=== PATIENT | male | born 1975 | race Two or more races ===

== ENCOUNTER 2016-10-08 10:22 | Emergency (ER) | payer OTHER ==
[2016-10-08 10:26] VITALS: BP 142/96; PULSE 108; TEMP 98.5; BMI 27.4
[2016-10-08] MEDS ORDERED: IBUPROFEN 600 MG TABLET (FP) PO ONE ×2 (10:39→10:40)
--- NOTE | 2016-10-08 11:07 | PDOC ---
History of Present Illness - General Chief Complaint: Pain, Acute Stated Complaint: LT KNEE PAIN Time Seen by Provider: 10/08/16 10:34 History Source: Patient Exam Limitations: No Limitations - History of Present Illness Initial Comments: 10/08/16 10:57 41 yr male with left knee injury yesterday playing baseball was running and twisted the knee on uneven grass surface. Pt did not fall on the knee. Occurred: reports: yesterday Severity: Yes: moderate Lower Extremity Pain Location: left: knee Method of Injury: Yes: twisted Lower Ext. Injury Location - Specific Injury Location Knees: left pain Past History - Past Medical History Allergies/Adverse Reactions: Allergies Allergy/AdvReac Type Severity Reaction Status Date / Time No Known Allergies Allergy Verified 10/08/16 10:25 Home Medications: Ambulatory Orders NK [No Known Home Medication] 10/08/16 HTN: Yes Hypercholesterolemia: Yes - Immunization History Immunization Up to Date: Yes - Psycho/Social/Smoking Cessation Hx Anxiety: No Suicidal Ideation: No Smoking History: Never smoked Have you smoked in the past 12 months: Yes Number of Cigarettes Smoked Daily: 2 'Breaking Loose' booklet given: 10/26/15 Hx Alcohol Use: Yes (SOCIAL) Drug/Substance Use Hx: No Substance Use Type: None Review of Systems - Review of Systems Able to Perform ROS?: Yes Is the patient limited Yoruba proficient: No Musculoskeletal: Yes: Symptoms Reported *Physical Exam - Vital Signs Last Vital Signs Temp Pulse Resp BP Pulse Ox 98.5 F 108 H 18 142/96 97 10/08/16 10:22 10/08/16 10:22 10/08/16 10:22 10/08/16 10:22 10/08/16 10:22 - Physical Exam General Appearance: Yes: Nourished, Appropriately Dressed HEENT: positive: EOMI, SHERIE Musculoskeletal: positive: Normal Inspection Extremity: positive: Normal Capillary Refill, Normal Inspection, Tender ( lateral knee, no bony tenderness FROM no swelling ). negative: Swelling, Erythema, Inflammation Integumentary: positive: Normal Color, Dry, Warm Neurologic: positive: Fully Oriented, Alert, Normal Mood/Affect, Normal Response , Motor Strength 5/5 Procedures - Splinting Pre-Made Type: knee immobilizer ED Treatment Course - RADIOLOGY Radiology Studies Ordered: Category Date Time Status KNEE 3 POS-LEFT [RAD] Stat Radiology 10/08/16 10:39 Taken - Medications Given in the ED: ED Medications Discontinued Medications Generic Name Dose Route Start Last Admin Trade Name Bianca PRN Reason Stop Dose Admin Ibuprofen 600 mg 10/08/16 10:39 10/08/16 10:47 Motrin - PO 10/08/16 10:40 600 mg ONCE ONE Administration Medical Decision Making - Medical Decision Making 10/08/16 11:09 cc: left knee twisted playing baseball yesterday will xray to r/o fracture, dislocation or effusion motrin for pain knee immobilizer *DC/Admit/Observation/Transfer Diagnosis at time of Disposition: Left knee sprain Qualifiers: Encounter type: initial encounter Involved ligament of knee: unspecified ligament Qualified Code(s): S83.92XA - Sprain of unspecified site of left knee, initial encounter - Discharge Dispostion Disposition: HOME Condition at time of disposition: Good - Referrals Referrals: Nick Little MD [Staff Physician] - - Patient Instructions Additional Instructions: elevate and apply ice every 2hrs for 20 minutes take motrin for pain as needed use the immobilizer while awake remove to sleep and bathe follow with the orthopedist this week
== END 2016-10-08 11:26 | disposition home or self-care (01) ==
LOC: JERFT 10:22
PROC: 2W3RXYZ Immobilization of Left Lower Leg using Other Device (ICD-10-PCS; principal; 2016-10-08)
DX: S83.8X2A Sprain of other specified parts of left knee, initial encounter (principal); X50.1XXA Overexertion from prolonged static or awkward postures, initial encounter; Y93.64 Activity, baseball; Y92.320 Baseball field as the place of occurrence of the external cause; Y99.8 Other external cause status
CPT/HCPCS: 73562-TC-LT; 99281-25

== ENCOUNTER 2016-12-27 14:19 | Inpatient (IN) | payer OTHER ==
[~2016-12-27 14:19] MED LIST: NITROGLYCERIN 0.4 MG/HOUR TD PATCH TD ONE
--- NOTE | 2016-12-27 14:27 | PDOC ---
Rapid Medical Evaluation Chief Complaint: Chest Pain Time Seen by Provider: 12/27/16 14:22 Medical Evaluation: Allergies Allergy/AdvReac Type Severity Reaction Status Date / Time No Known Allergies Allergy Verified 10/08/16 10:25 12/27/16 14:24 I have performed a brief in-person evaluation of this patient. The patient presents with a chief complaint of: Chest tightness w/ ?sob x several days. H/o HTN, not currently on meds. Last travel to [facility] >1 month ago Pertinent physical exam findings:BP 151/107, chest/lungs clear I have ordered the following:ekg/labs/cxr The patient will proceed to the ED for further evaluation.
--- NOTE | 2016-12-27 15:08 | PDOC ---
Attending Attestation - HPI HPI: 12/27/16 15:13 Pt is a 41 yo M with a PMHx of HTN, HLD who presents to the ED with substernal chest pain, radiating to the lower back with associated SOB for the past several days. Patient's last travel was one month ago to [facility]. - Medical Decision Making 12/27/16 15:13 Documentation prepared by Jackie Moreno, acting as associate medical director for Wellington Serra MD <Jackie Moreno - Last Filed: 12/27/16 15:25> - Resident Resident Name: Raul Sanchez - ED Attending Attestation I have performed the following: I have examined & evaluated the patient, The case was reviewed & discussed with the resident, I agree w/resident's findings & plan, Exceptions are as noted - Physicial Exam PE: 12/27/16 16:04 Patient is awake and alert, anxious appearing, in no distress; nc, atr perrla, eomi cta rrr sft, nt, nd no edema - Medical Decision Making 12/27/16 16:04 Patient is a 41-year-old male with history of alcohol abuse who presents to the ER with substernal chest discomfort, shortness of breath, dizziness and lightheadedness. In the ER, patient is afebrile, anxious appearing. EKG shows Q waves in 3 and aVF, as well as poor R wave progression in the precordial leads. I suspect ACS. Patient's CBC is concerning for elevated hemoglobin and hematocrit consistent with polycythemia (unlikely hemoconcentration). We'll administer aspirin, Pepcid, thiamine, we'll obtain chest x-ray to rule out cardiomegaly. Will hydrate. Likely admission. <Wellington Serra - Last Filed: 12/27/16 16:05>
[2016-12-27 15:17] LABS: EOSINOPHIL 0.8 % (0-4.5); MCH 34.4 pg (25.7-33.7); MCHC 33.9 g/dl (32.0-35.9); MEAN CELL VOLUME 101.5 fl (80-96); MEAN PLT VOLUME 8.8 fl (7.5-11.1); NEUTROPHILS 49.2 % (42.8-82.8); PLATELET COUNT 236 K/MM3 (134-434); RDW 14.5 % (11.9-15.9); WHITE BLOOD COUNT 5.8 K/mm3 (4.0-10.0)
[2016-12-27] MEDS ORDERED: ASPIRIN 81 MG CHEWABLE TABLETS PO ONE (15:17)
[2016-12-27] MEDS ORDERED: FAMOTIDINE 20 MG/50 ML IVPB 20 MG/50 ML MG IVPB ONE ×2 (15:17→15:27)
[2016-12-27] MEDS ORDERED: THIAMINE HCL 200 MG/2 ML VIAL IVPB ONE (15:18)
[2016-12-27] MEDS ORDERED: THIAMINE HCL 200 MG/2 ML VIAL ONE (15:27)
[2016-12-27] MEDS ORDERED: ASPIRIN 81 MG CHEWABLE TABLETS ONE (15:27)
[2016-12-27] MEDS ORDERED: NITROGLYCERIN SUBLINGUAL 1/150 0.4 MG TAB ONE (15:30)
[2016-12-27 15:31] LABS: ALBUMIN 3.4 g/dl (3.4-5.0); ANION GAP 7 (8-16); BILIRUBIN,TOTAL 1.6 mg/dL (0.2-1.0); CALCIUM 8.7 mg/dL (8.5-10.1); CO2 29 mmol/L (21-32); CPK 57 IU/L (39-308); CREATININE 1.2 mg/dL (0.7-1.3); GLUCOSE,RANDOM 117 mg/dL (74-106); SGOT/AST 94 U/L (15-37); SGPT/ALT 58 U/L (12-78); TOT PROT 7.6 g/dl (6.4-8.2)
[2016-12-27] MEDS ORDERED: NITROGLYCERIN 2% OINTMENT - 1GM PACKET TD ONE (15:31)
[2016-12-27 15:33] LABS: ALK PHOS 113 U/L (45-117); TROPONIN I < 0.02 ng/ml (0.00-0.05)
[2016-12-27] MEDS ORDERED: SODIUM CHLORIDE 1,000 ML IV STA ×2 (15:45→18:31)
--- NOTE | 2016-12-27 15:45 | PDOC ---
History of Present Illness <Wellington Serra - Last Filed: 12/27/16 17:50> - General History Source: Patient - History of Present Illness Presenting Symptoms: Dizziness, Short of Breath Timing/Duration: reports: intermittent Severity/Quality: reports: pressure Location: reports: substernal Chest Pain Radiation: reports: no radiation Nitro Today/Relief: Yes: 0.4 mg x 1, provided by ED Aspirin Received prior to arrival (Core Measure): Yes: 81 mg x 2, provided by ED Associated Symptoms: Yes: Dizziness, Palpitations, Shortness of Breath <Raul Sanchez - Last Filed: 12/27/16 18:48> - General Chief Complaint: Chest Pain Stated Complaint: CHEST PAIN Time Seen by Provider: 12/27/16 14:22 - History of Present Illness Initial Comments: 12/27/16 15:38 Patient is a 41 yo M with PMHx of HTN and HLD (not on any meds), presented today because of intermittent substernal chest pressure x 3-4 days that lasts about 30-45 minutes. He also says he has associated shortness of breath and dizziness when he gets the chest pressure. He feels as if he does not get enough air when he takes a deep breath. He has been drinking 40 ounces of beer every day for the last few months because of stress. He says drinking exacerbates his symptoms even though he drinks to try to alleviate his symptoms. He mentions he gets anxiety and panic attacks at times. He denies LOC , vertigo, headaches, itching, cough, fevers. abdominal pain, headaches, and weakness. (Raul Sanchez) Past History <Wellington Serra - Last Filed: 12/27/16 17:50> - Travel Traveled outside of the country in the last 30 days: No If so, where?: Traveled a month and a half ago to [facility] - Past Medical History COPD: No HTN: Yes (OFF MEDS) Hypercholesterolemia: Yes (OFF MEDS) - Family Disease History Family Disease History: Diabetes: Father, Heart Disease: Father - Immunization History Immunization Up to Date: Yes - Suicide/Smoking/Psychosocial Hx Smoking History: Never smoked Have you smoked in the past 12 months: Yes Number of Cigarettes Smoked Daily: 1 (1 ciggarrete a week) 'Breaking Loose' booklet given: 10/26/15 Hx Alcohol Use: Yes (40 ounces a day) Drug/Substance Use Hx: No Substance Use Type: Alcohol Hx Substance Use Treatment: No Lives with/in: spouse/SO <Raul Sanchez - Last Filed: 12/27/16 18:48> - Past Medical History Allergies/Adverse Reactions: Allergies Allergy/AdvReac Type Severity Reaction Status Date / Time No Known Allergies Allergy Verified 12/27/16 14:27 Home Medications: Ambulatory Orders NK [No Known Home Medication] 10/08/16 Review of Systems - Review of Systems Able to Perform ROS?: Yes Constitutional: Yes: Diaphoresis (when he drinks). No: Fever, Night Sweats, Weakness Respiratory: Yes: Shortness of Breath. No: Cough, Wheezing Cardiac (ROS): Yes: Palpitations, Chest Tightness. No: Syncope ABD/GI: No: Diarrhea, Nausea Neurological: Yes: Numbness (right hong numbness) Psychiatric: Yes: Anxiety <Raul Sanchez - Last Filed: 12/27/16 18:48> *Physical Exam <Wellington Serra - Last Filed: 12/27/16 17:50> <Raul Sanchez - Last Filed: 12/27/16 18:48> - Vital Signs Last Vital Signs Temp Pulse Resp BP Pulse Ox 97.7 F 68 16 135/94 99 12/27/16 14:24 12/27/16 17:52 12/27/16 17:52 12/27/16 18:36 12/27/16 14:24 - Physical Exam Comments: 12/27/16 16:17 General: Patient in no acute distress, anxious appearing HEENT: anicteric, oropharyanx clear without exudates CV:Regular rate, rhythm, no murmurs appreciated, pulses 1+ radial, No JVD Lung: CTA b/l, no rales, rhonchi or wheezing Abd: normoactive bowel sounds, nontender, non-distended, no hepatomegaly Ext: hand tremors, no bruising, cyanosis, edema, rashes (Raul Sanchez) ED Treatment Course - LABORATORY CBC & Chemistry Diagram: 12/27/16 14:55 12/27/16 14:55 <Wellington Serra - Last Filed: 12/27/16 17:50> - LABORATORY CBC & Chemistry Diagram: 12/27/16 14:55 12/27/16 14:55 <Raul Sanchez - Last Filed: 12/27/16 18:48> - ADDITIONAL ORDERS Additional order review: Laboratory Results 12/27/16 12/27/16 12/27/16 16:29 16:28 16:28 PT with INR 11.90 H INR 1.05 D-Dimer Sodium Potassium Chloride Carbon Dioxide Anion Gap BUN Creatinine Creat Clearance w eGFR Random Glucose Calcium Magnesium 1.9 Total Bilirubin AST ALT Alkaline Phosphatase Creatine Kinase 46 Troponin I < 0.02 Total Protein Albumin 12/27/16 12/27/16 16:06 14:55 PT with INR INR D-Dimer < 200 Sodium 136 Potassium 3.8 Chloride 100 Carbon Dioxide 29 Anion Gap 7 L BUN 2 L* D Creatinine 1.2 Creat Clearance w eGFR > 60 Random Glucose 117 H Calcium 8.7 Magnesium Total Bilirubin 1.6 H D AST 94 H D ALT 58 D Alkaline Phosphatase 113 D Creatine Kinase 57 Troponin I < 0.02 Total Protein 7.6 Albumin 3.4 12/27/16 14:55 RBC 5.80 H MCV 101.5 H MCHC 33.9 RDW 14.5 MPV 8.8 Neutrophils % 49.2 D Lymphocytes % 39.5 D Monocytes % 9.5 D Eosinophils % 0.8 Basophils % 1.0 - Medications Given in the ED: ED Medications Discontinued Medications Generic Name Dose Route Start Last Admin Trade Name Titoq PRN Reason Stop Dose Admin Aspirin 162 mg 12/27/16 15:17 12/27/16 15:32 Asa - PO 12/27/16 15:18 162 mg ONCE ONE Administration Famotidine/Sodium Chloride 20 mg in 50 mls @ 100 mls/hr 12/27/16 15:17 15:43 Pepcid 20 Mg Premixed Ivpb - IVPB 12/27/16 15:46 100 mls/hr ONCE ONE Administration Sodium Chloride 1,000 mls @ 1,000 mls/hr 12/27/16 15:45 12/27/16 16:10 Normal Saline - IV 12/27/16 16:44 1,000 mls/hr ASDIR STA Administration Nitroglycerin 0.4 mg 12/27/16 10:00 12/27/16 17:46 Nitro-Dur Patch - TD 12/27/16 10:01 0.4 mg ONCE ONE Administration Thiamine HCl 200 mg 12/27/16 15:18 12/27/16 15:51 Vitamin B1 Injection - IVPB 12/27/16 15:19 200 mg ONCE ONE Administration Medical Decision Making <Wellington Serra - Last Filed: 12/27/16 17:50> <Raul Sanchez - Last Filed: 12/27/16 18:48> - Medical Decision Making 12/27/16 16:21 Patient is a 41-year-old male with PMHx of HTN, HLD (not on any meds)presents to the ER with substernal chest discomfort, shortness of breath, dizziness and lightheadedness. EKG: Q waves in 3 and aVF, as well as poor R wave progression in the precordial leads. CBC: Hemoglobin 20, Crit 58.8 (likely polycythemia vera) Pending CXR IV fluids Aspirin 162 Nitroglycerin Thiamine 200 IV (recent drinking the last few months) Pt/INR Trops Pepcid Will admit patient for possible ACS, polycythemia 12/27/16 16:53 FU D-Dimer Trops negative CXR unremarkable Will contact hospitalist for admission inpatient-tele 12/27/16 16:55 Discussed case with hospitalized and agreed to admit. (Raul Sanchez) *DC/Admit/Observation/Transfer - Discharge Dispostion Admit: Yes <Wellington Serra - Last Filed: 12/27/16 17:50> - Discharge Dispostion Admit: Yes <Rual Sanchez - Last Filed: 12/27/16 18:48> Diagnosis at time of Disposition: Acute coronary syndrome, Polycythemia, Alcohol abuse - Discharge Dispostion Condition at time of disposition: Fair Decision to Admit order Date/Time: Decision to Admit Order Category Date Time Status Decision to Admit to Hospital Routine Admission 12/27/16 17:43 Active
[2016-12-27 16:51] LABS: INR 1.05 (0.82-1.09); PROTHROMBIN TIME (PATIENT) 11.9 SEC (9.98-11.88)
[2016-12-27 17:21] LABS: CPK 46 IU/L (39-308); TROPONIN I < 0.02 ng/ml (0.00-0.05)
--- NOTE | 2016-12-27 18:26 | PN ---
Teaching Attending Note Name of Resident: Georgina Sanchez ATTENDING PHYSICIAN STATEMENT I saw and evaluated the patient. I reviewed the resident's note and discussed the case with the resident. I agree with the resident's findings and plan as documented. SUBJECTIVE:41yo M with PMH HTN, dyslipidemia, HTN and anxiety with likley PTSD presenting to the ER with intermittent CP x3 days. assoc with SOB and dizzyness. states its more of a chest pressure non radiating not related to activity or rest that would self resolved in several minutes. states he has suffered from anixety and intermittent CP for years since 10/23 and had normal echo last month and normal treadmill stress test about 10 years ago. states he had lab work done about month ago and as per pt everything was fine. also admits to heavy drinking 40oz beer daily, poor oral intake with 15lb weight loss over the past few months. states he has food sticking sensation and has limited himself to only liquids and soft foods. denies fever, chills, N/V/C/D, pruritis after shower, hand swelling or erythema, recent travel to locations of high altitude, blood doping, Family hx only significant for congenital aortic valve disorder, no cardiac disease, no sudden deaths unexplained. no blood disorders OBJECTIVE: Last Vital Signs Temp Pulse Resp BP Pulse Ox 97.7 F 68 16 142/100 99 12/27/16 14:24 12/27/16 17:52 12/27/16 17:52 12/27/16 17:52 12/27/16 14:24 General mildly anxious HEENT face is not swollen or erythematous CV S1 S2 tachycardic no chest wall tenderness Lungs CTA B/L no wheezing/rales/rhonchi Abdomen soft NT/ND extremities no edema. no hand erythema or swelling ASSESSMENT AND PLAN: 41yo M with PMH HTN, dyslipidemia, anxiety with underlying PTSD and ETOH dependence presnted to the ER with chest pressure and found to have plycythema 1. Polycythemia- tele admission. concern that might be having hyperviscosity leading to chest pain, however this may be dehydration related. CXR clear. SpO2 99% on RA. no signs of hypoxia. labs from 2016 appear WNL. spoke with hematology who agrees with repeating labs and monitoring for improvement. if no improvement will need to consider phlebotomy. EPO pending. will need workup for causes of polycythemia 2. CP- possible due polycythemia vs stress induced. CEE 2. received full dose ASA and NTG patch in the ER. cardiac enzymes neg x2. will monitor on cardiac monitoring. call PMD for recent lab work, echo and EKG to compare. 3. Macrocytosis- likely due to ETOH. check vitamin B12 and folate 4. HTN- elevated diastolic HTN. will give lisinopril 5mg and monitor for response. 5. ETOH dependence- CIWA 2 (due to anxiety). no signs of withdrawal. admits to having drinking problem and interested in inpatient program. will consult detox specialist. has not completed inpatient rehab in the past. counseled on risks of drinking and increased mortality 6. Odynophagia- Gi workup as outpatient. 7. Anxiety and underlying PTSD- was seeing psychiatrist in the past which he stopped. encouraged to follow up on discharge. no homocidal/suicidal idealations 8. Dyslipidemia- check lipid profile. 9. DVT ppx- lovenox
[2016-12-27] MEDS ORDERED: LISINOPRIL 5 MG TABLET (FP) PO ONE (18:39)
[2016-12-27] MEDS ORDERED: SODIUM CHLORIDE 1,000 ML IV SCH (18:45)
[2016-12-27] MEDS ORDERED: FOLIC ACID INJECTION - 1 MG, THIAMINE HCL 100 MG, MULTIVIT INJECTION ADULT 10 ML in SOD... IVPB ONE (18:47)
[2016-12-27 18:50] LABS: MCHC 34.4 g/dl (32.0-35.9); MEAN CELL VOLUME 101.6 fl (80-96); MEAN PLT VOLUME 8.7 fl (7.5-11.1); PLATELET COUNT 268 K/MM3 (134-434); RDW 14.5 % (11.9-15.9); WHITE BLOOD COUNT 9.4 K/mm3 (4.0-10.0)
--- NOTE | 2016-12-27 18:55 | HP ---
CHIEF COMPLAINT: Chest Pressure, anxiety PCP: Dr. Cochran (in the [place]) HISTORY OF PRESENT ILLNESS: Patient is a 41 year old male with a PMHx of HTN and HLD (on no medications), anxiety who presented today complaining of intermittent chest pressure for the last three days associated with shortness of breath and dizziness. Patient reports the chest pressure occurs throughout the day and lasts around 35-40 minutes, nonradiating with no alleviating or exacerbating factors. Patient reports a history of anxiety associated with chest pressure shortness of breath for several years for which he went to his PCP for and had an echo done last month. Patient also admits to heavy daily alcohol use of 40 ounces of beer daily with poor oral intake and a 15 pound weight loss. Patient however denies any nausea, vomiting, abdominal pain, diarrhea, constipation, pruritis after showering, hand swelling or erythem, blood disorder, or diagnosed cardiac disease. ER course was notable for: (1) IV fluids (2) EKG which revealed Q waves in 3 and aVF, as well as poor R wave progression in the precordial lead (3) Nitroglycerin Recent Travel: Traveled a month and a half ago to [facility] PAST MEDICAL HISTORY: HTN and HLD but his PCP stopped his medications last month PAST SURGICAL HISTORY: Denies Social History: Smoking:Denies Alcohol: 40 ounces of beer a day for the last several months. Drugs: Denies Family History: Sister- Congenital aortic valve disorder Allergies: No Known Allergies Allergy (Verified 12/27/16 14:27) HOME MEDICATIONS: Home Medications Medication Instructions Recorded NK [No Known Home Medication] 10/08/16 REVIEW OF SYSTEMS CONSTITUTIONAL: diaphoresis Absent: fever, chills, generalized weakness, malaise, loss of appetite, weight change HEENT: Absent: rhinorrhea, nasal congestion, throat pain, throat swelling, difficulty swallowing, mouth swelling, ear pain, eye pain, visual changes CARDIOVASCULAR: Chest pressure Absent: chest pain, syncope, palpitations, irregular heart rate, lightheadedness , peripheral edema RESPIRATORY: shortness of breath Absent: cough, dyspnea with exertion, orthopnea, wheezing, stridor, hemoptysis GASTROINTESTINAL: Absent: abdominal pain, abdominal distension, nausea, vomiting, diarrhea, constipation, melena, hematochezia GENITOURINARY: Absent: dysuria, frequency, urgency, hesitancy, hematuria, flank pain, genital pain MUSCULOSKELETAL: Absent: myalgia, arthralgia, joint swelling, back pain, neck pain SKIN: Absent: rash, itching, pallor HEMATOLOGIC/IMMUNOLOGIC: Absent: easy bleeding, easy bruising, lymphadenopathy, frequent infections ENDOCRINE: Weight loss Absent: unexplained weight gain, heat intolerance, cold intolerance NEUROLOGIC: Absent: headache, focal weakness or paresthesias, dizziness, unsteady gait, seizure, mental status changes, bladder or bowel incontinence PSYCHIATRIC: Anxiety Absent: depression, suicidal or homicidal ideation, hallucinations. PHYSICAL EXAMINATION Vital Signs - 24 hr 12/27/16 12/27/16 12/27/16 14:24 17:52 18:36 Temperature 97.7 F Pulse Rate 95 H Pulse Rate [ 68 Apical] Respiratory 20 16 Rate Blood Pressure 151/107 Blood Pressure 142/100 135/94 [Right Arm] O2 Sat by Pulse 99 Oximetry (%) GENERAL: Anxious, Awake, alert, and fully oriented, in no acute distress. HEAD: Normal with no signs of trauma. EYES: Pupils equal, round and reactive to light, extraocular movements intact, sclera anicteric, conjunctiva clear. EARS, NOSE, THROAT: Oropharynx clear without exudates. Moist mucous membranes. NECK: Normal range of motion, supple without lymphadenopathy, JVD, or masses. LUNGS: Breath sounds equal, clear to auscultation bilaterally. No wheezes, and no crackles. No accessory muscle use. HEART: Tachycardic with regular rhythm, normal S1 and S2 without murmur, rub or gallop. ABDOMEN: Soft, nontender, not distended, normoactive bowel sounds, no guarding, no rebound, no masses. MUSCULOSKELETAL: No CVA tenderness. UPPER EXTREMITIES: No peripheral edema. LOWER EXTREMITIES: No peripheral edema. NEUROLOGICAL: Cranial nerves II-XII intact. Normal speech. Normal gait. PSYCHIATRIC: Cooperative. Good eye contact. Anxious SKIN: Warm, dry, normal turgor, no rashes or lesions noted, normal capillary refill. Laboratory Results - last 24 hr 12/27/16 12/27/16 12/27/16 14:55 14:55 16:06 WBC 5.8 RBC 5.80 H Hgb 20.0 H D Hct 58.8 H D MCV 101.5 H MCH 34.4 H D MCHC 33.9 RDW 14.5 Plt Count 236 MPV 8.8 Neutrophils % 49.2 D Lymphocytes % 39.5 D Monocytes % 9.5 D Eosinophils % 0.8 Basophils % 1.0 PT with INR INR D-Dimer < 200 Sodium 136 Potassium 3.8 Chloride 100 Carbon Dioxide 29 Anion Gap 7 L BUN 2 L* D Creatinine 1.2 Creat Clearance w eGFR > 60 Random Glucose 117 H Calcium 8.7 Magnesium Total Bilirubin 1.6 H D AST 94 H D ALT 58 D Alkaline Phosphatase 113 D Creatine Kinase 57 Troponin I < 0.02 Total Protein 7.6 Albumin 3.4 12/27/16 12/27/16 12/27/16 16:28 16:28 16:29 WBC RBC Hgb Hct MCV MCH MCHC RDW Plt Count MPV Neutrophils % Lymphocytes % Monocytes % Eosinophils % Basophils % PT with INR 11.90 H INR 1.05 D-Dimer Sodium Potassium Chloride Carbon Dioxide Anion Gap BUN Creatinine Creat Clearance w eGFR Random Glucose Calcium Magnesium 1.9 Total Bilirubin AST ALT Alkaline Phosphatase Creatine Kinase 46 Troponin I < 0.02 Total Protein Albumin IMAGES Chest X-ray (12/27/16): No acute pathology ASSESSMENT/PLAN: Patient is a 41 year old male who presented for chest pressure and was found to have abnormal EKG and possible polycythemia. Patient admitted for further monitoring and management. Polycythemia -Elevated Hgb and HCT. Patient complaining of shortness of breath and chest pressure. Concerning for possible hyperviscosity/hypercoaguable causing the cp and sob. -Will rule out hemoconcentration due to dehydration and lack of oral intake with increasing alcohol intake -Repeat CBC ordered after IV fluids -Hematology consult placed and recommends repeating labs and if no improvement will begin phlebotomy -EPO levels pending -Will need polycythemia work up -Continue to trend CBC Chest Pressure -Possible secondary to Polycythemia vs. anxiety and stressed induced -CEE socre : 2 -ASA loading dose given in ED. Will continue Aspirin 81mg daily -Troponins negative x2. Repeat third at 22:00 -ECHO done one month ago. Will need to contact PCP in the morning for results -TSH ordered Macrocytosis -MCV >100 -Likly secondary to alcohol abuse -Will continue to repeat CBC -Vitamin B12 and Folate pending -Hematology on board Alcohol Dependence -CIWA score of 2 -No signs of withdrawal symptoms -Interested in inpatient rehab -Detox consult placed -Will likely require Librium protocol HTN -No longer on medications as of last month from PCP -Currently Elevated and one dose of Lisinopril. Likely secondary to anxiety. Will wait for response. If continues to have elevated BP will consider adding. HLD -No longer on medications as of last month from PCP -Lipid Panel ordered Anxiety with underlying PTSD -Reports he was seeing a psychiatrist but stopped. Spoke to him about the benefits of seeing one as outpatient. Patient denies any suicidal or homocidal ideations. -Would consider possible medication F/E/N -IV NS @150 mls/hr -Electrolytes wnl -Regular diet Prophylaxis -High risk. Lovenox 40mg SQ daily for DVT. EAM -No GI required Disposition -Full code -ACS workup and Polycythemia workup. Will need inpatient Visit type - Emergency Visit Emergency Visit: Yes ED Registration Date: 12/27/16 Care time: The patient presented to the Emergency Department on the above date and was hospitalized for further evaluation of their emergent condition. - New Patient This patient is new to me today: Yes Date on this admission: 12/27/16 - Critical Care Critical Care patient: No
[2016-12-27] MEDS ORDERED: LISINOPRIL 5 MG TABLET (FP) ONE (19:00)
[2016-12-27] MEDS ORDERED: chlordiazePOXIDE HCL 25 MG CAPSULE PO ONE (19:04)
[2016-12-27] MEDS ORDERED: chlordiazePOXIDE HCL 25 MG CAPSULE PO PRN (19:06)
[2016-12-27] MEDS ORDERED: chlordiazePOXIDE HCL 25 MG CAPSULE ONE (19:51)
[2016-12-27 21:26] VITALS: BMI 26.4
[2016-12-27] MEDS ORDERED: chlordiazePOXIDE HCL 25 MG CAPSULE PO SCH (22:00)
--- NOTE | 2016-12-27 23:04 | CONSULT ---
Consult Consult Specialty:: Hematology - History Source History Provided By: Patient, Family Member Limitations to Obtaining History: No Limitations - Alcohol/Substance Use Hx Alcohol Use: Yes (40 ounces a day) - Smoking History Smoking history: Never smoked Have you smoked in the past 12 months: No Aproximately how many cigarettes per day: 1 (1 ciggarrete a week) Home Medications - Allergies Allergies/Adverse Reactions: Allergies Allergy/AdvReac Type Severity Reaction Status Date / Time No Known Allergies Allergy Verified 12/27/16 14:27 - Home Medications Home Medications: Ambulatory Orders NK [No Known Home Medication] 10/08/16 Physical Exam Vital Signs: Vital Signs Temperature 98.4 F 12/27/16 21:02 Pulse Rate 95 H 12/27/16 21:02 Respiratory Rate 20 12/27/16 21:02 Blood Pressure 131/92 12/27/16 21:02 O2 Sat by Pulse Oximetry (%) 98 12/27/16 21:02 Labs: CBC, BMP 12/27/16 18:36 12/27/16 14:55 Assessment/Plan Etiology at this time is unknown for his polycythemia. While work-up is warranted to rule out a primary myelo-proliferative disorder , eg P Vera, owing to his Hct in 2014 and 2015, I do think there is a component of hemoconcentration due to his chronic alcohol intake. He remains symptom free at this time , BP controlled . Had a long discussion with pt.opted to continue fluids and follow Hct and will perform therapeutic phlebotomy when needed To begin with , EPO level ordered. rest of the w/u to be sent slightly elevated LFTs noted , likely from alcohol, r.o Hep panel US abdomen to r/o [facility] Pt on ASA. c/w IVF. Our office info given for follow-up post dc dvt ppx. will follow closely. d/w night hospitalist, Resident
[2016-12-28 07:04] LABS: MCH 34.7 pg (25.7-33.7); MCHC 33.8 g/dl (32.0-35.9); MEAN CELL VOLUME 102.6 fl (80-96); MEAN PLT VOLUME 8.7 fl (7.5-11.1); PLATELET COUNT 169 K/MM3 (134-434); RDW 14.3 % (11.9-15.9); WHITE BLOOD COUNT 4.7 K/mm3 (4.0-10.0)
[2016-12-28 07:22] LABS: ANION GAP 10 (8-16); CALCIUM 7.7 mg/dL (8.5-10.1); CHOLESTEROL 63 mg/dL (50-200); CO2 23 mmol/L (21-32); GLUCOSE,RANDOM 83 mg/dL (74-106); LDH 139 U/L (87-241); MAGNESIUM 1.7 mg/dL (1.8-2.4); PHOSPHOROUS 3.3 mg/dL (2.5-4.9)
[2016-12-28] MEDS ORDERED: LISINOPRIL 5 MG TABLET (FP) PO SCH (08:00)
--- NOTE | 2016-12-28 08:35 | CONSULT ---
Consult Detox [facility] Reason for Current Admission/Consult: evaluation of alcohol use for possible detox Referred by:: Gavi Brown - History History of Present Illness: 41 yo m admitted from ED with chest pressure, SOB and dizziness PMHx of HTN and HLD (on no medications), anxiety. Reports heavy daily alcohol use of 40 ounces of malt beer daily with poor oral intake and a 15 pound weight loss. first drink when he gets up, if he does not drink has anxiety, sweats and tremulousness, no h/o seizures or DTS. was given libirum overnight but still symptomatic. librium detox ordered. Vital Signs - 8 hr 12/28/16 12/28/16 07:00 08:10 Temperature 97.4 F L 98.2 F Pulse Rate 58 L 54 L Respiratory 20 14 Rate Blood Pressure 114/60 114/84 Vital Signs - 24 hr 12/27/16 12/27/16 12/27/16 14:24 17:52 18:36 Temperature 97.7 F Pulse Rate 95 H Pulse Rate [ 68 Apical] Respiratory 20 16 Rate Blood Pressure 151/107 Blood Pressure 142/100 135/94 [Right Arm] O2 Sat by Pulse 99 Oximetry (%) 12/27/16 12/27/16 12/27/16 20:11 21:00 21:02 Temperature 98.4 F Pulse Rate 95 H Pulse Rate [ 68 Apical] Respiratory 18 20 20 Rate Blood Pressure 131/92 Blood Pressure 139/94 [Right Arm] O2 Sat by Pulse 98 98 98 Oximetry (%) 12/28/16 12/28/16 12/28/16 02:00 07:00 08:10 Temperature 97.6 F 97.4 F L 98.2 F Pulse Rate 71 58 L 54 L Pulse Rate [ Apical] Respiratory 20 20 14 Rate Blood Pressure 104/49 114/60 114/84 Blood Pressure [Right Arm] O2 Sat by Pulse Oximetry (%) Laboratory Tests 12/27/16 12/27/16 12/27/16 14:55 14:55 16:06 WBC 5.8 RBC 5.80 H Hgb 20.0 H D Hct 58.8 H D MCV 101.5 H MCH 34.4 H D MCHC 33.9 RDW 14.5 Plt Count 236 MPV 8.8 Neutrophils % 49.2 D Lymphocytes % 39.5 D Monocytes % 9.5 D Eosinophils % 0.8 Basophils % 1.0 PT with INR INR D-Dimer < 200 Sodium 136 Potassium 3.8 Chloride 100 Carbon Dioxide 29 Anion Gap 7 L BUN 2 L* D Creatinine 1.2 Creat Clearance w eGFR > 60 Random Glucose 117 H Calcium 8.7 Phosphorus Magnesium Erythropoietin Total Bilirubin 1.6 H D AST 94 H D ALT 58 D Alkaline Phosphatase 113 D LD Total Creatine Kinase 57 Troponin I < 0.02 Total Protein 7.6 Albumin 3.4 Triglycerides Cholesterol Total LDL Cholesterol HDL Cholesterol Vitamin B12 Serum Folate TSH Opiates Screen Methadone Screen Barbiturate Screen Phencyclidine Screen Ur Amphetamines Screen MDMA (Ecstasy) Screen Benzodiazepines Screen Cocaine Screen U Marijuana (THC) Screen 12/27/16 12/27/16 12/27/16 16:28 16:28 16:29 WBC RBC Hgb Hct MCV MCH MCHC RDW Plt Count MPV Neutrophils % Lymphocytes % Monocytes % Eosinophils % Basophils % PT with INR 11.90 H INR 1.05 D-Dimer Sodium Potassium Chloride Carbon Dioxide Anion Gap BUN Creatinine Creat Clearance w eGFR Random Glucose Calcium Phosphorus Magnesium 1.9 Erythropoietin Total Bilirubin AST ALT Alkaline Phosphatase LD Total Creatine Kinase 46 Troponin I < 0.02 Total Protein Albumin Triglycerides Cholesterol Total LDL Cholesterol HDL Cholesterol Vitamin B12 Serum Folate TSH Opiates Screen Methadone Screen Barbiturate Screen Phencyclidine Screen Ur Amphetamines Screen MDMA (Ecstasy) Screen Benzodiazepines Screen Cocaine Screen U Marijuana (THC) Screen 12/27/16 12/27/16 12/27/16 18:36 18:36 21:40 WBC 9.4 D RBC 5.59 Hgb 19.5 H Hct 56.8 H MCV 101.6 H MCH 35.0 H MCHC 34.4 RDW 14.5 Plt Count 268 MPV 8.7 Neutrophils % Lymphocytes % Monocytes % Eosinophils % Basophils % PT with INR INR D-Dimer Sodium Potassium Chloride Carbon Dioxide Anion Gap BUN Creatinine Creat Clearance w eGFR Random Glucose Calcium Phosphorus Magnesium Erythropoietin Cancelled Total Bilirubin AST ALT Alkaline Phosphatase LD Total Creatine Kinase Troponin I < 0.02 Total Protein Albumin Triglycerides Cholesterol Total LDL Cholesterol HDL Cholesterol Vitamin B12 Serum Folate TSH Opiates Screen Methadone Screen Barbiturate Screen Phencyclidine Screen Ur Amphetamines Screen MDMA (Ecstasy) Screen Benzodiazepines Screen Cocaine Screen U Marijuana (THC) Screen 12/28/16 12/28/16 12/28/16 05:10 05:10 05:10 WBC 4.7 D RBC 4.60 Hgb 16.0 D Hct 47.2 D MCV 102.6 H MCH 34.7 H MCHC 33.8 RDW 14.3 Plt Count 169 D MPV 8.7 Neutrophils % Lymphocytes % Monocytes % Eosinophils % Basophils % PT with INR INR D-Dimer Sodium 142 Potassium 4.1 Chloride 109 H Carbon Dioxide 23 D Anion Gap 10 BUN 3 L D Creatinine 1.0 Creat Clearance w eGFR Random Glucose 83 D Calcium 7.7 L Phosphorus 3.3 Magnesium 1.7 L Erythropoietin Total Bilirubin AST ALT Alkaline Phosphatase LD Total 139 Creatine Kinase Troponin I Total Protein Albumin Triglycerides 61 Cholesterol 63 Total LDL Cholesterol 39 HDL Cholesterol 26 L Vitamin B12 Cancelled 224 Serum Folate Cancelled 40 H TSH Cancelled 1.67 D Opiates Screen Methadone Screen Barbiturate Screen Phencyclidine Screen Ur Amphetamines Screen MDMA (Ecstasy) Screen Benzodiazepines Screen Cocaine Screen U Marijuana (THC) Screen 12/28/16 06:20 WBC RBC Hgb Hct MCV MCH MCHC RDW Plt Count MPV Neutrophils % Lymphocytes % Monocytes % Eosinophils % Basophils % PT with INR INR D-Dimer Sodium Potassium Chloride Carbon Dioxide Anion Gap BUN Creatinine Creat Clearance w eGFR Random Glucose Calcium Phosphorus Magnesium Erythropoietin Total Bilirubin AST ALT Alkaline Phosphatase LD Total Creatine Kinase Troponin I Total Protein Albumin Triglycerides Cholesterol Total LDL Cholesterol HDL Cholesterol Vitamin B12 Serum Folate TSH Opiates Screen Negative Methadone Screen Negative Barbiturate Screen Negative Phencyclidine Screen Negative Ur Amphetamines Screen Negative MDMA (Ecstasy) Screen Negative Benzodiazepines Screen Positive Cocaine Screen Negative U Marijuana (THC) Screen Negative macrocytosis noted Home Medication List Medication Instructions Recorded Confirmed Type NK [No Known Home Medication] 10/08/16 12/27/16 History Active Medications Generic Name Dose Route Start Last Admin Trade Name Titoq PRN Reason Stop Dose Admin Aspirin 81 mg 12/28/16 10:00 12/28/16 10:20 Asa - PO 81 mg DAILY VICKY Administration Chlordiazepoxide HCl 25 mg 12/27/16 19:06 Librium - PO Q4H PRN WITHDRAWAL(CONT SUBST) Chlordiazepoxide HCl 25 mg 12/27/16 22:00 12/27/16 22:44 Librium - PO 25 mg HS VICKY Administration Chlordiazepoxide HCl 25 mg 12/28/16 08:48 12/28/16 10:20 Librium - PO 12/28/16 17:01 25 mg [id number] VICKY Administration Chlordiazepoxide HCl 15 mg 12/29/16 05:00 Librium - PO 12/29/16 23:01 [id number] VICKY Enoxaparin Sodium 40 mg 12/28/16 10:00 12/28/16 10:19 Lovenox - SQ 40 mg DAILY VICKY Administration Sodium Chloride 1,000 mls @ 150 mls/hr 12/27/16 18:45 12/27/16 20:30 Normal Saline - IV 150 mls/hr ASDIR VICKY Administration Lisinopril 5 mg 12/28/16 08:00 12/28/16 10:20 Prinivil PO 5 mg DAILY VICKY Administration Thiamine HCl 100 mg 12/28/16 09:00 12/28/16 10:19 Vitamin B1 - PO 100 mg HS VICKY Administration - History Source History Provided By: Patient, Medical Record Limitations to Obtaining History: No Limitations - Alcohol/Substance Use Hx Alcohol Use: Yes (40 ounces a day) - Current Drug/Alcohol Use Alcohol Route: Oral Frequency: Daily Amount used: 40 ox malt beer Age of first use: 20 Date of Last Use: 12/27/16 - Significant Medical Findings: alcohol withdrawawl sx noted, at bedside, anxious CIWA Score - CIWA Score Nausea/Vomitin-Mild Nausea/No Vomiting Muscle Tremors: 2 Anxiety: 2 Agitation: 2 Paroxysmal Sweats: 1-Minimal Palms Moist Orientation: 0-Oriented Tacttile Disturbances: 0-None Auditory Disturbances: 0-None Visual Disturbances: 0-None Headache: 0-None Present CIWA-Ar Total Score: 8 Assessment Plan - Diagnosis (1) Alcohol dependence with uncomplicated withdrawal Status: Acute (2) Macrocytosis Status: Acute (3) Alcoholic hepatitis Status: Acute - Plan Plan: chart reviewed, labs reviewed, imaging reviewed, and patient counseled. 41 yo male with severe alcohol use disorder and alcohol withdrawal syndrome as evidenced by symptoms, macrocytosis, elevated liver enzymes/hepatitis , dehydration and medical comorbidities. If patient has been medically cleared can complete detox at home with librium 25mg q6h x 24 hours, 25mg q8 h x24 hours , 25mg xq12 x24 hours and 25mg qHS x1 day as discusssed with Medical Staff Services Manager. Tomás has strong family support and should be advised to hold if sedated and no driving. follow up appointment should be scheduled for intensive outpatient care at [facility]. Nadir Sullivan MD [phone] - Medication Detox Regimen/Protocol: Librium
[2016-12-28] MEDS ORDERED: MAGNESIUM OXIDE 400 MG TABLET (FP) PO ONE (08:45)
[2016-12-28] MEDS ORDERED: PRENATAL VITAMINS W/ FOLIC ACID TABLET (FP) PO SCH (09:00)
[2016-12-28] MEDS ORDERED: THIAMINE HCL 100 MG TABLET (FP) PO SCH (09:00)
[2016-12-28 09:12] LABS: THYROID STIMULATING HORMONE 1.67 uIU/ml (0.358-3.74)
[2016-12-28] MEDS ORDERED: THIAMINE HCL 200 MG/2 ML VIAL IVPB SCH (10:00)
[2016-12-28] MEDS ORDERED: ENOXAPARIN NA (PORCINE) 40 MG/0.4 ML DISP.SYRIN SQ SCH (10:00)
[2016-12-28] MEDS ORDERED: ASPIRIN 81 MG CHEWABLE TABLETS PO SCH (10:00)
[2016-12-28] MEDS ORDERED: NITROGLYCERIN 0.4 MG/HOUR TD PATCH TD ONE (10:00)
[2016-12-28] MEDS: chlordiazePOXIDE HCL 25 MG CAPSULE PO SCH ×3 (10:20→17:23)
[2016-12-28 10:36] LABS: URINE MARIJUANA THC NEGATIVE ng/ml (CUTOFF=50)
--- NOTE | 2016-12-28 12:24 | EKG ---
Test Reason : Blood Pressure : / mmHG Vent. Rate : 073 BPM Atrial Rate : 073 BPM P-R Int : 154 ms QRS Dur : 080 ms QT Int : 404 ms P-R-T Axes : 033 -07 -10 degrees QTc Int : 445 ms NORMAL SINUS RHYTHM INFERIOR INFARCT , AGE UNDETERMINED POSSIBLE ANTERIOR INFARCT (CITED ON OR BEFORE 27-DEC-2016) ABNORMAL ECG WHEN COMPARED WITH ECG OF 07-DEC-2015 09:26, INFERIOR INFARCT IS NOW PRESENT Confirmed by ANGEL MORALES MD ([id number]) on 12/28/2016 12:24:31 PM Referred By: Confirmed By:ANGEL MORALES MD
--- NOTE | 2016-12-28 12:26 | PN ---
Teaching Attending Note Name of Resident: Matti Fitzpatrick ATTENDING PHYSICIAN STATEMENT I saw and evaluated the patient. I reviewed the resident's note and discussed the case with the resident. I agree with the resident's findings and plan as documented. SUBJECTIVE:currently asymptomatic. states he has not had any other episodes of CP while hes been here. states he was able to eat all his breakfast without difficulty. no food sticking sensation while eating breakfast (both solids and liquids). no episodes of anxiety or agitation. denies CP, SOB, fever, chills, N/ V/C/D, OBJECTIVE: Last Vital Signs Temp Pulse Resp BP Pulse Ox 98.2 F 54 L 14 114/84 98 12/28/16 08:10 12/28/16 08:10 12/28/16 08:10 12/28/16 08:10 12/27/16 21:02 General NAD CV S1 s2 RRR no murmur/rub/gallop no chest wall tenderness Lungs CTA B/L no wheezing/rales/rhonchi ASSESSMENT AND PLAN: 41yo M with PMH HTN, dyslipidemia, anxiety with underlying PTSD and ETOH dependence presnted to the ER with chest pressure and found to have plycythema 1. Polycythemia-likely dehydration as now corrected after aggressive IVF hydration, however it has been on upper limit of normal in the past. would agree with outpatient workup for myleoproliferative disorder. EPO pending. awaiting to get recent labs from PMD 2. CP- possible due polycythemia vs stress induced. CEE 2. no events on monitor. troponins neg x3. Will d/w PMD about recent EKG and echo done last month. can follow up with PMD for possible full cardiac eval as outpatient. 3. Macrocytosis- likely due to ETOH. vitamin B12 and folate pending 4. HTN- elevated diastolic HTN. now resolved. cont lisinopril. 5. ETOH dependence- CIWA 2 (due to anxiety). no signs of withdrawal. received librium x2 doses yesterday. was started on librium protocol this AM. interested in inpatient rehab. d/w detox specialist. 6. Odynophagia- no issues eating this AM. likely intermittent related to stress. Gi workup as outpatient. 7. Anxiety and underlying PTSD- was seeing psychiatrist in the past which he stopped. encouraged to follow up on discharge. no homocidal/suicidal idealations 8. Dyslipidemia-has hx. currently LDL and cholesterol WNL 9. Hypomagnesemia- mg 800mg 10. DVT ppx- lovenox 11. after discussion with PMD can be d/c from medical perspective. can be transferred to [facility] for detox.
--- NOTE | 2016-12-28 14:35 | PN ---
Physical Exam: SUBJECTIVE: Patient seen and examined at bedside. Patient states that he no longer has chest tightness. Denies any other complaints. OBJECTIVE: Vital Signs Period Temp Pulse Resp BP Sys/Chapman Pulse Ox Last 24 Hr 97.4 F-98.4 F 54-95 14-20 104-142/49-100 98-98 GENERAL: The patient is awake, alert, and fully oriented, in no acute distress. NECK: Trachea midline, full range of motion, supple. LUNGS: Breath sounds equal, clear to auscultation bilaterally, no wheezes, no crackles, no accessory muscle use. HEART: Regular rate and rhythm, S1, S2 without murmur, rub or gallop. ABDOMEN: Soft, nontender, nondistended, normoactive bowel sounds, no guarding, no rebound, no hepatosplenomegaly, no masses. EXTREMITIES: 2+ pulses, warm, well-perfused, no edema. NEUROLOGICAL: Cranial nerves II through XII grossly intact. Normal speech, gait not observed. PSYCH: Normal mood, normal affect. SKIN: Warm, dry, normal turgor, no rashes or lesions noted Laboratory Results - last 24 hr 12/27/16 12/27/16 12/27/16 14:55 14:55 16:06 WBC 5.8 RBC 5.80 H Hgb 20.0 H D Hct 58.8 H D MCV 101.5 H MCH 34.4 H D MCHC 33.9 RDW 14.5 Plt Count 236 MPV 8.8 Neutrophils % 49.2 D Lymphocytes % 39.5 D Monocytes % 9.5 D Eosinophils % 0.8 Basophils % 1.0 PT with INR INR D-Dimer < 200 Sodium 136 Potassium 3.8 Chloride 100 Carbon Dioxide 29 Anion Gap 7 L BUN 2 L* D Creatinine 1.2 Creat Clearance w eGFR > 60 Random Glucose 117 H Calcium 8.7 Phosphorus Magnesium Erythropoietin Total Bilirubin 1.6 H D AST 94 H D ALT 58 D Alkaline Phosphatase 113 D LD Total Creatine Kinase 57 Troponin I < 0.02 Total Protein 7.6 Albumin 3.4 Triglycerides Cholesterol Total LDL Cholesterol HDL Cholesterol Vitamin B12 Serum Folate TSH Opiates Screen Methadone Screen Barbiturate Screen Phencyclidine Screen Ur Amphetamines Screen MDMA (Ecstasy) Screen Benzodiazepines Screen Cocaine Screen U Marijuana (THC) Screen 12/27/16 12/27/16 12/27/16 16:28 16:28 16:29 WBC RBC Hgb Hct MCV MCH MCHC RDW Plt Count MPV Neutrophils % Lymphocytes % Monocytes % Eosinophils % Basophils % PT with INR 11.90 H INR 1.05 D-Dimer Sodium Potassium Chloride Carbon Dioxide Anion Gap BUN Creatinine Creat Clearance w eGFR Random Glucose Calcium Phosphorus Magnesium 1.9 Erythropoietin Total Bilirubin AST ALT Alkaline Phosphatase LD Total Creatine Kinase 46 Troponin I < 0.02 Total Protein Albumin Triglycerides Cholesterol Total LDL Cholesterol HDL Cholesterol Vitamin B12 Serum Folate TSH Opiates Screen Methadone Screen Barbiturate Screen Phencyclidine Screen Ur Amphetamines Screen MDMA (Ecstasy) Screen Benzodiazepines Screen Cocaine Screen U Marijuana (THC) Screen 12/27/16 12/27/16 12/27/16 18:36 18:36 21:40 WBC 9.4 D RBC 5.59 Hgb 19.5 H Hct 56.8 H MCV 101.6 H MCH 35.0 H MCHC 34.4 RDW 14.5 Plt Count 268 MPV 8.7 Neutrophils % Lymphocytes % Monocytes % Eosinophils % Basophils % PT with INR INR D-Dimer Sodium Potassium Chloride Carbon Dioxide Anion Gap BUN Creatinine Creat Clearance w eGFR Random Glucose Calcium Phosphorus Magnesium Erythropoietin Cancelled Total Bilirubin AST ALT Alkaline Phosphatase LD Total Creatine Kinase Troponin I < 0.02 Total Protein Albumin Triglycerides Cholesterol Total LDL Cholesterol HDL Cholesterol Vitamin B12 Serum Folate TSH Opiates Screen Methadone Screen Barbiturate Screen Phencyclidine Screen Ur Amphetamines Screen MDMA (Ecstasy) Screen Benzodiazepines Screen Cocaine Screen U Marijuana (THC) Screen 12/28/16 12/28/16 12/28/16 05:10 05:10 05:10 WBC 4.7 D RBC 4.60 Hgb 16.0 D Hct 47.2 D MCV 102.6 H MCH 34.7 H MCHC 33.8 RDW 14.3 Plt Count 169 D MPV 8.7 Neutrophils % Lymphocytes % Monocytes % Eosinophils % Basophils % PT with INR INR D-Dimer Sodium 142 Potassium 4.1 Chloride 109 H Carbon Dioxide 23 D Anion Gap 10 BUN 3 L D Creatinine 1.0 Creat Clearance w eGFR Random Glucose 83 D Calcium 7.7 L Phosphorus 3.3 Magnesium 1.7 L Erythropoietin Total Bilirubin AST ALT Alkaline Phosphatase LD Total 139 Creatine Kinase Troponin I Total Protein Albumin Triglycerides 61 Cholesterol 63 Total LDL Cholesterol 39 HDL Cholesterol 26 L Vitamin B12 Cancelled 224 Serum Folate Cancelled 40 H TSH Cancelled 1.67 D Opiates Screen Methadone Screen Barbiturate Screen Phencyclidine Screen Ur Amphetamines Screen MDMA (Ecstasy) Screen Benzodiazepines Screen Cocaine Screen U Marijuana (THC) Screen 12/28/16 06:20 WBC RBC Hgb Hct MCV MCH MCHC RDW Plt Count MPV Neutrophils % Lymphocytes % Monocytes % Eosinophils % Basophils % PT with INR INR D-Dimer Sodium Potassium Chloride Carbon Dioxide Anion Gap BUN Creatinine Creat Clearance w eGFR Random Glucose Calcium Phosphorus Magnesium Erythropoietin Total Bilirubin AST ALT Alkaline Phosphatase LD Total Creatine Kinase Troponin I Total Protein Albumin Triglycerides Cholesterol Total LDL Cholesterol HDL Cholesterol Vitamin B12 Serum Folate TSH Opiates Screen Negative Methadone Screen Negative Barbiturate Screen Negative Phencyclidine Screen Negative Ur Amphetamines Screen Negative MDMA (Ecstasy) Screen Negative Benzodiazepines Screen Positive Cocaine Screen Negative U Marijuana (THC) Screen Negative Active Medications Generic Name Dose Route Start Last Admin Trade Name Freq PRN Reason Stop Dose Admin Aspirin 81 mg 12/28/16 10:00 12/28/16 10:20 Asa - PO 81 mg DAILY VICKY Administration Chlordiazepoxide HCl 25 mg 12/27/16 19:06 Librium - PO Q4H PRN WITHDRAWAL(CONT SUBST) Chlordiazepoxide HCl 25 mg 12/27/16 22:00 12/27/16 22:44 Librium - PO 25 mg HS VICKY Administration Chlordiazepoxide HCl 25 mg 12/28/16 08:48 12/28/16 12:48 Librium - PO 12/28/16 17:01 25 mg [id number] VICKY Administration Chlordiazepoxide HCl 15 mg 12/29/16 05:00 Librium - PO 12/29/16 23:01 [id number] VICKY Enoxaparin Sodium 40 mg 12/28/16 10:00 12/28/16 10:19 Lovenox - SQ 40 mg DAILY VICKY Administration Sodium Chloride 1,000 mls @ 150 mls/hr 12/27/16 18:45 12/27/16 20:30 Normal Saline - IV 150 mls/hr ASDIR VICKY Administration Lisinopril 5 mg 12/28/16 08:00 12/28/16 10:20 Prinivil PO 5 mg DAILY VICKY Administration Thiamine HCl 100 mg 12/28/16 09:00 12/28/16 10:19 Vitamin B1 - PO 100 mg HS VICKY Administration ASSESSMENT/PLAN: Patient is a 41 year old male with a past medical history of alcohol abuse, hypertension and anxiety is admitted to the hospital for chest pain and polycythemia. #Polycythemia: unknown if a myeloproliferative disorder vs dehydration status -Hgb was initially 20, decreased to 16 with fluid resuscitation -vitamin B12/folate sent -Heme consult appreciated; likely will necessitate outpatient workup -EPO levels pending -CBC in AM Chest Pressure: Possible secondary to Polycythemia vs. anxiety -continue ASA 81mg daily -Troponins negative x3 -ECHO at PCP done one month ago was within normal limits, ECG performed 1 month ago showed mild L axis deviation and poor R wave progression and likely Q waves in III and AVF, similar to what we found on our ECG here Macrocytosis: likely 2/2 alcohol abuse -MCV increased to 102.6 -folate elevated at 40? May want to repeat -Likely secondary to alcohol abuse -Hematology on board -TSH normal Alcohol Dependence: -CIWA score of 2 -very mild tremulousness -Interested in inpatient rehab after discharge -Dr. Sullivan consult: can DC home if medically stable on librium taper detox: 25mg Q6 day 1, 25mg Q8 day 2, 25 mg Q12 day 3, 25mg once day 4, then stop. Patient has strong family support and is advised not to drive if sedated. Followup should be scheduled for intense outpatient care at [facility]. -Current Librium protocol: 25mg PO Q6h currently. HTN -Continue lisinopril 5mg PO QD HLD -No longer on medications as of last month from PCP Anxiety with underlying PTSD -Recommend patient see outpatient psychiatrist. F/E/N -No standing fluids -Electrolytes wnl -Regular diet Prophylaxis -High risk. Lovenox 40mg SQ daily for DVT. EAM -No GI required Disposition -Full code -Possible discharge today Visit type - Emergency Visit Emergency Visit: No - New Patient This patient is new to me today: Yes Date on this admission: 12/28/16 - Critical Care Critical Care patient: No
--- NOTE | 2016-12-28 16:19 | EKG ---
Test Reason : Blood Pressure : / mmHG Vent. Rate : 064 BPM Atrial Rate : 064 BPM P-R Int : 160 ms QRS Dur : 072 ms QT Int : 436 ms P-R-T Axes : 027 001 -04 degrees QTc Int : 449 ms NORMAL SINUS RHYTHM CANNOT RULE OUT INFERIOR INFARCT (CITED ON OR BEFORE 27-DEC-2016) ABNORMAL ECG WHEN COMPARED WITH ECG OF 27-DEC-2016 15:28, BORDERLINE CRITERIA FOR ANTERIOR INFARCT ARE NO LONGER PRESENT Confirmed by ANGEL MORALES MD ([id number]) on 12/28/2016 4:18:48 PM Referred By: Confirmed By:ANGEL MORALES MD
--- NOTE | 2016-12-28 16:50 | DS ---
Physical Exam: SEE MOST RECENT PROGRESS NOTE on 12/28/[address] Fitzpatrick for this discharge summary's history and physical exam. HOSPITAL COURSE: Date of Admission:12/27/16 41 year old male with a past medical history of chronic alcohol abuse, hypertension, anxiety and PTSD presented to the hospital with intermittent chest pressure for the last three days associated with shortness of breath and dizziness. Patient was found to have an abnormal ECG with Q waves and poor R- wave progression and a possible polycythemia with elevated hemoglobin and hematocrit. Patient was admitted to telemetry for possible acute coronary syndrome secondary to polycythemia/hyperviscosity and hypercoagulable state. Patient was given aspirin on admission. Patient's troponins on admission were negative. Patient was placed on a librium protocol for alcohol detoxification while in the hospital. He was treated with intravenous fluids and a consultation was placed for hematology, who recommended outpatient workup for proliferative disorders once medically stable for discharge. Over the next day, patient's hemoglobin decreased to normal levels only on intravenous fluid therapy. His chest pressure and tightness had resolved. He was found to have a macrocytosis, likely secondary to chronic alcohol abuse, and B12 level was normal. Folate level was found to be elevated. Thyroid function was normal. Patient was deemed safe to return home with strong family support while patient undergoes a librium taper for alcohol withdrawal. Patient was encouraged and was agreeable to attend an intensive outpatient alcohol detox/rehab center at [facility]. Patient was cleared medically and discharged home on with clear instructions for how to initiate librium taper at home and was instructed to follow with his primary care physician and hematology as an outpatient. Date of Discharge: 12/28/16 Minutes to complete discharge: 30 Discharge Summary Reason For Visit: ACUTE CORONARY SYNDROME Current Active Problems Acute coronary syndrome (Acute) Alcohol abuse (Acute) Alcohol dependence with uncomplicated withdrawal (Acute) Alcoholic hepatitis (Acute) Macrocytosis (Acute) Polycythemia (Acute) Condition: Stable - Instructions Diet, Activity, Other Instructions: You were admitted in the hospital for the treatment of chest pain and polycythemia. Medical Recommendations: Please take the librium protocol as follows to safely detox at home: Day 1: 25mg every 6 hours Day 2: 25mg every 8 hours Day 3: 25mg every 12 hours or twice a day Day 4: 25mg once that day Day 5: No librium While taking this medication, do not drive a car or operate heavy machinery Please take lisinopril 5mg by mouth once daily for your high blood pressure. Please make an appointment at [facility] outpatient detox facility at: [address] [place] [address] Please make an appointment with your psychiatrist within 1 month of discharge. Please make an appointment with your primary care physician, Dr. Pratt within 1 week of discharge. If you experience further chest pain, shortness of breath, severe abdominal pain , please return to the emergency room immediately. Referrals: Ronda Simpson MD [Staff Physician] - Disposition: HOME - Home Medications Comprehensive Discharge Medication List: Ambulatory Orders Chlordiazepoxide [Librium -] 25 mg PO Q4H PRN #10 capsule MDD 6 12/28/16 Lisinopril 5 mg PO DAILY #14 tablet 12/28/16 This patient is new to me today: Yes Date on this admission: 12/28/16 Emergency Visit: No Critical Care patient: No - Discharge Referral Referred to [facility] No
--- NOTE | 2016-12-28 18:33 | PN ---
Progress Note (short form) - Note Progress Note: Last Vital Signs Temp Pulse Resp BP Pulse Ox 98.6 F 60 14 121/88 98 12/28/16 14:00 12/28/16 14:00 12/28/16 09:00 12/28/16 14:00 12/28/16 09:00 Patient seen and examined Labs reviewed He feels better No therapeutic phlebotomy needed Being discharged today advised him to f/u in the office on 01/11 1000am
[2016-12-28 19:23] VITALS: BP 127/93; PULSE 62; TEMP 98
[2016-12-29] MEDS ORDERED: chlordiazePOXIDE 5 MG CAPSULE PO SCH (05:00)
== END 2016-12-28 17:57 | disposition home or self-care (01) | DRG 815 ==
LOC: JER 14:19 → JERBED 17:51 → J4W 20:58
PROVIDERS: ADMIT Internal Medicine; ATTEND Internal Medicine
PROC: HZ31ZZZ Individual Counseling for Substance Abuse Treatment, Behavioral (ICD-10-PCS; principal; 2016-12-28)
DX: D75.1 Secondary polycythemia (principal); F10.230 Alcohol dependence with withdrawal, uncomplicated; R07.9 Chest pain, unspecified; I10 Essential (primary) hypertension; E78.5 Hyperlipidemia, unspecified; F17.210 Nicotine dependence, cigarettes, uncomplicated; F43.10 Post-traumatic stress disorder, unspecified; D75.89 Other specified diseases of blood and blood-forming organs; R13.10 Dysphagia, unspecified; F41.9 Anxiety disorder, unspecified; K70.10 Alcoholic hepatitis without ascites; E83.42 Hypomagnesemia
CPT/HCPCS: 36415; 71020-TC; 76700-TC; 80048; 80053; 80061; 80307; 82550; 82607; 82668; 82746; 83615; 83721; 83735; 84100; 84443; 84484; 85025; 85027; 85379; 85610; 86704; 86706; 86708; 86803; 87340; 93005; 93010; 99285-25

== ENCOUNTER 2017-07-02 09:43 | Inpatient (IN) | payer OTHER ==
[2017-07-02 10:08] VITALS: BMI 26.6
--- NOTE | 2017-07-02 14:36 | HP ---
CIWA Score - CIWA Score Nausea/Vomitin-No Nausea/No Vomiting Muscle Tremors: 2 Anxiety: 4-Mod. Anxious/Guarded Agitation: 1-Slight > Activity Paroxysmal Sweats: 2 Orientation: 1-Uncertain about Date Tacttile Disturbances: 0-None Auditory Disturbances: 0-None Visual Disturbances: 0-None Headache: 2-Mild CIWA-Ar Total Score: 12 Admission ROS BHS - HPI Chief Complaint: ETOH withdrawal symptoms. Allergies/Adverse Reactions: Allergies Allergy/AdvReac Type Severity Reaction Status Date / Time No Known Allergies Allergy Verified 07/02/17 11:26 History of Present Illness: Patient presents with ETOH withdrawal symptoms. Patient started drinking as teenager socially. Began drinking heavily in his 20s. Drinks up to 70 ounces of beer daily. Last drink was yesterday at 7pm. Denies having seizures from ETOH use/withdrawal symptoms. Has PMH HTN, depression and anxiety. Denies SI/HI and suicide attempts. Exam Limitations: No Limitations - Ebola screening Have you traveled outside of the country in the last 21 days: No Have you had contact with anyone from an Ebola affected area: No Have you been sick,other than usual withdrawal symptoms: No Do you have a fever: No - Review of Systems Constitutional: Night Sweats, Changes in sleep, Unexplained wgt Loss EENT: reports: Recent change in vision Respiratory: reports: Shortness of Breath Cardiac: reports: No Symptoms Reported GI: reports: Diarrhea, Poor Fluid Intake, Abdominal cramping : reports: No Symptoms Reported Musculoskeletal: reports: No Symptoms Reported Integumentary: reports: Flushing, Sweating Neuro: reports: Headache, Tremors Endocrine: reports: Unexplained Weight Loss Hematology: reports: No Symptoms Reported Psychiatric: reports: Anxious, Depressed Patient History - Patient Medical History Hx Anemia: No Hx Asthma: No Hx Chronic Obstructive Pulmonary Disease (COPD): No Hx Cancer: No Hx Cardiac Disorders: No Hx Congestive Heart Failure: No Hx Hypertension: Yes (Recently prescribed Lisinopril) Hx Hypercholesterolemia: Yes (OFF MEDS) Hx Pacemaker: No HX Cerebrovascular Accident: No Hx Seizures: No Hx Dementia: No Hx Diabetes: No Hx Gastrointestinal Disorders: No Hx Liver Disease: No Hx Genitourinary Disorders: No Hx Sexually Transmitted Disorders: No Hx Renal Disease (ESRD): No Hx Thyroid Disease: No Hx Human Immunodeficiency Virus (HIV): No (Last test reported negative. Pt refused test today) Hx Hepatitis C: No Hx Depression: Yes Hx Suicide Attempt: No Hx Bipolar Disorder: No Hx Schizophrenia: No - Patient Surgical History Past Surgical History: Yes Hx Neurologic Surgery: No Hx Cataract Extraction: No Hx Cardiac Surgery: No Hx Lung Surgery: No Hx Breast Surgery: No Hx Breast Biopsy: No Hx Abdominal Surgery: No Hx Appendectomy: No Hx Cholecystectomy: No Hx Genitourinary Surgery: No Hx Orthopedic Surgery: Yes (fx, right arm at age 8) Anesthesia Reaction: No - PPD History Previous Implant?: Yes Documented Results: Negative w/o proof Implanted On Prior [facility] Admission?: No PPD to be Administered?: Yes - Smoking Cessation Smoking history: Current some day smoker Have you smoked in the past 12 months: No Aproximately how many cigarettes per day: 1 Hx Chewing Tobacco Use: No Initiated information on smoking cessation: No - Substance & Tx. History Hx Alcohol Use: Yes Hx Substance Use: No Substance Use Type: Alcohol Hx Substance Use Treatment: No - Substances Abused Alcohol-beer Route: Oral Frequency: Daily Amount used: 1-6 pk. Age of first use: 16 Date of Last Use: 07/01/17 Family Disease History - Family Disease History Family Disease History: Diabetes: Grandparent, [place]: Father, Other: Mother ( , substance abuse) Admission Physical Exam BHS - Vital Signs Vital Signs: Vital Signs - 24 hr 07/02/17 10:07 Temperature 97.3 F L Pulse Rate 73 Respiratory 18 Rate Blood Pressure 149/107 - Physical General Appearance: Yes: Appropriately Dressed, Tremorous, Sweating, Anxious HEENTM: Yes: EOMI, Hearing grossly Normal, Normocephalic, Normal Voice, SHERIE, Pharynx Normal Respiratory: Yes: Chest Non-Tender, Lungs Clear, Normal Breath Sounds, No Respiratory Distress, No Accessory Muscle Use Neck: Yes: Within Normal Limits, No masses,lesions,Nodules, Supple, Trachea in good position Breast: Yes: Breast Exam Deferred Cardiology: Yes: Regular Rhythm, Regular Rate, S1, S2 Abdominal: Yes: Normal Bowel Sounds, Non Tender, Soft Genitourinary: Yes: Within Normal Limits Back: Yes: Normal Inspection Musculoskeletal: Yes: full range of Motion, Gait Steady Extremities: Yes: Normal Inspection, Normal Range of Motion, Non-Tender, Tremors Neurological: Yes: 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-XII NML intact, Fully Oriented, Alert, Motor Strength 5/5, Depressed Affect Integumentary: Yes: Warm, Moist Lymphatic: Yes: Within Normal Limits - Diagnostic (1) Anxiety Current Visit: Yes Status: Acute (2) Depressed affect Current Visit: Yes Status: Acute (3) HTN (hypertension) Current Visit: Yes Status: Acute Qualifiers: Hypertension type: essential hypertension Qualified Code(s): I10 - Essential (primary) hypertension (4) Alcohol dependence with uncomplicated withdrawal Current Visit: Yes Status: Acute Cleared for Admission [facility] - Detox or Rehab [facility] Level of Care: Medically Managed Detox Regimen/Protocol: Librium [facility] Breath Alcohol Content Breath Alcohol Content: 0 Urine Drug Screen - Results Drug Screen Negative: Yes
[2017-07-02] MEDS ORDERED: MENTHOL/PHENOL 1 EACH UD MM PRN (14:47)
[2017-07-02] MEDS ORDERED: MAGNESIUM CITRATE 300 ML BOTTLE PO PRN (14:47)
[2017-07-02] MEDS ORDERED: hydrOXYzine PAMOATE 50 MG CAPSULE (FP) PO PRN (14:47)
[2017-07-02] MEDS ORDERED: ACETAMINOPHEN 325 MG TABLET (FP) PO PRN (14:47)
[2017-07-02] MEDS ORDERED: guaiFENesin/D-METHORPHAN HB 10 ML UNIT-DOSE CUPS PO PRN (14:47)
[2017-07-02] MEDS ORDERED: LOPERAMIDE HCL 2 MG CAPSULE PO PRN (14:47)
[2017-07-02] MEDS ORDERED: MAG HYDROX/AL HYDROX/SIMETH 30 ML UNIT-DOSE CUP PO PRN (14:47)
[2017-07-02] MEDS ORDERED: IBUPROFEN 400 MG TABLET (FP) PO PRN (14:47)
[2017-07-02] MEDS ORDERED: MAGNESIUM HYDROX 2400MG/30ML ORAL SUSPENSION 30 ML CUP PO PRN (14:47)
[2017-07-02] MEDS ORDERED: P-EPHED 60MG/TRIPROLIDI 2.5MG TABLET PO PRN (14:47)
[2017-07-02] MEDS ORDERED: chlordiazePOXIDE HCL 25 MG CAPSULE PO PRN (14:49)
[2017-07-02] MEDS ORDERED: chlordiazePOXIDE HCL 25 MG CAPSULE PO ONE (15:45)
--- NOTE | 2017-07-02 17:37 | PN ---
BHS Progress Note Note: Patient with asymptomatic elevated BP. BP 154/106 P104. One time order clonidine 0.1 mg increase fluids continue to monitor
[2017-07-02] MEDS: chlordiazePOXIDE HCL 25 MG CAPSULE PO SCH ×2 (17:40→22:18)
--- NOTE | 2017-07-02 17:59 | EKG ---
Test Reason : Blood Pressure : / mmHG Vent. Rate : 078 BPM Atrial Rate : 078 BPM P-R Int : 158 ms QRS Dur : 084 ms QT Int : 384 ms P-R-T Axes : 046 011 -04 degrees QTc Int : 437 ms NORMAL SINUS RHYTHM WITH SINUS ARRHYTHMIA NORMAL ECG WHEN COMPARED WITH ECG OF 28-DEC-2016 12:46, T WAVE VARIATION Confirmed by KEITH CROSS MD ([id number]) on 07/02/2017 5:58:44 PM Referred By: Confirmed By:KEITH CROSS MD
[2017-07-02] MEDS ORDERED: cloNIDine HCL 0.1 MG TABLET PO ONE (18:00)
[2017-07-02 21:02] LABS: URINE APPEARANCE CLEAR; URINE BILIRUBIN NEGATIVE (<2.0 mg/dL); URINE COLOR AMBER; URINE GLUCOSE (UA) NEGATIVE (NEGATIVE); URINE KETONE NEGATIVE (NEGATIVE); URINE LEUK ESTERASE NEGATIVE (NEGATIVE); URINE NITRITE NEGATIVE (NEGATIVE); URINE PROTEIN NEGATIVE (NEGATIVE)
[2017-07-02] MEDS ORDERED: MELATONIN 5 MG TABLETS PO PRN (22:00)
[2017-07-02] MEDS: THIAMINE HCL 100 MG TABLET (FP) PO SCH (22:18)
[2017-07-03] MEDS: chlordiazePOXIDE HCL 25 MG CAPSULE PO SCH ×4 (05:59→22:33)
[2017-07-03 10:17] LABS: HEMATOCRIT 45.8 % (35.4-49); MCHC 34.9 g/dl (32.0-35.9); MEAN CELL VOLUME 97.5 fl (80-96); MEAN PLT VOLUME 9.3 fl (7.5-11.1); PLATELET COUNT 251 K/MM3 (134-434); RDW 14.4 % (11.9-15.9); WHITE BLOOD COUNT 6.5 K/mm3 (4.0-10.0)
[2017-07-03 10:19] LABS: CHLORIDE 102 mmol/L (98-107); SODIUM 139 mmol/L (136-145)
[2017-07-03] MEDS: PRENATAL VITAMINS W/ FOLIC ACID TABLET (FP) PO SCH ×2 (10:36→11:15)
[2017-07-03] MEDS: LISINOPRIL 5 MG TABLET (FP) PO SCH (10:36)
[2017-07-03 11:19] LABS: ALK PHOS 77 U/L (45-117); ANION GAP 9 (8-16); BLOOD UREA NITROGEN 4 mg/dL (7-18); CALCIUM 9.1 mg/dL (8.5-10.1); CO2 28 mmol/L (21-32); CREATININE 1.1 mg/dL (0.7-1.3); GLUCOSE,RANDOM 105 mg/dL (74-106); SGOT/AST 63 U/L (15-37); SGPT/ALT 35 U/L (12-78); TOT PROT 7.7 g/dl (6.4-8.2)
--- NOTE | 2017-07-03 11:59 | PN ---
S CIWA - CIWA Score Nausea/Vomitin-No Nausea/No Vomiting Muscle Tremors: 4-Moderate,w/Arms Extend Anxiety: 4-Mod. Anxious/Guarded Agitation: 4-Moderately Restless Paroxysmal Sweats: 1-Minimal Palms Moist Orientation: 0-Oriented Tacttile Disturbances: 3-Moderate Itch/Numb/Burn Auditory Disturbances: 0-None Visual Disturbances: 0-None Headache: 0-None Present CIWA-Ar Total Score: 16 BHS Progress Note (SOAP) Subjective: SLIGHT ANXIETY, REPORTS DETOX MEDS EFFECTIVE. Objective: 07/03/17 11:58 Vital Signs 07/03/17 07/03/17 06:21 09:28 Temperature 96.2 F L 97.5 F L Pulse Rate 63 68 Respiratory 18 18 Rate Blood Pressure 113/71 128/84 Laboratory Tests 07/02/17 07/03/17 07/03/17 20:00 06:00 06:00 WBC 6.5 D RBC 4.70 Hgb 16.0 Hct 45.8 MCV 97.5 H MCH 34.0 H MCHC 34.9 RDW 14.4 Plt Count 251 D MPV 9.3 Sodium 139 Potassium 4.0 Chloride 102 Carbon Dioxide 28 D Anion Gap 9 BUN 4 L D Creatinine 1.1 Creat Clearance w eGFR > 60 Random Glucose 105 D Calcium 9.1 Total Bilirubin 2.0 H D AST 63 H D ALT 35 D Alkaline Phosphatase 77 D Total Protein 7.7 Albumin 4.0 Urine Color Jyoti Urine Appearance Clear Urine pH 7.0 Ur Specific [place] 1.019 Urine Protein Negative Urine Glucose (UA) Negative Urine Ketones Negative Urine Blood Negative Urine Nitrite Negative Urine Bilirubin Negative Urine Urobilinogen 2.0 Ur Leukocyte Esterase Negative RPR Titer 07/03/17 06:00 WBC RBC Hgb Hct MCV MCH MCHC RDW Plt Count MPV Sodium Potassium Chloride Carbon Dioxide Anion Gap BUN Creatinine Creat Clearance w eGFR Random Glucose Calcium Total Bilirubin AST ALT Alkaline Phosphatase Total Protein Albumin Urine Color Urine Appearance Urine pH Ur Specific [place] Urine Protein Urine Glucose (UA) Urine Ketones Urine Blood Urine Nitrite Urine Bilirubin Urine Urobilinogen Ur Leukocyte Esterase RPR Titer Nonreactive Assessment: 07/03/17 11:58 WITHDRAWAL SX Plan: CONTINUE DETOX
--- NOTE | 2017-07-03 19:35 | CONSULT ---
[facility] Psychiatric Consult - Data Date of interview: 07/03/17 Admission source: [facility] Identifying data: First admission to [facility] for this 41 y/o male seeking detox treatment on for alcohol dependence.Patient is witout children,domiciled and currently employed. Substance Abuse History: Confirmed by patient in this session.Details in current [facility] report.Smoking history: Current some day smoker. Have you smoked in the past 12 months: No. Aproximately how many cigarettes per day: 1. Hx Chewing Tobacco Use: No. Initiated information on smoking cessation: No. - Substance & Tx. History. Hx Alcohol Use: Yes. Hx Substance Use: No. Substance Use Type: Alcohol. Hx Substance Use Treatment: No. - Substances Abused. Alcohol-beer. Route: Oral. Frequency: Daily. Amount used: 1-6 pk. Age of first use: 16. Date of Last Use: 07/01/17 Medical History: Hypertension,dyslipidemia,gout and a distant history of fracture of right arm (childhood). Psychiatric History: Patient denies history of psychiatric hospitalizations or suicide attempts.Mr Robledo is already known to the [facility].Formerly followed by Dr Rose.Used to be prescribed buspar but he never took the drug out of fear of adverse effects.No reported history of drugs use ( negative toxicology on admission). Physical/Sexual Abuse/Trauma History: Patient denies. Additional Comment: Drug Screen is negative. Mental Status Exam - Mental Status Exam Alert and Oriented to: Time, Place, Person Cognitive Function: Good Patient Appearance: Well Groomed (short stature,neatly attired) Mood: Anxious (mildly anxious) Affect: Appropriate, Normal Range Patient Behavior: Fatigued, Appropriate, Cooperative Speech Pattern: Clear, Appropriate (malay-speaking) Voice Loudness: Normal Thought Process: Intact, Goal Oriented Thought Disorder: Not Present Hallucinations: Denies Suicidal Ideation: Denies Homicidal Ideation: Denies Insight/Judgement: Fair Sleep: Well Appetite: Good Muscle strength/Tone: Normal Gait/Station: Normal Psychiatric Findings - Problem List ([place] 1, 2,3) (1) Alcohol dependence with uncomplicated withdrawal Current Visit: Yes Status: Acute (2) Alcohol-induced anxiety disorder Current Visit: Yes Status: Suspected - Initial Treatment Plan Initial Treatment Plan: Psychoeducation.Detoxification in progress.Observation.
[2017-07-03] MEDS: THIAMINE HCL 100 MG TABLET (FP) PO SCH (22:33)
[2017-07-04] MEDS: chlordiazePOXIDE HCL 25 MG CAPSULE PO SCH (05:58)
[2017-07-04] MEDS: LISINOPRIL 5 MG TABLET (FP) PO SCH (10:09)
[2017-07-04] MEDS: PRENATAL VITAMINS W/ FOLIC ACID TABLET (FP) PO SCH (10:09)
[2017-07-04] MEDS: chlordiazePOXIDE 5 MG CAPSULE PO SCH ×3 (10:09→22:18)
--- NOTE | 2017-07-04 12:19 | PN ---
[facility] CIWA - CIWA Score Nausea/Vomitin-No Nausea/No Vomiting Muscle Tremors: 3 Anxiety: 5 Agitation: 4-Moderately Restless Paroxysmal Sweats: 1-Minimal Palms Moist Orientation: 0-Oriented Tacttile Disturbances: 0-None Auditory Disturbances: 0-None Visual Disturbances: 0-None Headache: 0-None Present CIWA-Ar Total Score: 13 S Progress Note (SOAP) Subjective: ANXIETY,SWEATS,LOW EMOTION--"I MISS MY AND FAMILY BUT I'M GLAD I'M HERE TO GET MYSELF BETTER". ENCOURAGED PT TO CONTINUE TO FOCUS ON HIS TREATMENT. Objective: ALERT O X 3. 07/04/17 12:17 Vital Signs 07/04/17 07/04/17 07/04/17 06:47 09:19 09:20 Temperature 96.1 F L 97.4 F L 97.4 F L Pulse Rate 94 H 66 66 Respiratory 16 18 18 Rate Blood Pressure 104/69 130/86 130/86 Laboratory Tests 07/02/17 07/03/17 07/03/17 20:00 06:00 06:00 WBC 6.5 D RBC 4.70 Hgb 16.0 Hct 45.8 MCV 97.5 H MCH 34.0 H MCHC 34.9 RDW 14.4 Plt Count 251 D MPV 9.3 Sodium 139 Potassium 4.0 Chloride 102 Carbon Dioxide 28 D Anion Gap 9 BUN 4 L D Creatinine 1.1 Creat Clearance w eGFR > 60 Random Glucose 105 D Calcium 9.1 Total Bilirubin 2.0 H D AST 63 H D ALT 35 D Alkaline Phosphatase 77 D Total Protein 7.7 Albumin 4.0 Urine Color Jyoti Urine Appearance Clear Urine pH 7.0 Ur Specific [place] 1.019 Urine Protein Negative Urine Glucose (UA) Negative Urine Ketones Negative Urine Blood Negative Urine Nitrite Negative Urine Bilirubin Negative Urine Urobilinogen 2.0 Ur Leukocyte Esterase Negative RPR Titer 07/03/17 06:00 WBC RBC Hgb Hct MCV MCH MCHC RDW Plt Count MPV Sodium Potassium Chloride Carbon Dioxide Anion Gap BUN Creatinine Creat Clearance w eGFR Random Glucose Calcium Total Bilirubin AST ALT Alkaline Phosphatase Total Protein Albumin Urine Color Urine Appearance Urine pH Ur Specific [place] Urine Protein Urine Glucose (UA) Urine Ketones Urine Blood Urine Nitrite Urine Bilirubin Urine Urobilinogen Ur Leukocyte Esterase RPR Titer Nonreactive Assessment: 05/23/18 12:17 WITHDRAWAL SX Plan: CONTINUE DETOX PT WILL COMPLETE IN AM AND PLANS TO F/U WITH AFTERCARE IN [facility].
[2017-07-04] MEDS ORDERED: chlordiazePOXIDE 5 MG CAPSULE PO SCH (17:00)
[2017-07-04] MEDS: THIAMINE HCL 100 MG TABLET (FP) PO SCH (22:18)
[2017-07-05] MEDS ORDERED: chlordiazePOXIDE HCL 10 MG CAPSULE PO SCH ×2 (05:00→17:00)
[2017-07-05 06:27] VITALS: BP 106/63; PULSE 72; TEMP 96.4
--- NOTE | 2017-07-05 16:24 | PN ---
BHS Progress Note (SOAP) Subjective: Patient denies current Detox symptoms and reports that he feels well overall. Objective: PATIENT A & O X 3, OBSERVED AMBULATING ON UNIT. NO ACUTE DISTRESS. 07/05/17 16:23 Vital Signs Temperature 96.4 F L 07/05/17 06:26 Pulse Rate 72 07/05/17 06:26 Respiratory Rate 18 07/05/17 06:26 Blood Pressure 106/63 07/05/17 06:26 O2 Sat by Pulse Oximetry (%) Laboratory Tests 07/02/17 07/03/17 07/03/17 20:00 06:00 06:00 WBC 6.5 D RBC 4.70 Hgb 16.0 Hct 45.8 MCV 97.5 H MCH 34.0 H MCHC 34.9 RDW 14.4 Plt Count 251 D MPV 9.3 Sodium 139 Potassium 4.0 Chloride 102 Carbon Dioxide 28 D Anion Gap 9 BUN 4 L D Creatinine 1.1 Creat Clearance w eGFR > 60 Random Glucose 105 D Calcium 9.1 Total Bilirubin 2.0 H D AST 63 H D ALT 35 D Alkaline Phosphatase 77 D Total Protein 7.7 Albumin 4.0 Urine Color Jyoti Urine Appearance Clear Urine pH 7.0 Ur Specific [place] 1.019 Urine Protein Negative Urine Glucose (UA) Negative Urine Ketones Negative Urine Blood Negative Urine Nitrite Negative Urine Bilirubin Negative Urine Urobilinogen 2.0 Ur Leukocyte Esterase Negative RPR Titer 07/03/17 06:00 WBC RBC Hgb Hct MCV MCH MCHC RDW Plt Count MPV Sodium Potassium Chloride Carbon Dioxide Anion Gap BUN Creatinine Creat Clearance w eGFR Random Glucose Calcium Total Bilirubin AST ALT Alkaline Phosphatase Total Protein Albumin Urine Color Urine Appearance Urine pH Ur Specific [place] Urine Protein Urine Glucose (UA) Urine Ketones Urine Blood Urine Nitrite Urine Bilirubin Urine Urobilinogen Ur Leukocyte Esterase RPR Titer Nonreactive LABS NOTED. Assessment: 07/05/17 16:23 COMPLETION OF DETOX REGIMEN. Plan: PATIENT SCHEDULED FOR DISCHARGE FROM DETOX UNIT TODAY.
--- NOTE | 2017-07-05 16:27 | DS ---
[facility] Detox Discharge Summary Admission Date: 07/02/17 Discharge Date: 07/05/17 - History Present History: Alcohol Dependence Additional Comments: PATIENT GOING TO [facility] ([facility]) FOR AFTERCARE. PATIENT WAS DISCHARGED FROM DETOX UNIT IN STABLE MEDICAL CONDITION. Pertinent Past History: HTN, Depression, Anxiety. - Physical Exam Results Vital Signs: Vital Signs Temperature 96.4 F L 07/05/17 06:26 Pulse Rate 72 07/05/17 06:26 Respiratory Rate 18 07/05/17 06:26 Blood Pressure 106/63 07/05/17 06:26 O2 Sat by Pulse Oximetry (%) Pertinent Admission Physical Exam Findings: WITHDRAWAL SYMPTOMS. Laboratory Tests 07/02/17 07/03/17 07/03/17 20:00 06:00 06:00 WBC 6.5 D RBC 4.70 Hgb 16.0 Hct 45.8 MCV 97.5 H MCH 34.0 H MCHC 34.9 RDW 14.4 Plt Count 251 D MPV 9.3 Sodium 139 Potassium 4.0 Chloride 102 Carbon Dioxide 28 D Anion Gap 9 BUN 4 L D Creatinine 1.1 Creat Clearance w eGFR > 60 Random Glucose 105 D Calcium 9.1 Total Bilirubin 2.0 H D AST 63 H D ALT 35 D Alkaline Phosphatase 77 D Total Protein 7.7 Albumin 4.0 Urine Color Jyoti Urine Appearance Clear Urine pH 7.0 Ur Specific [place] 1.019 Urine Protein Negative Urine Glucose (UA) Negative Urine Ketones Negative Urine Blood Negative Urine Nitrite Negative Urine Bilirubin Negative Urine Urobilinogen 2.0 Ur Leukocyte Esterase Negative RPR Titer 07/03/17 06:00 WBC RBC Hgb Hct MCV MCH MCHC RDW Plt Count MPV Sodium Potassium Chloride Carbon Dioxide Anion Gap BUN Creatinine Creat Clearance w eGFR Random Glucose Calcium Total Bilirubin AST ALT Alkaline Phosphatase Total Protein Albumin Urine Color Urine Appearance Urine pH Ur Specific [place] Urine Protein Urine Glucose (UA) Urine Ketones Urine Blood Urine Nitrite Urine Bilirubin Urine Urobilinogen Ur Leukocyte Esterase RPR Titer Nonreactive LABS NOTED. - Treatment Hospital Course: Detox Protocol Followed, Detoxed Safely, Responded well, Discharged Condition Good Patient has Accepted a Rehab Referral to: PT. GOING TO [facility] ([facility]). 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
== END 2017-07-05 08:45 | disposition home or self-care (01) | DRG 897 ==
LOC: YASAS 09:43 → Y3N 15:39
PROVIDERS: ADMIT Internal Medicine; ATTEND Internal Medicine
PROC: HZ2ZZZZ Detoxification Services for Substance Abuse Treatment (ICD-10-PCS; principal; 2017-07-02)
DX: F10.230 Alcohol dependence with withdrawal, uncomplicated (principal); F41.9 Anxiety disorder, unspecified; F32.9 Major depressive disorder, single episode, unspecified; F10.24 Alcohol dependence with alcohol-induced mood disorder; I10 Essential (primary) hypertension; R45.89 Other symptoms and signs involving emotional state
CPT/HCPCS: 36415; 80053; 81003; 85027; 86593; 93005; 93010; J0735

== ENCOUNTER 2017-12-17 09:48 | Inpatient (IN) | payer OTHER ==
[2017-12-17 10:49] VITALS: BMI 28.0
--- NOTE | 2017-12-17 11:13 | HP ---
CIWA Score - CIWA Score Nausea/Vomitin Muscle Tremors: 2 Anxiety: 2 Agitation: 2 Paroxysmal Sweats: 1-Minimal Palms Moist Orientation: 0-Oriented Tacttile Disturbances: 1-Very Mild Itch/Numbness Auditory Disturbances: 1-Very Mild Visual Disturbances: 1-Very Mild Sensitivity Headache: 2-Mild CIWA-Ar Total Score: 14 CIWA Score Nausea/Vomitin Muscle Tremors: 2 Anxiety: 2 Agitation: 2 Paroxysmal Sweats: 1-Minimal Palms Moist Orientation: 0-Oriented Tacttile Disturbances: 1-Very Mild Itch/Numbness Auditory Disturbances: 1-Very Mild Visual Disturbances: 1-Very Mild Sensitivity Headache: 2-Mild CIWA-Ar Total Score: 14 - Admission Criteria Patient presents the following: CIWA greater than 12 Admission Criteria Met: Admission criteria met Admission ROS BHS - HPI Chief Complaint: i need help to stop drinking from alcohol Allergies/Adverse Reactions: Allergies Allergy/AdvReac Type Severity Reaction Status Date / Time No Known Allergies Allergy Verified 07/02/17 11:26 History of Present Illness: this 42 years old male with alcohol dependence,seeking detox,withdrawal symptom, last detox 07/05/17 [facility] history of hypertension non compliance anxiety,depression,insomnia longest period of sobriety 4 months coughing for 4 days - Ebola screening Have you traveled outside of the country in the last 21 days: No Have you had contact with anyone from an Ebola affected area: No Have you been sick,other than usual withdrawal symptoms: No - Review of Systems Constitutional: Night Sweats, Weakness, Weight Stable, Unintentional Wgt. Loss, Unexplained wgt Loss EENT: reports: Nose Congestion Respiratory: reports: Cough Cardiac: reports: No Symptoms Reported GI: reports: Nausea, Poor Appetite, Abdominal cramping : reports: No Symptoms Reported Musculoskeletal: reports: Back Pain, Muscle Pain Integumentary: reports: Dryness Neuro: reports: Headache, Tremors Endocrine: reports: No Symptoms Reported Hematology: reports: No Symptoms Reported Psychiatric: reports: No Sypmtoms Reported, Judgement Intact, Mood/Affect Appropiate, Anxious, Depressed (insomnia) Patient History - Patient Medical History Hx Anemia: No Hx Asthma: No Hx Chronic Obstructive Pulmonary Disease (COPD): No Hx Cancer: No Hx Cardiac Disorders: No Hx Congestive Heart Failure: No Hx Hypertension: Yes (Recently prescribed Lisinopril non compliance) Hx Hypercholesterolemia: Yes (OFF MEDS) Hx Pacemaker: No HX Cerebrovascular Accident: No Hx Seizures: No Hx Dementia: No Hx Diabetes: No Hx Gastrointestinal Disorders: No Hx Liver Disease: No Hx Genitourinary Disorders: No Hx Sexually Transmitted Disorders: No Hx Renal Disease (ESRD): No Hx Thyroid Disease: No Hx Human Immunodeficiency Virus (HIV): No (Last test reported negative. Pt refused test today) Hx Hepatitis C: No Hx Depression: Yes Hx Suicide Attempt: No Hx Bipolar Disorder: No Hx Schizophrenia: No Other Medical History: anxiety,insomnia,coughing for 4 days - Patient Surgical History Past Surgical History: Yes Hx Neurologic Surgery: No Hx Cataract Extraction: No Hx Cardiac Surgery: No Hx Lung Surgery: No Hx Breast Surgery: No Hx Breast Biopsy: No Hx Abdominal Surgery: No Hx Appendectomy: No Hx Cholecystectomy: No Hx Genitourinary Surgery: No Hx Section: No Hx Orthopedic Surgery: Yes (fx, right arm at age 8) Anesthesia Reaction: No - PPD History Previous Implant?: Yes Implanted On Prior [facility] Admission?: Yes Date: 07/04/17 PPD to be Administered?: No - Smoking Cessation Smoking history: Current some day smoker Have you smoked in the past 12 months: No Aproximately how many cigarettes per day: 1 Hx Chewing Tobacco Use: No Initiated information on smoking cessation: Yes 'Breaking Loose' booklet given: 12/17/17 - Substance & Tx. History Hx Alcohol Use: Yes Hx Substance Use: No Substance Use Type: Alcohol Hx Substance Use Treatment: Yes ([facility] 07/02/17 to 07/05/17) - Substances Abused Alcohol Route: Oral Frequency: Daily Amount used: 7-8 BEERS 3-4 SHOTS VODKA Age of first use: 16 Date of Last Use: 12/16/17 Family Disease History - Family Disease History Family Disease History: Diabetes: Grandparent, [place]: Father (stomach,), Other: Mother (, substance abuse) Admission Physical Exam BHS - Vital Signs Vital Signs: Vital Signs - 24 hr 12/17/17 10:41 Temperature 97.7 F Pulse Rate 86 Respiratory 20 Rate Blood Pressure 154/112 H - Physical General Appearance: Yes: Moderate Distress, Tremorous, Irritable, Sweating, Anxious HEENTM: Yes: Normal ENT Inspection, SHERIE, Pharynx Normal Respiratory: Yes: Lungs Clear, Normal Breath Sounds, No Respiratory Distress Neck: Yes: Within Normal Limits, Supple, Trachea in good position Breast: Yes: Within Normal Limits Cardiology: Yes: Within Normal Limits, Regular Rhythm, Regular Rate, S1, S2 Abdominal: Yes: Within Normal Limits, Normal Bowel Sounds, Non Tender, Soft Genitourinary: Yes: Within Normal Limits Back: Yes: Muscle Spasm Musculoskeletal: Yes: full range of Motion, Back pain, Muscle Pain Extremities: Yes: Tremors Neurological: Yes: mileage clerk II-XII NML intact, Fully Oriented, Alert, Motor Strength 5/5 Integumentary: Yes: Dry Lymphatic: Yes: Within Normal Limits - Diagnostic (1) Alcohol dependence with uncomplicated withdrawal Current Visit: Yes Status: Acute (2) Essential hypertension Current Visit: Yes Status: Chronic (3) Insomnia secondary to depression with anxiety Current Visit: Yes Status: Chronic (4) Borderline diabetes mellitus Current Visit: Yes Status: Chronic Cleared for Admission S - Detox or Rehab [facility] Level of Care: Medically Managed Detox Regimen/Protocol: Librium S Breath Alcohol Content Breath Alcohol Content: 0 Urine Drug Screen - Results Drug Screen Negative: Yes
[2017-12-17] MEDS ORDERED: LOPERAMIDE HCL 2 MG CAPSULE PO PRN (11:38)
[2017-12-17] MEDS ORDERED: MAGNESIUM HYDROX 2400MG/30ML ORAL SUSPENSION 30 ML CUP PO PRN (11:38)
[2017-12-17] MEDS ORDERED: ACETAMINOPHEN 325 MG TABLET (FP) PO PRN (11:38)
[2017-12-17] MEDS ORDERED: MAG HYDROX/AL HYDROX/SIMETH 30 ML UNIT-DOSE CUP PO PRN (11:38)
[2017-12-17] MEDS ORDERED: MAGNESIUM CITRATE 300 ML BOTTLE PO PRN (11:38)
[2017-12-17] MEDS ORDERED: hydrOXYzine PAMOATE 50 MG CAPSULE (FP) PO PRN (11:38)
[2017-12-17] MEDS ORDERED: chlordiazePOXIDE HCL 25 MG CAPSULE PO PRN (11:38)
[2017-12-17] MEDS ORDERED: P-EPHED 60MG/TRIPROLIDI 2.5MG TABLET PO PRN (11:38)
[2017-12-17] MEDS ORDERED: MENTHOL/PHENOL 1 EACH UD MM PRN (11:38)
[2017-12-17] MEDS ORDERED: IBUPROFEN 400 MG TABLET (FP) PO PRN (11:38)
[2017-12-17] MEDS: LISINOPRIL 5 MG TABLET (FP) PO SCH (12:44)
[2017-12-17] MEDS: guaiFENesin/D-METHORPHAN HB 10 ML UNIT-DOSE CUPS PO PRN (13:13)
--- NOTE | 2017-12-17 14:17 | CONSULT ---
[facility] Psychiatric Consult - Data Date of interview: 12/17/17 Admission source: [facility] Identifying data: Readmission to [facility] for this 42 y/o male seeking detoxification treatment on for alcohol dependence. Patient is without children, domiciled and currently employed. Substance Abuse History: Discussed in this session. Patient reports onset of alcohol abuse around age 14-15. Drinks vodka daily (variable amounts). Smoking history: Current some day smoker. Have you smoked in the past 12 months: No. Aproximately how many cigarettes per day: 1. Hx Chewing Tobacco Use: No. Initiated information on smoking cessation: Yes. 'Breaking Loose' booklet given : 12/17/17. - Substance & Tx. History. Hx Alcohol Use: Yes. Hx Substance Use : No. Substance Use Type: Alcohol. Hx Substance Use Treatment: Yes ([facility] 07/02 to 07/05/17) Medical History: Medical co-morbidities : hypertension,dyslipidemia,gout and a distant history of fracture of right arm (childhood). Psychiatric History: Patient denies history of psychiatric hospitalizations or suicide attempts. Mr Robledo is known to the [employer] program in [facility] ( followed by Dr Rose). Has been diagnosed in the past with Anxiety Disorder and prescribed buspar. Admits to non-adherence. No reported history of drug use ( negative toxicology on admission). Physical/Sexual Abuse/Trauma History: Patient denies history of abuse. Additional Comment: Drug Screen is negative. Mental Status Exam - Mental Status Exam Alert and Oriented to: Time, Place, Person Cognitive Function: Good Patient Appearance: Well Groomed Mood: Nervous, Withdrawn, Anxious Affect: Mood Congruent, Constricted Patient Behavior: Fatigued, Cooperative Speech Pattern: Clear, Appropriate Voice Loudness: Normal Thought Process: Intact, Goal Oriented Thought Disorder: Not Present Hallucinations: Denies Suicidal Ideation: Denies Homicidal Ideation: Denies Insight/Judgement: Poor Sleep: Well Appetite: Good Muscle strength/Tone: Normal Gait/Station: Normal Psychiatric Findings - Problem List ([place] 1, 2,3) (1) Alcohol dependence with uncomplicated withdrawal Current Visit: Yes Status: Acute (2) Alcohol-induced mood disorder Current Visit: Yes Status: Acute - Initial Treatment Plan Initial Treatment Plan: Psychoeducation. Sleep hygiene. Detoxification in progress. Psychotherapy (group, individual, supportive). AA meetings. Relapse prevention discussed with the patient. Informed of FDA-approved pharmacotherapy for maintenance of sobriety (naltrexone, acamprosate in conjunction with counseling, 12 step doctrine and psychotherapy). Ambivalent about option of rehabilitation. Observation.
--- NOTE | 2017-12-17 14:39 | EKG ---
Test Reason : Blood Pressure : / mmHG Vent. Rate : 085 BPM Atrial Rate : 085 BPM P-R Int : 158 ms QRS Dur : 080 ms QT Int : 366 ms P-R-T Axes : 047 006 001 degrees QTc Int : 435 ms NORMAL SINUS RHYTHM NONSPECIFIC T WAVE ABNORMALITY ABNORMAL ECG WHEN COMPARED WITH ECG OF 02-JUL-2017 17:46, NO SIGNIFICANT CHANGE WAS FOUND Confirmed by KEITH CROSS MD ([id number]) on 12/17/2017 2:39:13 PM Referred By: Confirmed By:KEITH CROSS MD
[2017-12-17 17:46] LABS: URINE APPEARANCE CLEAR; URINE BILIRUBIN NEGATIVE (<2.0 mg/dL); URINE COLOR YELLOW; URINE GLUCOSE (UA) NEGATIVE (NEGATIVE); URINE KETONE NEGATIVE (NEGATIVE); URINE LEUK ESTERASE NEGATIVE (NEGATIVE); URINE NITRITE NEGATIVE (NEGATIVE); URINE PROTEIN NEGATIVE (NEGATIVE); URINE UROBILINOGEN NEGATIVE mg/dL (0.2-1.0)
[2017-12-17] MEDS: chlordiazePOXIDE HCL 25 MG CAPSULE PO SCH ×2 (17:47→22:23)
[2017-12-17] MEDS ORDERED: MELATONIN 5 MG TABLETS PO PRN (22:00)
[2017-12-17] MEDS: THIAMINE HCL 100 MG TABLET (FP) PO SCH (22:22)
[2017-12-18] MEDS: chlordiazePOXIDE HCL 25 MG CAPSULE PO SCH ×4 (06:18→22:51)
[2017-12-18] MEDS: PRENATAL VITAMINS W/ FOLIC ACID TABLET (FP) PO SCH (10:45)
[2017-12-18] MEDS: LISINOPRIL 5 MG TABLET (FP) PO SCH (10:45)
[2017-12-18 11:37] LABS: HEMATOCRIT 44.3 % (35.4-49); MCH 33.6 pg (25.7-33.7); MCHC 33.9 g/dl (32.0-35.9); MEAN CELL VOLUME 99.3 fl (80-96); MEAN PLT VOLUME 8.2 fl (7.5-11.1); PLATELET COUNT 214 K/MM3 (134-434); RBC 4.46 M/mm3 (4.00-5.60); RDW 16.5 % (11.9-15.9)
[2017-12-18 11:49] LABS: ALBUMIN 3.8 g/dl (3.4-5.0); ALK PHOS 84 U/L (45-117); ANION GAP 11 MMOL/L (8-16); BILIRUBIN,TOTAL 0.7 mg/dL (0.2-1); BLOOD UREA NITROGEN 3 mg/dL (7-18); CALCIUM 8.9 mg/dL (8.5-10.1); CHLORIDE 106 mmol/L (98-107); CO2 22 mmol/L (21-32); GLUCOSE,RANDOM 105 mg/dL (74-106); POTASSIUM 3.5 mmol/L (3.5-5.1); SGOT/AST 59 U/L (15-37); SGPT/ALT 35 U/L (13-61); SODIUM 139 mmol/L (136-145); TOT PROT 7.8 g/dl (6.4-8.2)
--- NOTE | 2017-12-18 15:40 | PN ---
S CIWA - CIWA Score Nausea/Vomitin Muscle Tremors: 4-Moderate,w/Arms Extend Anxiety: 4-Mod. Anxious/Guarded Agitation: 3 Paroxysmal Sweats: 3 Orientation: 0-Oriented Tacttile Disturbances: 0-None Auditory Disturbances: 0-None Visual Disturbances: 0-None Headache: 0-None Present CIWA-Ar Total Score: 16 S Progress Note (SOAP) Subjective: Sweating, anxious, interrupted sleep Objective: 12/18/17 15:36 Last Vital Signs Temp Pulse Resp BP Pulse Ox 97.0 F L 81 18 140/94 12/18/17 13:56 12/18/17 13:56 12/18/17 13:56 12/18/17 13:56 Laboratory Tests 12/17/17 12/18/17 12/18/17 16:00 06:00 06:00 WBC 6.0 RBC 4.46 Hgb 15.0 Hct 44.3 MCV 99.3 H MCH 33.6 MCHC 33.9 RDW 16.5 H Plt Count 214 D MPV 8.2 Sodium 139 Potassium 3.5 Chloride 106 Carbon Dioxide 22 Anion Gap 11 BUN 3 L Creatinine 1.0 Creat Clearance w eGFR > 60 Random Glucose 105 Calcium 8.9 Total Bilirubin 0.7 AST 59 H ALT 35 Alkaline Phosphatase 84 Total Protein 7.8 Albumin 3.8 Urine Color Yellow Urine Appearance Clear Urine pH 8.0 Ur Specific [place] 1.011 Urine Protein Negative Urine Glucose (UA) Negative Urine Ketones Negative Urine Blood Negative Urine Nitrite Negative Urine Bilirubin Negative Urine Urobilinogen Negative Ur Leukocyte Esterase Negative RPR Titer 12/18/17 06:00 WBC RBC Hgb Hct MCV MCH MCHC RDW Plt Count MPV Sodium Potassium Chloride Carbon Dioxide Anion Gap BUN Creatinine Creat Clearance w eGFR Random Glucose Calcium Total Bilirubin AST ALT Alkaline Phosphatase Total Protein Albumin Urine Color Urine Appearance Urine pH Ur Specific [place] Urine Protein Urine Glucose (UA) Urine Ketones Urine Blood Urine Nitrite Urine Bilirubin Urine Urobilinogen Ur Leukocyte Esterase RPR Titer Nonreactive Labs reviewed Assessment: 12/18/17 15:36 Withdrawal symptoms HTN: uncontrolled Plan: Continue detox Encouraged PO water intake HTN, uncontrolled: increase lisinopril to 10mg PO daily, give one time dose of lisinopril 5mg PO now
[2017-12-18] MEDS ORDERED: LISINOPRIL 5 MG TABLET (FP) PO ONE (16:45)
[2017-12-18] MEDS: THIAMINE HCL 100 MG TABLET (FP) PO SCH (22:51)
[2017-12-19] MEDS: chlordiazePOXIDE HCL 25 MG CAPSULE PO SCH ×2 (06:39→10:59)
[2017-12-19] MEDS: LISINOPRIL 10 MG TABLET (FP) PO SCH (09:58)
[2017-12-19] MEDS: PRENATAL VITAMINS W/ FOLIC ACID TABLET (FP) PO SCH (09:58)
[2017-12-19] MEDS: guaiFENesin/D-METHORPHAN HB 10 ML UNIT-DOSE CUPS PO PRN ×2 (09:58→17:10)
--- NOTE | 2017-12-19 15:43 | PN ---
S CIWA - CIWA Score Nausea/Vomitin Muscle Tremors: 3 Anxiety: 3 Agitation: 3 Paroxysmal Sweats: 3 Orientation: 0-Oriented Tacttile Disturbances: 0-None Auditory Disturbances: 0-None Visual Disturbances: 0-None Headache: 0-None Present CIWA-Ar Total Score: 14 S Progress Note (SOAP) Subjective: Anxious, sweating, chills, interrupted sleep Objective: 12/19/17 15:40 Last Vital Signs Temp Pulse Resp BP Pulse Ox 96.7 F L 77 148 H 121/79 12/19/17 13:52 12/19/17 13:52 12/19/17 13:52 12/19/17 13:52 resp: 18 Laboratory Tests 12/17/17 12/18/17 12/18/17 16:00 06:00 06:00 WBC 6.0 RBC 4.46 Hgb 15.0 Hct 44.3 MCV 99.3 H MCH 33.6 MCHC 33.9 RDW 16.5 H Plt Count 214 D MPV 8.2 Sodium 139 Potassium 3.5 Chloride 106 Carbon Dioxide 22 Anion Gap 11 BUN 3 L Creatinine 1.0 Creat Clearance w eGFR > 60 Random Glucose 105 Calcium 8.9 Total Bilirubin 0.7 AST 59 H ALT 35 Alkaline Phosphatase 84 Total Protein 7.8 Albumin 3.8 Urine Color Yellow Urine Appearance Clear Urine pH 8.0 Ur Specific [place] 1.011 Urine Protein Negative Urine Glucose (UA) Negative Urine Ketones Negative Urine Blood Negative Urine Nitrite Negative Urine Bilirubin Negative Urine Urobilinogen Negative Ur Leukocyte Esterase Negative RPR Titer 12/18/17 06:00 WBC RBC Hgb Hct MCV MCH MCHC RDW Plt Count MPV Sodium Potassium Chloride Carbon Dioxide Anion Gap BUN Creatinine Creat Clearance w eGFR Random Glucose Calcium Total Bilirubin AST ALT Alkaline Phosphatase Total Protein Albumin Urine Color Urine Appearance Urine pH Ur Specific [place] Urine Protein Urine Glucose (UA) Urine Ketones Urine Blood Urine Nitrite Urine Bilirubin Urine Urobilinogen Ur Leukocyte Esterase RPR Titer Nonreactive Labs reviewed Assessment: 12/19/17 15:42 Withdrawal symptoms Plan: Continue detox Encouraged PO water intake
[2017-12-19] MEDS: chlordiazePOXIDE 5 MG CAPSULE PO SCH ×2 (17:09→22:25)
[2017-12-19] MEDS: THIAMINE HCL 100 MG TABLET (FP) PO SCH (22:25)
[2017-12-20] MEDS: chlordiazePOXIDE 5 MG CAPSULE PO SCH ×2 (06:14→10:48)
[2017-12-20] MEDS: PRENATAL VITAMINS W/ FOLIC ACID TABLET (FP) PO SCH (10:48)
[2017-12-20] MEDS: LISINOPRIL 10 MG TABLET (FP) PO SCH (10:48)
--- NOTE | 2017-12-20 15:51 | PN ---
BHS Progress Note (SOAP) Subjective: Anxious Objective: 12/20/17 15:35 Last Vital Signs Temp Pulse Resp BP Pulse Ox 97.8 F 93 H 20 119/87 12/20/17 13:50 12/20/17 13:50 12/20/17 13:50 12/20/17 13:50 Laboratory Tests 12/17/17 12/18/17 12/18/17 16:00 06:00 06:00 WBC 6.0 RBC 4.46 Hgb 15.0 Hct 44.3 MCV 99.3 H MCH 33.6 MCHC 33.9 RDW 16.5 H Plt Count 214 D MPV 8.2 Sodium 139 Potassium 3.5 Chloride 106 Carbon Dioxide 22 Anion Gap 11 BUN 3 L Creatinine 1.0 Creat Clearance w eGFR > 60 Random Glucose 105 Calcium 8.9 Total Bilirubin 0.7 AST 59 H ALT 35 Alkaline Phosphatase 84 Total Protein 7.8 Albumin 3.8 Urine Color Yellow Urine Appearance Clear Urine pH 8.0 Ur Specific [place] 1.011 Urine Protein Negative Urine Glucose (UA) Negative Urine Ketones Negative Urine Blood Negative Urine Nitrite Negative Urine Bilirubin Negative Urine Urobilinogen Negative Ur Leukocyte Esterase Negative RPR Titer 12/18/17 06:00 WBC RBC Hgb Hct MCV MCH MCHC RDW Plt Count MPV Sodium Potassium Chloride Carbon Dioxide Anion Gap BUN Creatinine Creat Clearance w eGFR Random Glucose Calcium Total Bilirubin AST ALT Alkaline Phosphatase Total Protein Albumin Urine Color Urine Appearance Urine pH Ur Specific [place] Urine Protein Urine Glucose (UA) Urine Ketones Urine Blood Urine Nitrite Urine Bilirubin Urine Urobilinogen Ur Leukocyte Esterase RPR Titer Nonreactive Labs reviewed Assessment: 12/20/17 15:36 Withdrawal sxs Plan: Continue detox Encouraged PO water intake
[2017-12-20] MEDS: chlordiazePOXIDE HCL 10 MG CAPSULE PO SCH ×2 (17:42→22:34)
[2017-12-20] MEDS: THIAMINE HCL 100 MG TABLET (FP) PO SCH (22:34)
[2017-12-20] MEDS: guaiFENesin/D-METHORPHAN HB 10 ML UNIT-DOSE CUPS PO PRN (22:35)
[2017-12-21] MEDS: chlordiazePOXIDE HCL 10 MG CAPSULE PO SCH (05:30)
[2017-12-21 06:46] VITALS: BP 112/74; PULSE 81; TEMP 97
[2017-12-21] MEDS: LISINOPRIL 10 MG TABLET (FP) PO SCH (09:27)
[2017-12-21] MEDS: PRENATAL VITAMINS W/ FOLIC ACID TABLET (FP) PO SCH (09:27)
--- NOTE | 2017-12-21 12:06 | DS ---
[facility] Detox Discharge Summary Admission Date: 12/17/17 - History Present History: Alcohol Dependence Pertinent Past History: HTN Prediabetes HLD Depression Nicotine dependence - Physical Exam Results Vital Signs: Vital Signs Temperature 97 F L 12/21/17 06:45 Pulse Rate 81 12/21/17 06:45 Respiratory Rate 18 12/21/17 06:45 Blood Pressure 112/74 12/21/17 06:45 O2 Sat by Pulse Oximetry (%) Pertinent Admission Physical Exam Findings: Withdrawal sxs Laboratory Tests 12/17/17 12/18/17 12/18/17 16:00 06:00 06:00 WBC 6.0 RBC 4.46 Hgb 15.0 Hct 44.3 MCV 99.3 H MCH 33.6 MCHC 33.9 RDW 16.5 H Plt Count 214 D MPV 8.2 Sodium 139 Potassium 3.5 Chloride 106 Carbon Dioxide 22 Anion Gap 11 BUN 3 L Creatinine 1.0 Creat Clearance w eGFR > 60 Random Glucose 105 Calcium 8.9 Total Bilirubin 0.7 AST 59 H ALT 35 Alkaline Phosphatase 84 Total Protein 7.8 Albumin 3.8 Urine Color Yellow Urine Appearance Clear Urine pH 8.0 Ur Specific [place] 1.011 Urine Protein Negative Urine Glucose (UA) Negative Urine Ketones Negative Urine Blood Negative Urine Nitrite Negative Urine Bilirubin Negative Urine Urobilinogen Negative Ur Leukocyte Esterase Negative RPR Titer 12/18/17 06:00 WBC RBC Hgb Hct MCV MCH MCHC RDW Plt Count MPV Sodium Potassium Chloride Carbon Dioxide Anion Gap BUN Creatinine Creat Clearance w eGFR Random Glucose Calcium Total Bilirubin AST ALT Alkaline Phosphatase Total Protein Albumin Urine Color Urine Appearance Urine pH Ur Specific [place] Urine Protein Urine Glucose (UA) Urine Ketones Urine Blood Urine Nitrite Urine Bilirubin Urine Urobilinogen Ur Leukocyte Esterase RPR Titer Nonreactive Labs reviewed - Treatment Hospital Course: Detox Protocol Followed, Detoxed Safely, Responded well, Discharged Condition Good - Medication Discharge Medications: Ambulatory Orders Lisinopril [Zestril] 5 mg PO DAILY #30 tablet 07/05/17 - Diagnosis (1) Depression Status: Chronic (2) HLD (hyperlipidemia) Status: Chronic (3) Nicotine dependence Status: Chronic (4) Alcohol dependence with uncomplicated withdrawal Status: Acute (5) Borderline diabetes mellitus Status: Chronic (6) Essential hypertension Status: Chronic (7) Insomnia secondary to depression with anxiety Status: Chronic (8) Anxiety Status: Acute - AMA Did Patient Leave Against Medical Advice: No (F/U with your PCP within 1-2 weeks )
== END 2017-12-21 09:30 | disposition home or self-care (01) | DRG 897 ==
LOC: YASAS 09:48 → Y3N 11:40
PROC: HZ2ZZZZ Detoxification Services for Substance Abuse Treatment (ICD-10-PCS; principal; 2017-12-17)
DX: F10.230 Alcohol dependence with withdrawal, uncomplicated (principal); F17.210 Nicotine dependence, cigarettes, uncomplicated; F51.05 Insomnia due to other mental disorder; F10.24 Alcohol dependence with alcohol-induced mood disorder; F41.9 Anxiety disorder, unspecified; F32.9 Major depressive disorder, single episode, unspecified; I10 Essential (primary) hypertension; E78.5 Hyperlipidemia, unspecified; R73.03 Prediabetes; M10.9 Gout, unspecified; E78.00 Pure hypercholesterolemia, unspecified
CPT/HCPCS: 36415; 80053; 81003; 85027; 86593; 93005; 93010

== ENCOUNTER 2018-01-01 10:59 | Emergency (ER) | payer OTHER ==
[2018-01-01 11:19] VITALS: TEMP 97.8; BMI 27.2
[2018-01-01] MEDS ORDERED: SODIUM CHLORIDE 1,000 ML IV STA (12:24)
[2018-01-01] MEDS ORDERED: KETOROLAC TROMETHAMINE 30 MG/1 ML VIAL IVPUSH STA (12:24)
[2018-01-01] MEDS ORDERED: KETOROLAC TROMETHAMINE 30 MG/1 ML VIAL ONE (12:30)
[2018-01-01 12:50] LABS: EOS % 1.5 % (0-4.5); HEMATOCRIT 45.6 % (35.4-49); LYMPH % 31.7 % (8-40); MCH 32.4 pg (25.7-33.7); MCHC 32.9 g/dl (32.0-35.9); MEAN CELL VOLUME 98.5 fl (80-96); MEAN PLT VOLUME 8.4 fl (7.5-11.1); MONO % 8.3 % (3.8-10.2); NEUT % 56.5 % (42.8-82.8); PLATELET COUNT 351 K/MM3 (134-434); RBC 4.63 M/mm3 (4.00-5.60); RDW 15.4 % (11.9-15.9); WHITE BLOOD COUNT 5.7 K/mm3 (4.0-10.0)
--- NOTE | 2018-01-01 13:16 | PDOC ---
History of Present Illness - General Chief Complaint: Lightheaded Stated Complaint: DIZZINESS Time Seen by Provider: 01/01/18 11:38 History Source: Patient Exam Limitations: No Limitations - History of Present Illness Initial Comments: 01/01/18 14:44 22-year-old male with history of hypertension and EtOH abuse presents to ED with complaints of left neck pain associated with mild dizziness while walking today. Patient denies chest pain, shortness of breath, visual changes, abdominal pain, nausea, rash, or chills. Timing/Duration: 4-6 hours Severity: mild Associated Symptoms: reports: other Past History - Travel Traveled outside of the country in the last 30 days: No Close contact w/someone who was outside of country & ill: No - Past Medical History Allergies/Adverse Reactions: Allergies Allergy/AdvReac Type Severity Reaction Status Date / Time No Known Allergies Allergy Verified 07/02/17 11:26 Home Medications: Ambulatory Orders Lisinopril [Zestril] 5 mg PO DAILY #30 tablet 07/05/17 Anemia: No Asthma: No Cancer: No Cardiac Disorders: No CVA: No COPD: No CHF: No Dementia: No Diabetes: No GI Disorders: No Disorders: No HTN: Yes (Recently prescribed Lisinopril non compliance) Hypercholesterolemia: Yes (OFF MEDS) Kidney Stones: No Liver Disease: No Seizures: No Thyroid Disease: No - Surgical History Abdominal Surgery: No Appendectomy: No Cardiac Surgery: No Cholecystectomy: No Lung Surgery: No Neurologic Surgery: No Orthopedic Surgery: Yes (fx, right arm at age 8) - Family Disease History Family Disease History: Diabetes: Father, Heart Disease: Father - Reproductive History Testicular Surgery: No - Immunization History Immunization Up to Date: Yes - Suicide/Smoking/Psychosocial Hx Smoking History: Current some day smoker Have you smoked in the past 12 months: No Number of Cigarettes Smoked Daily: 1 Information on smoking cessation initiated: No 'Breaking Loose' booklet given: 12/17/17 Hx Alcohol Use: Yes Drug/Substance Use Hx: No Substance Use Type: Alcohol Hx Substance Use Treatment: Yes ([facility] 07/02/17 to 07/05/17) Patient Lives Alone: No Lives with/in: spouse/SO Review of Systems - Review of Systems Able to Perform ROS?: Yes Constitutional: No: Symptoms Reported HEENTM: No: Symptoms Reported Respiratory: No: Symptoms reported Cardiac (ROS): Yes: Lightheadedness ABD/GI: No: Symptoms Reported : No: Symptoms Reported Musculoskeletal: Yes: Neck Pain (left neck) Neurological: Yes: Dizziness. No: Headache, Weakness Endocrine: No: Symptoms Reported Hematologic/Lymphatic: No: Symptoms Reported *Physical Exam - Vital Signs Last Vital Signs Temp Pulse Resp BP Pulse Ox 97.8 F 78 18 147/92 99 01/01/18 11:10 01/01/18 11:10 01/01/18 11:10 01/01/18 11:10 01/01/18 11:10 - Physical Exam General Appearance: Yes: Nourished, Appropriately Dressed, Alcohol on Breath. No: Apparent Distress HEENT: positive: TMs Normal, Pharynx Normal. negative: Pale Conjunctivae Neck: positive: Tender (left trapezius), Supple Respiratory/Chest: positive: Lungs Clear, Normal Breath Sounds. negative: Respiratory Distress, Accessory Muscle Use Cardiovascular: positive: Regular Rhythm, Regular Rate. negative: Murmur Gastrointestinal/Abdominal: positive: Soft. negative: Tenderness Extremity: positive: Normal Capillary Refill. negative: Pedal Edema Integumentary: positive: Normal Color, Warm, Moist Neurologic: positive: Motor Strength 5/5 (ambulatory) ED Treatment Course - LABORATORY CBC & Chemistry Diagram: 01/01/18 12:38 01/01/18 12:38 - RADIOLOGY Radiology Studies Ordered: Category Date Time Status CHEST X-RAY PORTABLE* [RAD] Stat Radiology 01/01/18 12:23 Ordered Medical Decision Making - Medical Decision Making 01/01/18 15:00 A: Dizziness and left sided neck pain Exam: Left trapezius tenderness neuro no focal deficits alcohol on breath plan: head CT, Toradol, labs IV fluids 01/01/18 16:[address] shows no evidence of acute intracranial pathology. Patient states feeling better after receiving IV fluids. We'll discharge home to follow-up with his primary care physician. 01/01/18 17:00 Laboratory Tests 01/01/18 01/01/18 12:38 12:38 WBC 5.7 Hgb 15.0 Hct 45.6 Neutrophils % 56.5 Sodium 138 Potassium 4.1 Chloride 101 Carbon Dioxide 26 Anion Gap 11 BUN 4 L Creatinine 1.1 Random Glucose 107 H Calcium 9.0 Total Bilirubin 1.1 H AST 43 H ALT 43 Creatine Kinase 71 Troponin I < 0.02 *DC/Admit/Observation/Transfer Diagnosis at time of Disposition: Alcohol abuse, Dizziness - Discharge Dispostion Disposition: HOME Condition at time of disposition: Good - Referrals - Patient Instructions Printed Discharge Instructions: DI for Dizziness-Nonvertigo Additional Instructions: Derink plenty of fluids and abstain from alcohol use - Post Discharge Activity
[2018-01-01 13:21] LABS: ALBUMIN 3.5 g/dl (3.4-5.0); ALK PHOS 75 U/L (45-117); ANION GAP 11 MMOL/L (8-16); BILIRUBIN,TOTAL 1.1 mg/dL (0.2-1); BLOOD UREA NITROGEN 4 mg/dL (7-18); CHLORIDE 101 mmol/L (98-107); CO2 26 mmol/L (21-32); CREATININE 1.1 mg/dL (0.55-1.3); GLUCOSE,RANDOM 107 mg/dL (74-106); POTASSIUM 4.1 mmol/L (3.5-5.1); SGOT/AST 43 U/L (15-37); SGPT/ALT 43 U/L (13-61); SODIUM 138 mmol/L (136-145)
--- NOTE | 2018-01-01 15:30 | EKG ---
Test Reason : Blood Pressure : / mmHG Vent. Rate : 076 BPM Atrial Rate : 076 BPM P-R Int : 162 ms QRS Dur : 084 ms QT Int : 406 ms P-R-T Axes : 023 -01 -03 degrees QTc Int : 456 ms NORMAL SINUS RHYTHM POSSIBLE INFERIOR INFARCT , AGE UNDETERMINED POSSIBLE ANTERIOR INFARCT , AGE UNDETERMINED ABNORMAL ECG WHEN COMPARED WITH ECG OF 17-DEC-2017 13:22, NO SIGNIFICANT CHANGE WAS FOUND Confirmed by Leon Lorenzana MD ([id number]) on 01/01/2018 3:29:46 PM Referred By: Confirmed By:Leon Lorenzana MD
[2018-01-01 17:38] VITALS: BP 141/93; PULSE 90
== END 2018-01-01 17:38 | disposition home or self-care (01) ==
LOC: JER 10:59
PROC: 3E0333Z Introduction of Anti-inflammatory into Peripheral Vein, Percutaneous Approach (ICD-10-PCS; principal; 2018-01-01)
DX: F10.10 Alcohol abuse, uncomplicated (principal); R42 Dizziness and giddiness; I10 Essential (primary) hypertension
CPT/HCPCS: 36415; 70450-TC; 71045-TC-FY; 80053; 82550; 84484; 85025; 93005; 93010; 99282-25; J7030

== ENCOUNTER 2018-04-18 11:19 | Emergency (ER) | payer OTHER ==
[2018-04-18 11:33] VITALS: TEMP 98.5; BMI 60.5
--- NOTE | 2018-04-18 11:54 | PDOC ---
Attending Attestation - Resident Resident Name: Eduardo Guy - [facility] HPI: The patient is a 42 year old male, with a significant PMH of EtOH abuse (40oz of beer/day), hypertension, hyperlipidemia, who presents to the emergency department today complaining of increased shortness of breath for a few months. Patient notes he has been experiencing progressively worsening SOB with associated chest tightness, lightheadedness, and head pressure, and denies any alleviating or aggravating factors. Patient has seen his PCP for these symptoms, and his prior EKG and 02 studies were normal. Denies fever, chills, nausea, vomit, diarrhea and constipation. Denies dysuria, frequency, urgency and hematuria. Allergies: NKA Past surgical history: R arm fracture reduction Social history: EtOH abuse (40oz of beer a day) and occasional tobacco use PCP:Dr. Kimberlyn House (not on staff) 04/18/18 13:28 - Physicial Exam PE: GENERAL: Awake, alert, and fully oriented, in no acute distress HEAD: No signs of trauma EYES: PERRLA, EOMI, sclera anicteric, conjunctiva clear ENT: Auricles normal inspection, hearing grossly normal, nares patent, oropharynx clear without exudates. Moist mucosa NECK: Normal ROM, supple, no lymphadenopathy, JVD, or masses LUNGS: Breath sounds equal, clear to auscultation bilaterally. No wheezes, and no crackles HEART: Regular rate and rhythm, normal S1 and S2, no murmurs, rubs or gallops ABDOMEN: Soft, nontender, normoactive bowel sounds. No guarding, no rebound. No masses EXTREMITIES: Normal range of motion, no edema. No clubbing or cyanosis. No cords, erythema, or tenderness NEUROLOGICAL: Cranial nerves II through XII grossly intact. Normal speech, normal gait SKIN: Warm, Dry, normal turgor, no rashes or lesions noted. 04/18/18 13:28 - Medical Decision Making EXAM#: TYPE/EXAM: RESULT: [id number] RAD/CHEST X-RAY PORTABLE* Shortness of breath. . Impression. No evidence of active pulmonary disease. No pleural effusion, or pneumothorax is seen. Reported By: Young David MD 04/18/18 13:10 Documentation prepared by BURKE Antonio, acting as medical biller coder for Kristan Funez MD. 04/18/18 14:12 <Juana Gaming - Last Filed: 04/18/18 17:32> - Medical Decision Making 04/18/18 18:58 Pt presents to the ED complaining of several months of intermittent shortness of breath. EKG shows no evidence of ischemia or arrythmia. LAbs are within normal limits. HEART score is 0. PERC negative. Will discharge home with follow up with his PMD. <Kristan Funez - Last Filed: 04/18/18 18:59> Heart Score/ECG Review - ECG Intrepretation Rhythm: Regular Rhythm Comment:: Poor data quality, interpretation may be adversely affected. Normal sinus rhythm. Inferior infarct, age undetermined. Abnormal ECG 04/18/18 17:33 <Juana Gaming - Last Filed: 04/18/18 17:32>
--- NOTE | 2018-04-18 11:59 | PDOC ---
History of Present Illness - General Chief Complaint: Shortness of Breath Stated Complaint: S.O.B. Time Seen by Provider: 04/18/18 11:52 - History of Present Illness Initial Comments: 04/18/18 11:54 42 yo M with h/o HTN, Etoh abuse who p/w SOB, and chest tightness. Patient reports 1 day of diffuse chest pressure, and SOB, with no identifiable triggers or alleviators. Also endorses intermittent, spontaneous palpitations, with no triggers or alleviators. Has experienced palpitations in past with unremarkable stress test, and has reduced caffeine intake. Denies duoneb use, home O2 requirements. Denies recent travels. Patient denies vision change, cough, wheezing, orthopena, PND, leg swelling/pain , N/V, F,C, urinary complaints, hematuria, BPR, abdominal pain, diarrhea, constipation, lightheadedness, weakness, sensory changes. PMHx: as noted above. Denies h/o ACS/CT, PE/DVT ROS: as noted SHx: distant smoking/tobacco use. 40 oz Etoh per day. Denies IVDA. Allergies: NKDA Past History - Past Medical History Allergies/Adverse Reactions: Allergies Allergy/AdvReac Type Severity Reaction Status Date / Time No Known Allergies Allergy Verified 04/18/18 11:29 Home Medications: Ambulatory Orders Lisinopril [Zestril] 5 mg PO DAILY #30 tablet 07/05/17 Anemia: No Asthma: No Cancer: No Cardiac Disorders: No CVA: No COPD: No CHF: No Dementia: No Diabetes: No GI Disorders: No Disorders: No HTN: Yes (Recently prescribed Lisinopril non compliance) Hypercholesterolemia: Yes (OFF MEDS) Kidney Stones: No Liver Disease: No Seizures: No Thyroid Disease: No - Surgical History Abdominal Surgery: No Appendectomy: No Cardiac Surgery: No Cholecystectomy: No Lung Surgery: No Neurologic Surgery: No Orthopedic Surgery: Yes (fx, right arm at age 8) - Family Disease History Family Disease History: Diabetes: Father, Heart Disease: Father - Reproductive History Testicular Surgery: No - Immunization History Immunization Up to Date: Yes - Suicide/Smoking/Psychosocial Hx Smoking History: Never smoked Have you smoked in the past 12 months: No Number of Cigarettes Smoked Daily: 1 'Breaking Loose' booklet given: 12/17/17 Hx Alcohol Use: No Drug/Substance Use Hx: No Substance Use Type: Alcohol Hx Substance Use Treatment: Yes ([facility] 07/02/17 to 07/05/17) Review of Systems - Review of Systems Comments:: 04/18/18 11:58 GENERAL/CONSTITUTIONAL: No fever or chills. No weakness. HEAD, EYES, EARS, NOSE AND THROAT: No change in vision. No ear pain or discharge. No sore throat. CARDIOVASCULAR:+ chest pain andshortness of breath RESPIRATORY: No cough, wheezing, or hemoptysis. GASTROINTESTINAL: No nausea, vomiting, diarrhea or constipation. GENITOURINARY: No dysuria, frequency, or change in urination. MUSCULOSKELETAL: No joint or muscle swelling or pain. No neck or back pain. SKIN: No rash NEUROLOGIC: No headache, vertigo, loss of consciousness, or change in strength/ sensation. ENDOCRINE: No increased thirst. No abnormal weight change HEMATOLOGIC/LYMPHATIC: No anemia, easy bleeding, or history of blood clots. ALLERGIC/IMMUNOLOGIC: No hives or skin allergy. *Physical Exam - Vital Signs Last Vital Signs Temp Pulse Resp BP Pulse Ox 98.5 F 103 H 18 176/97 H 97 04/18/18 11:30 04/18/18 11:30 04/18/18 11:30 04/18/18 11:30 04/18/18 11:30 - Physical Exam Comments: 04/18/18 11:58 GENERAL: Awake, alert, and fully oriented, in no acute distress HEAD: No signs of trauma, normocephalic, atraumatic EYES: PERRLA, EOMI, sclera anicteric, conjunctiva clear ENT: Auricles normal inspection, hearing grossly normal, nares patent, oropharynx clear without exudates. Moist mucosa NECK: Normal ROM, supple, no lymphadenopathy, JVD, or masses LUNGS: No distress, speaks full sentences, clear to auscultation bilaterally HEART: Regular rate and rhythm, normal S1 and S2, no murmurs, rubs or gallops, peripheral pulses normal and equal bilaterally. ABDOMEN: Soft, nontender, normoactive bowel sounds. No guarding, no rebound. No masses EXTREMITIES : Normal inspection, Normal range of motion, no edema. No clubbing or cyanosis. NEUROLOGICAL: Cranial nerves II through XII grossly intact. Normal speech, normal gait, no focal sensorimotor deficits SKIN: Warm, Dry, normal turgor, no rashes or lesions noted Moderate Sedation - Procedure Monitoring Vital Signs: Procedure Monitoring Vital Signs Temperature 98.5 F 04/18/18 11:30 Pulse Rate 103 H 04/18/18 11:30 Respiratory Rate 18 04/18/18 11:30 Blood Pressure 176/97 H 04/18/18 11:30 O2 Sat by Pulse Oximetry (%) 97 04/18/18 11:30 ED Treatment Course - LABORATORY CBC & Chemistry Diagram: 04/18/18 14:00 04/18/18 14:00 Medical Decision Making - Medical Decision Making 04/18/18 12:15 42 yo M with h/o HTN, Etoh abuse who p/w SOB, palpitations, and chest tightness x 24 hours. Hr 103, BP 176/97, vitals otherwise wnl, AF, A&O3. Physical exam unremarkable. ACS/CT r/o. R/o PNA. Low risk PE Weils criteria. Will consider viral URI/Flu, asthma, COPD, gastritis, pleural effusion. ED Course: 04/18/18 13:35 CXR: Unremarkable 04/18/18 14:43 CBC,CMP: Unremarkable Trop: Neg Patient stable for d/c with return precautions Advised to f/u cardiology *DC/Admit/Observation/Transfer Diagnosis at time of Disposition: Palpitations - Discharge Dispostion Disposition: HOME Condition at time of disposition: Stable Decision to Admit order: No - Referrals Referrals: Kimberlyn House MD [Primary Care Provider] - Robert Marques MD [Staff Physician] - - Patient Instructions Printed Discharge Instructions: DI for Palpitations Additional Instructions: Please return to the emergency department with any new or worsening symptoms or concerns. Please follow up with your cardiology primary care physician within 72 hours. - Post Discharge Activity - Attestations Physician Attestion: 04/18/18 11:59 I attest to the information provided in this note.
[2018-04-18 14:18] LABS: BASO % 0.8 % (0-2.0); EOS % 0.3 % (0-4.5); HEMATOCRIT 47.5 % (35.4-49); HEMOGLOBIN 16.7 GM/dL (11.7-16.9); LYMPH % 22.3 % (8-40); MCHC 35.1 g/dl (32.0-35.9); MEAN CELL VOLUME 99.6 fl (80-96); MEAN PLT VOLUME 7.9 fl (7.5-11.1); MONO % 7.3 % (3.8-10.2); NEUT % 69.3 % (42.8-82.8); PLATELET COUNT 193 K/MM3 (134-434); RBC 4.77 M/mm3 (4.00-5.60); WHITE BLOOD COUNT 7.8 K/mm3 (4.0-10.0)
[2018-04-18 15:24] LABS: ALBUMIN 3.5 g/dl (3.4-5.0); ALK PHOS 80 U/L (45-117); ANION GAP 7 MMOL/L (8-16); BILIRUBIN,TOTAL 1.4 mg/dL (0.2-1); BLOOD UREA NITROGEN 4 mg/dL (7-18); CALCIUM 8.6 mg/dL (8.5-10.1); CHLORIDE 105 mmol/L (98-107); CO2 27 mmol/L (21-32); CREATININE 1.1 mg/dL (0.55-1.3); GLUCOSE,RANDOM 85 mg/dL (74-106); POTASSIUM 4.1 mmol/L (3.5-5.1); SGOT/AST 75 U/L (15-37); SGPT/ALT 42 U/L (13-61); SODIUM 138 mmol/L (136-145); TOT PROT 7.2 g/dl (6.4-8.2)
[2018-04-18 15:50] VITALS: BP 139/98; PULSE 88
--- NOTE | 2018-04-19 14:28 | EKG ---
Test Reason : Blood Pressure : / mmHG Vent. Rate : 072 BPM Atrial Rate : 072 BPM P-R Int : 154 ms QRS Dur : 074 ms QT Int : 396 ms P-R-T Axes : 026 -04 -19 degrees QTc Int : 433 ms POOR DATA QUALITY, INTERPRETATION MAY BE ADVERSELY AFFECTED NORMAL SINUS RHYTHM INFERIOR INFARCT (CITED ON OR BEFORE 01-JAN-2018) ABNORMAL ECG WHEN COMPARED WITH ECG OF 01-JAN-2018 12:41, NO SIGNIFICANT CHANGE WAS FOUND Confirmed by LARRY HOFFMAN MD ([id number]) on 04/19/2018 2:28:29 PM Referred By: Confirmed By:LARRY HOFFMAN MD
== END 2018-04-18 15:46 | disposition home or self-care (01) ==
LOC: JER 11:19 → SUPCPDRO 11:19 → JER 15:46
DX: R00.2 Palpitations (principal); I10 Essential (primary) hypertension; F10.10 Alcohol abuse, uncomplicated
CPT/HCPCS: 36415; 71045-TC-FY; 80053; 82550; 84484; 85025; 87804; 93005; 93010; 99282-25

== ENCOUNTER 2018-05-26 09:49 | Emergency (ER) | payer OTHER ==
[2018-05-26 09:53] VITALS: BMI 26.6
[2018-05-26] MEDS ORDERED: FOLIC ACID INJECTION - 1 MG, THIAMINE HCL 100 MG, MULTIVIT INJECTION ADULT 10 ML in SOD... IVPB ONE (10:33)
[2018-05-26] MEDS ORDERED: chlordiazePOXIDE HCL 25 MG CAPSULE PO ONE (10:33)
[2018-05-26] MEDS ORDERED: chlordiazePOXIDE HCL 25 MG CAPSULE ONE (10:37)
--- NOTE | 2018-05-26 10:54 | PDOC ---
History of Present Illness - General Chief Complaint: Palpitations Stated Complaint: LIGHTHEADED Time Seen by Provider: 05/26/18 10:15 - History of Present Illness Initial Comments: 05/26/18 10:40 42 M with h/o HTN, HLD, ETOH abuse presents to ED with lightheadedness and anxiety. Pt states that his symptoms began this morning. He admits to drinking heavily every day, approx 60 oz of beer in addition to liquor. Pt states his last drink was this morning. Pt endorses feeling very foggy. He also notes that he feels extremely anxious and shaky. Denies any h/o withdrawal. Denies seizures. Pt denies CP/SOB. Endorses heart racing sensation. Denies leg swelling. Denies abdominal pain/N/V/D. Past History - Past Medical History Allergies/Adverse Reactions: Allergies Allergy/AdvReac Type Severity Reaction Status Date / Time No Known Allergies Allergy Verified 05/26/18 09:53 Home Medications: Ambulatory Orders Lisinopril [Zestril] 5 mg PO DAILY #30 tablet 07/05/17 Anemia: No Asthma: No Cancer: No Cardiac Disorders: No CVA: No COPD: No CHF: No Dementia: No Diabetes: No GI Disorders: No Disorders: No HTN: Yes (Recently prescribed Lisinopril non compliance) Hypercholesterolemia: Yes (OFF MEDS) Kidney Stones: No Liver Disease: No Psychiatric Problems: Yes (anxiety) Seizures: No Thyroid Disease: No - Surgical History Abdominal Surgery: No Appendectomy: No Cardiac Surgery: No Cholecystectomy: No Lung Surgery: No Neurologic Surgery: No Orthopedic Surgery: Yes (fx, right arm at age 8) - Family Disease History Family Disease History: Diabetes: Father, Heart Disease: Father - Reproductive History Testicular Surgery: No - Immunization History Immunization Up to Date: Yes - Suicide/Smoking/Psychosocial Hx Smoking History: Never smoked Have you smoked in the past 12 months: No Number of Cigarettes Smoked Daily: 1 'Breaking Loose' booklet given: 12/17/17 Hx Alcohol Use: No Drug/Substance Use Hx: No Substance Use Type: Alcohol Hx Substance Use Treatment: Yes ([facility] 07/02/17 to 07/05/17) Review of Systems - Review of Systems Comments:: 05/26/18 10:54 GENERAL/CONSTITUTIONAL: No fever or chills. No weakness. HEAD, EYES, EARS, NOSE AND THROAT: No change in vision. No ear pain or discharge. No sore throat. CARDIOVASCULAR: + lightheaded, + palpitations, No chest pain, no shortness of breath, no loss of consciousness RESPIRATORY: No cough, wheezing, or hemoptysis. GASTROINTESTINAL: No nausea, vomiting, diarrhea or constipation. GENITOURINARY: No dysuria, frequency, or change in urination. MUSCULOSKELETAL: No joint or muscle swelling or pain. No neck or back pain. SKIN: No rash NEUROLOGIC: No vertigo, no change in strength/sensation. ENDOCRINE: No increased thirst. No abnormal weight change. HEMATOLOGIC/LYMPHATIC: No anemia, easy bleeding, or history of blood clots. ALLERGIC/IMMUNOLOGIC: No hives or skin allergy. *Physical Exam - Vital Signs Last Vital Signs Temp Pulse Resp BP Pulse Ox 98 F 95 H 17 145/94 99 05/26/18 09:51 05/26/18 10:21 05/26/18 10:21 05/26/18 10:21 05/26/18 10:21 - Physical Exam Comments: 05/26/18 10:54 "GENERAL: Awake, alert, and fully oriented, in no acute distress. HEAD: No signs of trauma EYES: PERRLA, EOMI, sclera anicteric, conjunctiva clear ENT: Auricles normal inspection, hearing grossly normal, nares patent, oropharynx clear without exudates. Moist mucosa NECK: Nontender, no stepoffs, Normal ROM, supple, no lymphadenopathy, JVD, or masses LUNGS: Breath sounds equal, clear to auscultation bilaterally. No wheezes, and no crackles HEART: Regular rate and rhythm, normal S1 and S2, no murmurs, rubs or gallops ABDOMEN: Soft, nontender, normoactive bowel sounds. No guarding, no rebound. No masses EXTREMITIES: Normal range of motion, no edema. No clubbing or cyanosis. No cords, erythema, or tenderness NEUROLOGICAL: + tremors, Cranial nerves II through XII intact. 5/5 strength and sensation in all extremities, Normal speech, normal gait, normal cerebellar function SKIN: Warm, Dry, normal turgor, no rashes or lesions noted. ED Treatment Course - LABORATORY CBC & Chemistry Diagram: 05/26/18 10:25 05/26/18 10:25 - RADIOLOGY Radiology Studies Ordered: Category Date Time Status CHEST X-RAY PORTABLE* [RAD] Stat Radiology 05/26/18 10:32 Ordered Medical Decision Making - Medical Decision Making 05/26/18 10:54 42 M with lightheadedness and anxiety after drinking heavily last night. Pt is tremulous on exam, suspect ETOH withdrawal. EKG with NSR, no evidence of arrhythmia. - Labs - IVF, banana bag, librium 05/26/18 13:39 Labs notable for Hb 18 Pt states that he has had similar elevated Hbs in the past. Has seen a intervention specialist, who cleared him. Pt reassessed - now has complete resolution of his symptoms. Pt offered detox, states that he would like to go to [facility] tomorrow. He plans to take himself there. Pt is well appearing, with normal vitals. Clinically stable for DC at this time. I discussed the physical exam findings, ancillary test results and final diagnoses with the patient. I answered all of the patient's questions. The patient was satisfied with the care received and felt comfortable with the discharge plan and treatment plan. The patient agrees to follow up with the primary care physician within 24-72 hours. *DC/Admit/Observation/Transfer Diagnosis at time of Disposition: Palpitations - Discharge Dispostion Disposition: HOME - Referrals - Patient Instructions Printed Discharge Instructions: DI for Alcohol Abuse Additional Instructions: Drink plenty of fluids to stay hydrated. Please go to [facility] detox center when you are ready. If you experience any worsening palpitations, anxiety, chest pain, shortness of breath, or any other concerning symptoms, return to the ER immediately. - Post Discharge Activity - Attestations Physician Attestion: 05/26/18 13:43 I, Dr. Herbert Guerrero MD, attest that this document has been prepared under my direction and personally reviewed by me in its entirety. I further attest, that it accurately reflects all work, treatment, procedures and medical decision -making performed by me.
[2018-05-26 11:20] LABS: BASO % 1.1 % (0-2.0); EOS % 2.2 % (0-4.5); HEMATOCRIT 52.8 % (35.4-49); HEMOGLOBIN 18.3 GM/dL (11.7-16.9); MCH 35.5 pg (25.7-33.7); MCHC 34.6 g/dl (32.0-35.9); MEAN CELL VOLUME 102.6 fl (80-96); MEAN PLT VOLUME 8.1 fl (7.5-11.1); MONO % 10.7 % (3.8-10.2); PLATELET COUNT 205 K/MM3 (134-434); RBC 5.15 M/mm3 (4.00-5.60); RDW 17.6 % (11.9-15.9); WHITE BLOOD COUNT 4.7 K/mm3 (4.0-10.0)
[2018-05-26] MEDS ORDERED: SODIUM CHLORIDE 1,000 ML IV STA (11:41)
[2018-05-26 11:51] LABS: ALBUMIN 3.6 g/dl (3.4-5.0); ALK PHOS 90 U/L (45-117); ANION GAP 12 MMOL/L (8-16); BILIRUBIN,TOTAL 1.2 mg/dL (0.2-1); BLOOD UREA NITROGEN 4 mg/dL (7-18); CALCIUM 8.8 mg/dL (8.5-10.1); CHLORIDE 101 mmol/L (98-107); CO2 22 mmol/L (21-32); CREATININE 1.1 mg/dL (0.55-1.3); GLUCOSE,RANDOM 111 mg/dL (74-106); LIPASE 75 U/L (73-393); POTASSIUM 4.2 mmol/L (3.5-5.1); SGOT/AST 96 U/L (15-37); SGPT/ALT 54 U/L (13-61); SODIUM 135 mmol/L (136-145); TOT PROT 7.6 g/dl (6.4-8.2)
[2018-05-26 14:39] VITALS: BP 152/100; PULSE 80; TEMP 98
--- NOTE | 2018-05-27 10:32 | EKG ---
Test Reason : Blood Pressure : / mmHG Vent. Rate : 091 BPM Atrial Rate : 091 BPM P-R Int : 158 ms QRS Dur : 074 ms QT Int : 378 ms P-R-T Axes : 041 -07 003 degrees QTc Int : 464 ms NORMAL SINUS RHYTHM INFERIOR INFARCT (CITED ON OR BEFORE 01-JAN-2018) ANTERIOR INFARCT , AGE UNDETERMINED ABNORMAL ECG WHEN COMPARED WITH ECG OF 18-APR-2018 11:27, ANTERIOR INFARCT IS NOW PRESENT NONSPECIFIC T WAVE ABNORMALITY NOW EVIDENT IN ANTERIOR LEADS Confirmed by ANGEL MORALES MD ([id number]) on 05/27/2018 10:31:42 AM Referred By: Confirmed By:ANGEL MORALES MD
== END 2018-05-26 14:38 | disposition home or self-care (01) ==
LOC: JER 09:49
PROC: 3E033GC Introduction of Other Therapeutic Substance into Peripheral Vein, Percutaneous Approach (ICD-10-PCS; principal; 2018-05-26)
DX: R00.2 Palpitations (principal); I10 Essential (primary) hypertension; E78.5 Hyperlipidemia, unspecified; F10.10 Alcohol abuse, uncomplicated; Y90.9 Presence of alcohol in blood, level not specified
CPT/HCPCS: 36415; 71045-TC-FY; 80053; 82550; 83690; 84484; 85025; 93005; 93010; 99284-25; J7030

== ENCOUNTER 2018-06-03 12:32 | Inpatient (IN) | payer OTHER ==
[2018-06-03 18:14] VITALS: BMI 27.7
--- NOTE | 2018-06-03 19:26 | HP ---
CIWA Score Nausea/Vomitin-No Nausea/No Vomiting Muscle Tremors: 2 Anxiety: 3 Agitation: 0-Normal Activity Paroxysmal Sweats: 1-Minimal Palms Moist Orientation: 0-Oriented Tacttile Disturbances: 2-Mild Itch/Numbness/Burn Auditory Disturbances: 0-None Visual Disturbances: 2-Mild Sensitivity Headache: 0-None Present CIWA-Ar Total Score: 10 - Admission Criteria OAS Guidelines: Admission for Medically Managed Detox: Requires at least one of the followin. CIWA greater than 12 2. Seizures within the past 24 hours 3. Delirium tremens within the past 24 hours 4. Hallucinations within the past 24 hours 5. Acute intervention needed for co occurring medical disorder 6. Acute intervention needed for co occurring psychiatric disorder 7. Severe withdrawal that cannot be handled at a lower level of care (continued vomiting, continued diarrhea, abnormal vital signs) requiring intravenous medication and/or fluids 8. Patient presents the following: Acute intervention needed for co-occurring med or psych disorder Admission Criteria Met: Admission criteria met Admission ROS [facility] Chief Complaint: " alcohol detox" Allergies/Adverse Reactions: Allergies Allergy/AdvReac Type Severity Reaction Status Date / Time No Known Allergies Allergy Verified 06/03/18 19:43 History of Present Illness: Patient is a 42 years old male with alcohol dependence is here seeking detox d/ t withdrawal symptom. Last detox [facility] 12/17/17 -12/21/17. Patient reports was evaluated at [facility] 05/26/18 for alcohol and was referred to detox. PMHX : HTN (non-compliant), Psych: anxiety, depression, insomnia (no treatment. longest period of sobriety 4 months Denies hx of seizures or blackouts. Exam Limitations: No Limitations - Ebola screening Have you traveled outside of the country in the last 21 days: No Have you had contact with anyone from an Ebola affected area: No - Review of Systems Constitutional: Changes in sleep, Unintentional Wgt. Loss, Other (i felt nervous and I had a few drinks to calm my nerves) EENT: reports: No Symptoms Reported Respiratory: reports: Other (SOB when anxious) Cardiac: reports: Lightheadedness GI: reports: Poor Appetite, Indigestion : reports: No Symptoms Reported Musculoskeletal: reports: No Symptoms Reported Integumentary: reports: Dryness Neuro: reports: No Symptoms reported Endocrine: reports: No Symptoms Reported Hematology: reports: No Symptoms Reported Psychiatric: reports: Orientated x3, Anxious Other Systems: Reviewed and Negative Patient History - Patient Medical History Hx Anemia: No Hx Asthma: No Hx Chronic Obstructive Pulmonary Disease (COPD): No Hx Cancer: No Hx Cardiac Disorders: No Hx Congestive Heart Failure: No Hx Hypertension: Yes (Recently prescribed Lisinopril non compliance) Hx Hypercholesterolemia: Yes (OFF MEDS) Hx Pacemaker: No HX Cerebrovascular Accident: No Hx Seizures: No Hx Dementia: No Hx Diabetes: No Hx Gastrointestinal Disorders: No Hx Liver Disease: No Hx Genitourinary Disorders: No Hx Sexually Transmitted Disorders: No Hx Renal Disease (ESRD): No Hx Thyroid Disease: No Hx Human Immunodeficiency Virus (HIV): No (Last test reported negative. Pt refused test today) Hx Hepatitis C: No Hx Depression: Yes Hx Suicide Attempt: No Hx Bipolar Disorder: No Hx Schizophrenia: No - Patient Surgical History Past Surgical History: Yes Hx Neurologic Surgery: No Hx Cataract Extraction: No Hx Cardiac Surgery: No Hx Lung Surgery: No Hx Breast Surgery: No Hx Breast Biopsy: No Hx Abdominal Surgery: No Hx Appendectomy: No Hx Cholecystectomy: No Hx Genitourinary Surgery: No Hx Section: No Hx Orthopedic Surgery: Yes (fx, right arm at age 8) Anesthesia Reaction: No - PPD History Previous Implant?: No Documented Results: Negative w/proof Date: 07/04/17 Results: 0 MM PPD to be Administered?: No - Smoking Cessation Smoking history: Current some day smoker Have you smoked in the past 12 months: No Aproximately how many cigarettes per day: 1 Hx Chewing Tobacco Use: No Initiated information on smoking cessation: Yes 'Breaking Loose' booklet given: 06/03/18 - Substance & Tx. History Hx Alcohol Use: Yes Hx Substance Use: Yes Substance Use Type: Alcohol Hx Substance Use Treatment: Yes ([facility] detox 12/17/17 -12/21/17) - Substances abused Alcohol Substance route: Oral Frequency: Daily Amount used: 60 OZ BEER + 1 or 2 nips Age of first use: 17 Date of last use: 06/03/18 Family Disease History - Family Disease History Family Disease History: Diabetes: Grandparent, CA: Father (stomach,), Other: Mother (, substance abuse) Admission Physical Exam S - Vital Signs Vital Signs: Vital Signs - 24 hr 06/03/18 18:08 Temperature 97.1 F L Pulse Rate 83 Respiratory 18 Rate Blood Pressure 143/104 H - Physical General Appearance: Yes: Appropriately Dressed, Sweating, Anxious HEENTM: Yes: EOMI, Hearing grossly Normal, Normal ENT Inspection, Normocephalic , Normal Voice, SHERIE, Pharynx Normal, Tm's normal Respiratory: Yes: Chest Non-Tender, Lungs Clear, Normal Breath Sounds, No Respiratory Distress, No Accessory Muscle Use Neck: Yes: Within Normal Limits Breast: Yes: Breast Exam Deferred Cardiology: Yes: Regular Rhythm, Regular Rate Abdominal: Yes: Within Normal Limits Genitourinary: Yes: Within Normal Limits Back: Yes: Normal Inspection Musculoskeletal: Yes: full range of Motion, Gait Steady, Pelvis Stable Extremities: Yes: Normal Capillary Refill, Normal Inspection, Normal Range of Motion, Non-Tender Neurological: Yes: coke burner II-XII NML intact, Fully Oriented, Alert, Motor Strength 5/5, Normal Response, Depressed Affect Integumentary: Yes: Normal Color, Dry, Warm Lymphatic: Yes: Within Normal Limits - Diagnostic (1) Alcohol dependence with uncomplicated withdrawal Current Visit: Yes Status: Acute (2) Dizziness Current Visit: Yes Status: Acute (3) HLD (hyperlipidemia) Current Visit: Yes Status: Chronic (4) HTN (hypertension) Current Visit: Yes Status: Chronic Qualifiers: Hypertension type: essential hypertension Qualified Code(s): I10 - Essential (primary) hypertension Cleared for Admission S - Detox or Rehab [facility] Level of Care: Medically Managed Detox Regimen/Protocol: Librium Breathalyzer - Breathalyzer Breathalyzer: 0 Urine Drug Screen - Test Device Lot number: [id number] Expiration date: 05/12/19 - Control Is test valid?: Yes - Results Drug screen NEGATIVE: No Urine drug screen results: BZO-Benzodiazepines Inpatient Rehab Admission - Rehab Decision to Admit Inpatient rehab admission?: No
[2018-06-03] MEDS ORDERED: hydrOXYzine PAMOATE 25 MG CAPSULE (FP) PO PRN (19:34)
[2018-06-03] MEDS ORDERED: MAGNESIUM CITRATE 300 ML BOTTLE PO PRN (19:34)
[2018-06-03] MEDS ORDERED: IBUPROFEN 400 MG TABLET (FP) PO PRN (19:34)
[2018-06-03] MEDS ORDERED: guaiFENesin 200 MG/10 ML 10 ML UNIT-DOSE CUPS PO PRN (19:34)
[2018-06-03] MEDS ORDERED: chlordiazePOXIDE HCL 10 MG CAPSULE PO PRN (19:34)
[2018-06-03] MEDS ORDERED: MELATONIN 5 MG TABLETS PO PRN (19:34)
[2018-06-03] MEDS ORDERED: P-EPHED 60MG/TRIPROLIDI 2.5MG TABLET PO PRN (19:34)
[2018-06-03] MEDS ORDERED: METHOCARBAMOL 500 MG TABLET PO PRN (19:34)
[2018-06-03] MEDS ORDERED: MAG HYDROX/AL HYDROX/SIMETH 30 ML UNIT-DOSE CUP PO PRN (19:34)
[2018-06-03] MEDS ORDERED: MENTHOL/PHENOL 1 EACH UD MM PRN (19:34)
[2018-06-03] MEDS ORDERED: BISMUTH SUBSALICYLATE 524 MG/30 ML UD PO PRN (19:34)
[2018-06-03] MEDS ORDERED: MAGNESIUM HYDROX 2400MG/30ML ORAL SUSPENSION 30 ML CUP PO PRN (19:34)
[2018-06-03] MEDS ORDERED: ACETAMINOPHEN 325 MG TABLET (FP) PO PRN ×2 (19:34)
[2018-06-03] MEDS ORDERED: cloNIDine HCL 0.1 MG TABLET PO ONE (20:29)
[2018-06-03] MEDS: chlordiazePOXIDE HCL 25 MG CAPSULE PO SCH (20:41)
[2018-06-03] MEDS: THIAMINE HCL 100 MG TABLET (FP) PO SCH (21:36)
[2018-06-04] MEDS: chlordiazePOXIDE HCL 25 MG CAPSULE PO SCH ×2 (05:15→12:39)
[2018-06-04 10:07] LABS: HEMATOCRIT 49.2 % (35.4-49); HEMOGLOBIN 16.7 GM/dL (11.7-16.9); MCH 35.4 pg (25.7-33.7); MEAN CELL VOLUME 104.3 fl (80-96); MEAN PLT VOLUME 8.8 fl (7.5-11.1); PLATELET COUNT 224 K/MM3 (134-434); RBC 4.72 M/mm3 (4.00-5.60); RDW 16.5 % (11.9-15.9); WHITE BLOOD COUNT 6.3 K/mm3 (4.0-10.0)
[2018-06-04] MEDS: PRENATAL VITAMINS W/ FOLIC ACID TABLET (FP) PO SCH (10:11)
[2018-06-04 10:17] LABS: BLOOD UREA NITROGEN 5 mg/dL (7-18); CHLORIDE 99 mmol/L (98-107); CO2 30 mmol/L (21-32); CREATININE 1.1 mg/dL (0.55-1.3); GLUCOSE,RANDOM 84 mg/dL (74-106); POTASSIUM 4.1 mmol/L (3.5-5.1); SODIUM 135 mmol/L (136-145)
[2018-06-04 10:18] LABS: ALBUMIN 3.2 g/dl (3.4-5.0); ALK PHOS 76 U/L (45-117); ANION GAP 7 MMOL/L (8-16); BILIRUBIN,TOTAL 2.4 mg/dL (0.2-1); CALCIUM 8.7 mg/dL (8.5-10.1); SGOT/AST 90 U/L (15-37); SGPT/ALT 57 U/L (13-61); TOT PROT 6.6 g/dl (6.4-8.2)
[2018-06-04] MEDS ORDERED: LISINOPRIL 10 MG TABLET (FP) PO ONE (11:11)
--- NOTE | 2018-06-04 13:07 | CONSULT ---
[facility] Psychiatric Consult - Data Date of interview: 06/04/18 Admission source: [facility] Identifying data: This is one of several admissions to [facility] for this 42 y/ o male self-referred for detoxification (alcohol). Interviewed at [address] [place] [address]. 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 Substance Abuse History: Confirmed by the patient. Mr Robledo reports that his alcohol consumption has escalated in recent weeks to the point of jeopardizing his employment and complicating his matrimonial situation. Consumes 1/2 bottle of vodka + up to 80 oz of beer on a daily basis. [facility] report : Smoking history: Current some day smoker. Have you smoked in the past 12 months: No. Aproximately how many cigarettes per day: 1. Hx Chewing Tobacco Use: No. Initiated information on smoking cessation: Yes. 'Breaking Loose' booklet given : 06/03/18. - Substance & Tx. History. Hx Alcohol Use: Yes. Hx Substance Use : Yes. Substance Use Type: Alcohol. Hx Substance Use Treatment: Yes ([facility] detox 12/17/17 -12/21/17). - Substances abused. Alcohol. Substance route: Oral. Frequency: Daily. Amount used: 60 OZ BEER + 1 or 2 nips. Age of first use: 17. Date of last use: 06/03/18 Medical History: Remarkable for hypertension, dyslipidemia, gout and a distant history of fracture of right arm (childhood). Psychiatric History: Patient denies history of psychiatric hospitalizations or suicide attempts. Mr Robledo used to attend psychiatric OPD care at the [facility] in [facility] (followed by Dr Rose). Diagnosed in the past with Anxiety Disorder. Patient denies taking psychotropic medications. He is seeing a psychiatrist, Dr Barnhart, at [facility] located in [facility]. Medications not prescribed (according to patient). Physical/Sexual Abuse/Trauma History: No reported history of abuse. Stressors : marital difficulties, financial strains and ETOH addiction. Additional Comment: Urine drug screen results: BZO-Benzodiazepines. Noted. Mental Status Exam - Mental Status Exam Alert and Oriented to: Time Cognitive Function: Good Patient Appearance: Well Groomed Mood: Nervous, Withdrawn, Anxious Affect: Mood Congruent, Constricted Patient Behavior: Fatigued, Appropriate, Cooperative Speech Pattern: Clear, Appropriate Voice Loudness: Normal Thought Process: Intact, Goal Oriented Thought Disorder: Not Present Hallucinations: Denies Suicidal Ideation: Denies Homicidal Ideation: Denies Insight/Judgement: Poor Sleep: Fair Appetite: Good Muscle strength/Tone: Normal Gait/Station: Normal Psychiatric Findings - Problem List ([place] 1, 2,3) (1) Alcohol dependence with uncomplicated withdrawal Current Visit: Yes Status: Acute (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 Psychoeducation. Sleep hygiene. Detoxification. Insomnia is addressed with melatonin at bedtime. Side effects/benefits reviewed. Patient is in agreement with this plan of care. Observation.
--- NOTE | 2018-06-04 13:59 | PN ---
[facility] CIWA - CIWA Score Nausea/Vomitin-No Nausea/No Vomiting Muscle Tremors: 3 Anxiety: 5 Agitation: 3 Paroxysmal Sweats: 2 Orientation: 0-Oriented Tacttile Disturbances: 2-Mild Itch/Numbness/Burn Auditory Disturbances: 1-Very Mild Visual Disturbances: 0-None Headache: 0-None Present CIWA-Ar Total Score: 16 S Progress Note (SOAP) Subjective: Anxious, Fatigue, Tremors, Interrupted Sleep. Objective: PATIENT A & O X 3, OBSERVED AMBULATING ON UNIT UNASSISTED. IN NO ACUTE DISTRESS. 06/04/18 13:54 Vital Signs Temperature 99.2 F 06/04/18 13:04 Pulse Rate 86 06/04/18 13:04 Respiratory Rate 20 06/04/18 13:04 Blood Pressure 146/94 06/04/18 13:04 O2 Sat by Pulse Oximetry (%) Laboratory Tests 06/04/18 06/04/18 06/04/18 07:00 07:00 07:00 WBC 6.3 RBC 4.72 Hgb 16.7 Hct 49.2 H MCV 104.3 H MCH 35.4 H MCHC 34.0 RDW 16.5 H Plt Count 224 MPV 8.8 Sodium 135 L Potassium 4.1 Chloride 99 Carbon Dioxide 30 Anion Gap 7 L BUN 5 L Creatinine 1.1 Creat Clearance w eGFR 73.77 Random Glucose 84 Calcium 8.7 Total Bilirubin 2.4 H AST 90 H ALT 57 Alkaline Phosphatase 76 Total Protein 6.6 Albumin 3.2 L RPR Titer Nonreactive LABS NOTED. Assessment: 06/04/18 13:54 WITHDRAWAL SYMPTOMS. HYPERTENSION. ELEAVTED AST LEVEL. HYPERBILIRUBINEMIA. 06/04/18 13:58 Plan: CONTINUE DETOX. PATIENT REPORTS HISTORY OF PRESCRIBED LISINOPRIL (5 MG PO DAILY). DUE TO BP LEVELS NOTED THUS FAR, LISINOPRIL, 10 MG PO DAILY ORDERED. WILL CONTINUE TO MONITOR BP FOR EFFECT. REPEAT AST AND TOTAL BILIRUUBIN LEVELS ORDERED FOR TOMORROW AM DUE TO ELEVATED LEVELS NOTED ON ADMISSION TO DETOX.
[2018-06-04] MEDS: chlordiazePOXIDE 5 MG CAPSULE PO SCH (22:08)
[2018-06-04] MEDS: THIAMINE HCL 100 MG TABLET (FP) PO SCH (22:08)
[2018-06-05] MEDS: chlordiazePOXIDE 5 MG CAPSULE PO SCH ×2 (05:15→12:50)
[2018-06-05] MEDS: LISINOPRIL 10 MG TABLET (FP) PO SCH (10:16)
[2018-06-05] MEDS: PRENATAL VITAMINS W/ FOLIC ACID TABLET (FP) PO SCH (10:16)
--- NOTE | 2018-06-05 12:19 | PN ---
S CIWA - CIWA Score Nausea/Vomitin-Mild Nausea/No Vomiting Muscle Tremors: 2 Anxiety: 1-Mildly Anxious Agitation: 1-Slight > Activity Paroxysmal Sweats: 1-Minimal Palms Moist Orientation: 0-Oriented Tacttile Disturbances: 0-None Auditory Disturbances: 0-None Visual Disturbances: 0-None Headache: 0-None Present CIWA-Ar Total Score: 6 BHS Progress Note (SOAP) Subjective: S: pt states doing well, wants to know results of labs, worried about abnormal liver enzymes O: Vital Signs - 24 hr 06/04/18 06/04/18 06/04/18 13:04 18:00 21:53 Temperature 99.2 F 97.6 F 97.6 F Pulse Rate 86 95 H 78 Respiratory 20 19 16 Rate Blood Pressure 146/94 104/81 110/75 06/05/18 06/05/18 06/05/18 00:30 03:30 06:30 Temperature Pulse Rate Respiratory 18 18 18 Rate Blood Pressure 06/05/18 06/05/18 06:33 09:26 Temperature 96.7 F L 98.9 F Pulse Rate 62 85 Respiratory 18 20 Rate Blood Pressure 107/68 120/82 Laboratory Tests 06/04/18 06/04/18 06/04/18 07:00 07:00 07:00 WBC 6.3 RBC 4.72 Hgb 16.7 Hct 49.2 H MCV 104.3 H MCH 35.4 H MCHC 34.0 RDW 16.5 H Plt Count 224 MPV 8.8 Sodium 135 L Potassium 4.1 Chloride 99 Carbon Dioxide 30 Anion Gap 7 L BUN 5 L Creatinine 1.1 Creat Clearance w eGFR 73.77 Random Glucose 84 Calcium 8.7 Total Bilirubin 2.4 H AST 90 H ALT 57 Alkaline Phosphatase 76 Total Protein 6.6 Albumin 3.2 L RPR Titer Nonreactive 06/05/18 08:45 WBC RBC Hgb Hct MCV MCH MCHC RDW Plt Count MPV Sodium Potassium Chloride Carbon Dioxide Anion Gap BUN Creatinine Creat Clearance w eGFR Random Glucose Calcium Total Bilirubin 2.0 H AST 91 H ALT Alkaline Phosphatase Total Protein Albumin RPR Titer increased AST/Bili- same as yesterday increased MCV a/p: alcohol detox- pt states doing well, wants to be abstinent, d/w pt revia and the importance of good diet and nutrition discussed labs with pt- and the importance of abstaining from alcohol
[2018-06-05 15:05] LABS: EPI CELLS 0.3 /HPF (0-5/HPF); URINE APPEARANCE CLEAR; URINE BACTERIA 1.7 /hpf (NEGATIVE); URINE BILIRUBIN 1+ (NEGATIVE); URINE CASTS 0 /lpf (0-8); URINE COLOR ORANGE; URINE GLUCOSE (UA) NEGATIVE (NEGATIVE); URINE KETONE TRACE (NEGATIVE); URINE LEUK ESTERASE TRACE (NEGATIVE); URINE NITRITE NEGATIVE (NEGATIVE); URINE PROTEIN NEGATIVE (NEGATIVE); URINE RBC 1 /hpf (0-4); URINE WBC 0 /hpf (0-5)
[2018-06-05] MEDS ORDERED: chlordiazePOXIDE HCL 10 MG CAPSULE PO PRN (21:00)
[2018-06-05] MEDS: chlordiazePOXIDE HCL 10 MG CAPSULE PO SCH (22:23)
[2018-06-05] MEDS: THIAMINE HCL 100 MG TABLET (FP) PO SCH (22:23)
[2018-06-06] MEDS: chlordiazePOXIDE HCL 10 MG CAPSULE PO SCH (05:08)
[2018-06-06 06:11] VITALS: BP 107/70; PULSE 59; TEMP 97.1
[2018-06-06] MEDS: LISINOPRIL 10 MG TABLET (FP) PO SCH (09:02)
--- NOTE | 2018-06-06 15:40 | DS ---
[facility] Detox Discharge Summary Admission Date: 06/03/18 Discharge Date: 06/06/18 - History Present History: Alcohol Dependence Additional Comments: 42 years old male admitted on 06/03/18 for alcohol withdrawal stabilization feeling better today wants to go home and return to patient [facility] admission Pertinent Past History: bring in medication list and lab report to aftercare appointment - Physical Exam Results Vital Signs: Vital Signs Temperature 97.1 F L 06/06/18 06:10 Pulse Rate 59 L 06/06/18 06:10 Respiratory Rate 18 06/06/18 06:30 Blood Pressure 107/70 06/06/18 06:10 O2 Sat by Pulse Oximetry (%) Pertinent Admission Physical Exam Findings: alcohol withdrawal sx Laboratory Last Values WBC 6.3 K/mm3 (4.0-10.0) 06/04/18 07:00 RBC 4.72 M/mm3 (4.00-5.60) 06/04/18 07:00 Hgb 16.7 GM/dL (11.7-16.9) 06/04/18 07:00 Hct 49.2 % (35.4-49) H 06/04/18 07:00 MCV 104.3 fl (80-96) H 06/04/18 07:00 MCH 35.4 pg (25.7-33.7) H 06/04/18 07:00 MCHC 34.0 g/dl (32.0-35.9) 06/04/18 07:00 RDW 16.5 % (11.9-15.9) H 06/04/18 07:00 Plt Count 224 K/MM3 (134-434) 06/04/18 07:00 MPV 8.8 fl (7.5-11.1) 06/04/18 07:00 Sodium 135 mmol/L (136-145) L 06/04/18 07:00 Potassium 4.1 mmol/L (3.5-5.1) 06/04/18 07:00 Chloride 99 mmol/L (98-107) 06/04/18 07:00 Carbon Dioxide 30 mmol/L (21-32) 06/04/18 07:00 Anion Gap 7 MMOL/L (8-16) L 06/04/18 07:00 BUN 5 mg/dL (7-18) L 06/04/18 07:00 Creatinine 1.1 mg/dL (0.55-1.3) 06/04/18 07:00 Creat Clearance w eGFR 73.77 (>60) 06/04/18 07:00 Random Glucose 84 mg/dL (74-106) 06/04/18 07:00 Calcium 8.7 mg/dL (8.5-10.1) 06/04/18 07:00 Total Bilirubin 2.0 mg/dL (0.2-1) H 06/05/18 08:45 AST 91 U/L (15-37) H 06/05/18 08:45 ALT 57 U/L (13-61) 06/04/18 07:00 Alkaline Phosphatase 76 U/L (45-117) 06/04/18 07:00 Total Protein 6.6 g/dl (6.4-8.2) 06/04/18 07:00 Albumin 3.2 g/dl (3.4-5.0) L 06/04/18 07:00 Urine Color [place] 06/05/18 01:05 Urine Appearance Clear 06/05/18 01:05 Urine pH 6.0 (5.0-8.0) D 06/05/18 01:05 Ur Specific [place] 1.014 (1.010-1.035) 06/05/18 01:05 Urine Protein Negative (NEGATIVE) 06/05/18 01:05 Urine Glucose (UA) Negative (NEGATIVE) 06/05/18 01:05 Urine Ketones Trace (NEGATIVE) H 06/05/18 01:05 Urine Blood Negative (NEGATIVE) 06/05/18 01:05 Urine Nitrite Negative (NEGATIVE) 06/05/18 01:05 Urine Bilirubin 1+ (NEGATIVE) H 06/05/18 01:05 Urine Urobilinogen 1.0 mg/dL (0.2-1.0) 06/05/18 01:05 Ur Leukocyte Esterase Trace (NEGATIVE) 06/05/18 01:05 Urine WBC (Auto) 0 /hpf (0-5) 06/05/18 01:05 Urine RBC (Auto) 1 /hpf (0-4) 06/05/18 01:05 Urine Casts (Auto) 0 /lpf (0-8) 06/05/18 01:05 U Epithel Cells (Auto) 0.3 /HPF (0-5/HPF) 06/05/18 01:05 Urine Bacteria (Auto) 1.7 /hpf (NEGATIVE) 06/05/18 01:05 RPR Titer Nonreactive (NONREACTIVE) 06/04/18 07:00 lab noted - Treatment Hospital Course: Detox Protocol Followed, Detoxed Safely, Responded well, Discharged Condition Good, Rehab Referral Accepted Patient has Accepted [facility] Referral [facility] - Medication Discharge Medications: Ambulatory Orders Lisinopril [Zestril] 5 mg PO DAILY #30 tablet 07/05/17 - Diagnosis (1) Alcohol dependence with uncomplicated withdrawal Status: Acute (2) Essential hypertension Status: Chronic (3) Gout Status: Chronic Qualifiers: Gout site: toe Gout etiology: unspecified cause Chronicity: acute Laterality: left Qualified Code(s): M10.9 - Gout, unspecified (4) Nicotine dependence Status: Acute Qualifiers: Nicotine product type: cigarettes Substance use status: in withdrawal Qualified Code(s): F17.213 - Nicotine dependence, cigarettes, with withdrawal - AMA Did Patient Leave Against Medical Advice: No
== END 2018-06-06 09:08 | disposition home or self-care (01) | DRG 897 ==
LOC: YASAS 12:32 → Y3N 20:01
PROVIDERS: ADMIT Surgery; ATTEND Surgery
PROC: HZ2ZZZZ Detoxification Services for Substance Abuse Treatment (ICD-10-PCS; principal; 2018-06-01)
DX: F10.230 Alcohol dependence with withdrawal, uncomplicated (principal); F10.24 Alcohol dependence with alcohol-induced mood disorder; Z72.0 Tobacco use; R74.0 Nonspecific elevation of levels of transaminase and lactic acid dehydrogenase [LDH]; E88.09 Other disorders of plasma-protein metabolism, not elsewhere classified; E78.5 Hyperlipidemia, unspecified; R42 Dizziness and giddiness
CPT/HCPCS: 36415; 80053; 81003; 82247; 84450; 85027; 86593; J0735

== ENCOUNTER 2018-08-20 09:30 | Emergency (ER) | payer OTHER ==
[2018-08-20 09:41] VITALS: BMI 28.2
--- NOTE | 2018-08-20 10:27 | PDOC ---
History of Present Illness - General Chief Complaint: Lightheaded Stated Complaint: WEAKNESS/DIZZINESS - History of Present Illness Initial Comments: The pt is a 43M w/ a history of anxiety, GERD, HTN, EtOH abuse who presents for evaluation of 1 day of palpitations, lightheadedness as well as epigastric abdominal burning that started this morning, has been constant, is non-radiating , and not exacerbated/alleviated by anything he can identify. 08/20/18 10:44 Past History - Past Medical History Allergies/Adverse Reactions: Allergies Allergy/AdvReac Type Severity Reaction Status Date / Time No Known Allergies Allergy Verified 08/20/18 09:36 Home Medications: Ambulatory Orders Lisinopril [Zestril] 5 mg PO DAILY #30 tablet 07/05/17 Anemia: No Asthma: No Cancer: No Cardiac Disorders: No CVA: No COPD: No CHF: No Dementia: No Diabetes: No GI Disorders: No Disorders: No HTN: Yes (Recently prescribed Lisinopril non compliance) Hypercholesterolemia: Yes (OFF MEDS) Kidney Stones: No Liver Disease: No Psychiatric Problems: Yes (anxiety) Seizures: No Thyroid Disease: No Other medical history: GOUT - Surgical History Abdominal Surgery: No Appendectomy: No Cardiac Surgery: No Cholecystectomy: No Lung Surgery: No Neurologic Surgery: No Orthopedic Surgery: Yes (fx, right arm at age 8) - Family Disease History Family Disease History: Diabetes: Father, Heart Disease: Father - Reproductive History Testicular Surgery: No - Immunization History Immunization Up to Date: Yes - Suicide/Smoking/Psychosocial Hx Smoking History: Never smoked Have you smoked in the past 12 months: No Number of Cigarettes Smoked Daily: 1 Information on smoking cessation initiated: No 'Breaking Loose' booklet given: 06/03/18 Hx Alcohol Use: No Drug/Substance Use Hx: No Substance Use Type: Alcohol Hx Substance Use Treatment: Yes ([facility] detox 12/17/17 -12/21/17) Review of Systems - Review of Systems Able to Perform ROS?: Yes Comments:: GENERAL/CONSTITUTIONAL: No fever or chills. No weakness._ HEAD, EYES, EARS, NOSE AND THROAT: No change in vision. No ear pain or discharge. No sore throat._ CARDIOVASCULAR: No chest pain or shortness of breath_ RESPIRATORY: Denies cough, hemoptysis_ GASTROINTESTINAL: No nausea, vomiting, diarrhea or constipation._ GENITOURINARY: No dysuria, frequency, or change in urination._ MUSCULOSKELETAL: No joint or muscle swelling or pain. No neck or back pain._ SKIN: No rash_ NEUROLOGIC: No headache, vertigo, loss of consciousness, or change in strength/ sensation._ ENDOCRINE: No increased thirst. No abnormal weight change_ HEMATOLOGIC/LYMPHATIC: No anemia, easy bleeding, or history of blood clots._ ALLERGIC/IMMUNOLOGIC: No hives or skin allergy._ 08/20/18 10:26 Is the patient limited Nigerian proficient: No *Physical Exam - Vital Signs Last Vital Signs Temp Pulse Resp BP Pulse Ox 97.7 F 108 H 17 136/86 100 08/20/18 09:36 08/20/18 09:36 08/20/18 09:36 08/20/18 09:36 08/20/18 09:36 - Physical Exam Comments: GENERAL: Awake, alert, and oriented to person/place/time, in no acute distress_ HEAD: No signs of trauma, normocephalic, atraumatic _ EYES: PERRLA, EOMI, sclera anicteric, conjunctiva clear_ ENT: Hearing grossly normal, nares patent, oropharynx clear without exudates. No uvular deviation. Moist mucosa_ NECK: Normal ROM, supple, no lymphadenopathy, JVD, or masses_ LUNGS: No distress, speaks in full sentences, clear to auscultation bilaterally _ HEART: Regular rate and rhythm, normal S1 and S2, no murmurs appreciated, peripheral pulses normal and equal bilaterally._ ABDOMEN: Soft, nontender, normoactive bowel sounds. No guarding, no rebound. No masses_ EXTREMITIES: Normal inspection, Normal range of motion, no edema. No clubbing or cyanosis_ NEUROLOGICAL: Cranial nerves II through XII grossly intact. Normal speech, normal gait, no focal sensorimotor deficits _ SKIN: Warm, Dry, normal turgor, no rashes or lesions noted_ 08/20/18 10:27 ED Treatment Course - LABORATORY CBC & Chemistry Diagram: 08/20/18 12:07 08/20/18 12:07 Medical Decision Making - Medical Decision Making Ativan 1mg IV once for anxiety Librium 50mg PO once for withdraw ppx 08/20/18 12:43 *DC/Admit/Observation/Transfer Diagnosis at time of Disposition: Lightheadedness, Anxiety, Alcohol abuse - Discharge Dispostion Condition at time of disposition: Improved Decision to Admit order: No - Referrals Referrals: Kimberlyn House MD [Primary Care Provider] - Phong Rodriguez MD [Staff Physician] - Reuben Newton DO [Staff Physician] - Jose Dean MD [Staff Physician] - - Patient Instructions Printed Discharge Instructions: Alcohol Use Disorder, DI for Abdominal Pain- Adult Additional Instructions: You were seen in the Emergency Department for evaluation of abdominal pain, lightheadedness, and palpitations. Your labs and imaging were unremarkable. Review the handout provided at discharge. Follow up with your primary care provider within a week (a referral was given). Return to the Emergency Department if you develop fevers/chills, chest pain, trouble breathing, inability to tolerate food, worsening symptoms, or any new/concerning symptoms. - Post Discharge Activity Forms/Work/School Notes: Back to Work
[2018-08-20] MEDS ORDERED: FAMOTIDINE 20 MG/50 ML IVPB 20 MG/50 ML MG IVPB ONE ×2 (10:42→12:06)
[2018-08-20] MEDS ORDERED: LACTATED RINGERS SOLUTION 1000 ML INFUS.BAG IV ONE (10:42)
[2018-08-20] MEDS ORDERED: LIDOCAINE VISCOUS 2% ORAL/TOP 20 ML UNIT-DOSE CUP MM ONE (10:42)
[2018-08-20] MEDS ORDERED: MAG HYDROX/AL HYDROX/SIMETH 30 ML UNIT-DOSE CUP PO ONE (10:42)
[2018-08-20] MEDS ORDERED: chlordiazePOXIDE HCL 25 MG CAPSULE PO ONE (11:06)
--- NOTE | 2018-08-20 11:25 | PDOC ---
Attending Attestation - Resident Resident Name: Jemal Hurtado - ED Attending Attestation I have performed the following: I have examined & evaluated the patient, The case was reviewed & discussed with the resident, I agree w/resident's findings & plan - HPI HPI: 08/20/18 11:20 43y/o M h/o gout, anxiety and alcohol abuse in remission since 3 months ago but began etoh binge this weekend 2/2 life stressors, presents now with anxiety and light headedness this morning. admits to etoh intake with minimal diet over the past 3 days, last drink about 10pm last night. no si/hi/ah/vh. no tremor/ seizure. - Physicial Exam PE: 08/20/18 11:22 slight tachy on arrival, improved on exam. no fever anxious but otherwise alert, cooperative perrl, eomi no jaundice/pallor mmm s1s2 rrr, ctab, abd soft/nt/nd bs nl neuro intact - Medical Decision Making 08/20/18 11:22 43-year-old male with history of anxiety and alcohol abuse status post detox 3 months ago now with alcohol binge for 3 days presents with lightheadedness and anxiety this morning. Presentation seems most consistent with very early withdrawal, slight tachycardia without tremors or fasciculations. Cardiopulmonary exam is normal, no other acute psych issues. Labs, IV fluids Ativan, Librium Takes Celexa daily Declines detox at this time, we'll give referral, understands return criteria 08/20/18 12:54 labs normal, vitals improved, less anxious. d/c with detox/rehab info, understands return criteria. Heart Score/ECG Review #1 ECG reviewed & interpreted by me at: 09:34 General ECG Interpretation: Sinus Rhythm, Normal Rate (79), Normal Intervals ( qtc 472), No acute ischemic changes
[2018-08-20] MEDS ORDERED: LIDOCAINE VISCOUS 2% ORAL/TOP 20 ML UNIT-DOSE CUP ONE (12:05)
[2018-08-20] MEDS ORDERED: LORazepam 2 MG/ML SDV VIAL ONE (12:05)
[2018-08-20] MEDS ORDERED: MAG HYDROX/AL HYDROX/SIMETH 30 ML UNIT-DOSE CUP ONE (12:06)
[2018-08-20 12:20] LABS: BASO % 0.2 % (0-2.0); EOS % 0.2 % (0-4.5); HEMOGLOBIN 16.1 GM/dL (11.7-16.9); LYMPH % 10.1 % (8-40); MCH 31.6 pg (25.7-33.7); MCHC 34.9 g/dl (32.0-35.9); MEAN CELL VOLUME 90.5 fl (80-96); MEAN PLT VOLUME 8.3 fl (7.5-11.1); MONO % 5.5 % (3.8-10.2); PLATELET COUNT 235 K/MM3 (134-434); RBC 5.08 M/mm3 (4.00-5.60); RDW 13.2 % (11.9-15.9); WHITE BLOOD COUNT 9.6 K/mm3 (4.0-10.0)
[2018-08-20 12:48] LABS: ALBUMIN 4.5 g/dl (3.4-5.0); ALK PHOS 82 U/L (45-117); ANION GAP 8 MMOL/L (8-16); BILIRUBIN,TOTAL 3.8 mg/dL (0.2-1); BLOOD UREA NITROGEN 7.4 mg/dL (7-18); CALCIUM 9.6 mg/dL (8.5-10.1); CHLORIDE 100 mmol/L (98-107); CO2 28 mmol/L (21-32); GLUCOSE,RANDOM 109 mg/dL (74-106); POTASSIUM 4.4 mmol/L (3.5-5.1); SGOT/AST 45 U/L (15-37); SGPT/ALT 39 U/L (13-61); SODIUM 136 mmol/L (136-145); TOT PROT 8.3 g/dl (6.4-8.2)
[2018-08-20] MEDS ORDERED: chlordiazePOXIDE HCL 25 MG CAPSULE ONE (13:09)
--- NOTE | 2018-08-20 14:33 | EKG ---
Test Reason : Blood Pressure : / mmHG Vent. Rate : 079 BPM Atrial Rate : 079 BPM P-R Int : 162 ms QRS Dur : 078 ms QT Int : 412 ms P-R-T Axes : 041 003 013 degrees QTc Int : 472 ms NORMAL SINUS RHYTHM NORMAL ECG WHEN COMPARED WITH ECG OF 26-MAY-2018 09:47, CRITERIA FOR ANTERIOR INFARCT ARE NO LONGER PRESENT NO SIGNIFICANT CHANGE WAS FOUND Confirmed by Dom Dillon ([id number]) on 08/20/2018 2:32:50 PM Referred By: Confirmed By:Dom Dillon
[2018-08-20 14:52] VITALS: BP 137/93; PULSE 96; TEMP 97.6
== END 2018-08-20 14:35 | disposition home or self-care (01) ==
LOC: JER 09:30
PROC: 3E023NZ Introduction of Analgesics, Hypnotics, Sedatives into Muscle, Percutaneous Approach (ICD-10-PCS; principal; 2018-08-20)
DX: F10.10 Alcohol abuse, uncomplicated (principal); F41.9 Anxiety disorder, unspecified; I10 Essential (primary) hypertension; E78.00 Pure hypercholesterolemia, unspecified
CPT/HCPCS: 36415; 71045-TC-FY; 80053; 84484; 85025; 93005; 93010; 99283-25

== ENCOUNTER 2018-09-25 12:17 | Emergency (ER) | payer SELFPAY, OTHER | END 2018-09-25 15:51 | disposition home or self-care (01) | LOC: JER 12:17 ==

== ENCOUNTER 2019-01-30 07:26 | Emergency (ER) | payer OTHER ==
[2019-01-30 07:37] VITALS: TEMP 97.9; BMI 28.1
[2019-01-30] MEDS ORDERED: SODIUM CHLORIDE 1,000 ML IV STA (07:52)
[2019-01-30] MEDS ORDERED: LORazepam 2 MG/ML SDV VIAL ONE (08:14)
[2019-01-30 08:41] LABS: BASO % 0.3 % (0-2.0); EOS % 0.3 % (0-4.5); HEMATOCRIT 47.3 % (35.4-49); HEMOGLOBIN 16.5 GM/dL (11.7-16.9); LYMPH % 12.3 % (8-40); MCH 34.6 pg (25.7-33.7); MCHC 34.9 g/dl (32.0-35.9); MEAN PLT VOLUME 7.9 fl (7.5-11.1); MONO % 6.5 % (3.8-10.2); NEUT % 80.6 % (42.8-82.8); PLATELET COUNT 261 K/MM3 (134-434); RBC 4.78 M/mm3 (4.00-5.60); WHITE BLOOD COUNT 9.2 K/mm3 (4.0-10.0)
[2019-01-30 09:07] LABS: ALBUMIN 3.8 g/dl (3.4-5.0); ALK PHOS 85 U/L (45-117); ANION GAP 10 MMOL/L (8-16); BILIRUBIN,TOTAL 1.4 mg/dL (0.2-1); BLOOD UREA NITROGEN 5.4 mg/dL (7-18); CALCIUM 9.2 mg/dL (8.5-10.1); CHLORIDE 101 mmol/L (98-107); CO2 26 mmol/L (21-32); CREATININE 1.3 mg/dL (0.55-1.3); GLUCOSE,RANDOM 126 mg/dL (74-106); MAGNESIUM 1.9 mg/dL (1.8-2.4); POTASSIUM 4.1 mmol/L (3.5-5.1); SGOT/AST 37 U/L (15-37); SGPT/ALT 30 U/L (13-61); SODIUM 137 mmol/L (136-145); TOT PROT 7.8 g/dl (6.4-8.2)
[2019-01-30 09:24] VITALS: BP 138/94; PULSE 89
--- NOTE | 2019-01-30 09:24 | PDOC ---
History of Present Illness - General Chief Complaint: Palpitations Stated Complaint: PALPITATIONS Time Seen by Provider: 01/30/19 07:47 History Source: Patient Exam Limitations: No Limitations - History of Present Illness Initial Comments: 01/30/19 08:17 43-year-old male with history of gout, hypertension, and alcohol abuse presents to ED feeling anxious, lightheaded, and developed palpitations this a.m. and so decided come to the ER. Patient states has been drinking heavily for the past 2 days since he is on vacation from work and at 6 AM this morning his symptoms began. Patient denies chest pain, shortness of breath and states took his vitals at home which showed a heart rate of 107 and a blood pressure of 150/ 100. Patient states does not take blood pressure medication as he states it is related to his alcohol abuse. patient denies headache, nausea, fever or chills. Patient states drug of choice is alcohol and denies illicit drug use otherwise. Is this a multiple visit Asthma Patient?: No Timing/Duration: 1-3 hours Severity: moderate Associated Symptoms: reports: other Past History - Travel Traveled outside of the country in the last 30 days: No Close contact w/someone who was outside of country & ill: No - Past Medical History Allergies/Adverse Reactions: Allergies Allergy/AdvReac Type Severity Reaction Status Date / Time No Known Allergies Allergy Verified 01/30/19 07:36 Home Medications: Ambulatory Orders Lisinopril [Zestril] 5 mg PO DAILY #30 tablet 07/05/17 Anemia: No Asthma: No Cancer: No Cardiac Disorders: No CVA: No COPD: No CHF: No Dementia: No Diabetes: No GI Disorders: No Disorders: No HTN: Yes (Recently prescribed Lisinopril non compliance) Hypercholesterolemia: Yes (OFF MEDS) Kidney Stones: No Liver Disease: No Psychiatric Problems: Yes (anxiety) Seizures: No Thyroid Disease: No Other medical history: gout - Surgical History Abdominal Surgery: No Appendectomy: No Cardiac Surgery: No Cholecystectomy: No Lung Surgery: No Neurologic Surgery: No Orthopedic Surgery: Yes (fx, right arm at age 8) - Reproductive History Testicular Surgery: No - Immunization History Immunization Up to Date: Yes - Psycho Social/Smoking Cessation Hx Smoking History: Never smoked Have you smoked in the past 12 months: Yes Number of Cigarettes Smoked Daily: 1 Information on smoking cessation initiated: No 'Breaking Loose' booklet given: 06/03/18 Hx Alcohol Use: No Drug/Substance Use Hx: No Substance Use Type: Alcohol Hx Substance Use Treatment: Yes ([facility] detox 12/17/17 -12/21/17) Patient Lives Alone: No Lives with/in: spouse/SO Review of Systems - Review of Systems Able to Perform ROS?: Yes Constitutional: No: Symptoms Reported HEENTM: No: Symptoms Reported Respiratory: No: Symptoms reported Cardiac (ROS): Yes: Lightheadedness, Palpitations. No: Chest Pain ABD/GI: No: Symptoms Reported : No: Symptoms Reported Musculoskeletal: No: Symptoms Reported Integumentary: No: Symptoms Reported Neurological: Yes: Dizziness Psychiatric: Yes: Anxiety, Depression, Stressors Endocrine: No: Symptoms Reported Hematologic/Lymphatic: No: Symptoms Reported *Physical Exam - Vital Signs Last Vital Signs Temp Pulse Resp BP Pulse Ox 97.9 F 98 H 19 168/98 100 01/30/19 07:34 01/30/19 07:34 01/30/19 07:34 01/30/19 07:34 01/30/19 07:34 - Physical Exam General Appearance: Yes: Nourished, Appropriately Dressed. No: Apparent Distress HEENT: negative: Pale Conjunctivae Neck: positive: Supple Respiratory/Chest: positive: Lungs Clear, Normal Breath Sounds. negative: Respiratory Distress, Accessory Muscle Use Gastrointestinal/Abdominal: positive: Soft. negative: Tenderness Musculoskeletal: negative: CVA Tenderness Extremity: positive: Normal Inspection Integumentary: positive: Normal Color, Warm, Moist Neurologic: positive: Motor Strength 5/5 (Ambulatory). negative: Normal Mood/ Affect (Anxious) Heart Score/ECG Review - ECG Intrepretation Rhythm: Regular Rhythm (NSR rate 95. Normal intervals no ST elevation or depression.) ED Treatment Course - LABORATORY CBC & Chemistry Diagram: 01/30/19 08:26 01/30/19 08:26 - ADDITIONAL ORDERS Additional order review: Laboratory Results 01/30/19 08:26 Sodium 137 Potassium 4.1 Chloride 101 Carbon Dioxide 26 Anion Gap 10 BUN 5.4 L Creatinine 1.3 Est GFR (CKD-EPI)AfAm 78.00 Est GFR (CKD-EPI)NonAf 67.30 Random Glucose 126 H Calcium 9.2 Magnesium 1.9 Total Bilirubin 1.4 H AST 37 ALT 30 Alkaline Phosphatase 85 Creatine Kinase 66 Troponin I < 0.02 Total Protein 7.8 Albumin 3.8 01/30/19 08:26 RBC 4.78 MCV 99.0 H MCHC 34.9 RDW 15.0 D MPV 7.9 Neutrophils % 80.6 D Lymphocytes % 12.3 D Monocytes % 6.5 Eosinophils % 0.3 Basophils % 0.3 - Medications Given in the ED: ED Medications Discontinued Medications Generic Name Dose Route Start Last Admin Trade Name Bianca PRN Reason Stop Dose Admin Sodium Chloride 1,000 mls @ 1,000 mls/hr 01/30/19 07:52 01/30/19 08:31 Normal Saline - IV 01/30/19 08:51 1,000 mls/hr ASDIR STA Administration Lorazepam 0.5 mg 01/30/19 07:53 01/30/19 08:31 Ativan Injection - IVPUSH 01/30/19 07:54 0.5 mg ONCE ONE Administration Medical Decision Making - Medical Decision Making 01/30/19 08:26 Chief complaint: Patient with complaints of dizziness, increased anxiety lightheadedness along with palpitations this morning at around 6 AM. Patient with known alcohol abuse and states has been drinking heavily for the past few days since he has been on vacation. Patient with history of hypertension but denies taking medications as he states is related to his alcohol abuse. Patient denies homicidal or suicidal ideation. Exam: Patient appears anxious slightly tachycardic blood pressure borderline elevated otherwise normal physical exam Plan: Labs, IV fluids, 0.5 mg of Ativan, EKG and reevaluation 01/30/19 09:27 Laboratory Tests 09/25/18 01/30/19 01/30/19 14:07 08:26 08:26 WBC 9.2 Hgb 16.5 Hct 47.3 MCV 99.0 H MCH 34.6 H Neutrophils % 80.6 D Sodium 137 Potassium 4.1 Chloride 101 Carbon Dioxide 26 Anion Gap 10 BUN 5.4 L Creatinine 1.3 1.3 Random Glucose 126 H Calcium 9.2 Magnesium 1.9 Total Bilirubin 1.4 H AST 37 ALT 30 Troponin I < 0.02 01/30/19 09:27 Selected Entries 01/30/19 09:23 Temperature 97.9 F Pulse Rate [ 89 Right] Blood Pressure 138/94 [Left] O2 Sat by Pulse 100 Oximetry (%) Patient states feeling much better. Patient will be discharged home with recommendations to avoid alcohol. Discharge - Discharge Information Problems reviewed: Yes Clinical Impression/Diagnosis: Palpitations, Alcohol-induced mood disorder, Anxiety Condition: Improved Disposition: HOME - Follow up/Referral Referrals: Kimberlyn House MD [Primary Care Provider] - - Patient Discharge Instructions Patient Printed Discharge Instructions: Anxiety and Panic Attacks (Alternative Therapy), DI for Alcohol Abuse, DI for Anxiety -- Adult Additional Instructions: At this time your labs and EKG were normal. I do recommend you avoid alcohol use as this exacerbates your anxiety and depression along with increasing your blood pressure and pulse. - Post Discharge Activity
--- NOTE | 2019-01-31 11:11 | EKG ---
Test Reason : Blood Pressure : / mmHG Vent. Rate : 095 BPM Atrial Rate : 095 BPM P-R Int : 188 ms QRS Dur : 082 ms QT Int : 380 ms P-R-T Axes : 042 011 005 degrees QTc Int : 477 ms NORMAL SINUS RHYTHM PROLONGED QT Confirmed by LARRY HOFFMAN MD ([id number]) on 01/31/2019 11:11:44 AM Referred By: Confirmed By:LARRY HOFFMAN MD
== END 2019-01-30 09:56 | disposition home or self-care (01) ==
LOC: JER 07:26
PROC: 3E0337Z Introduction of Electrolytic and Water Balance Substance into Peripheral Vein, Percutaneous Approach (ICD-10-PCS; principal; 2019-01-30)
PROC: 3E033NZ Introduction of Analgesics, Hypnotics, Sedatives into Peripheral Vein, Percutaneous Approach (ICD-10-PCS; 2019-01-30)
DX: F10.14 Alcohol abuse with alcohol-induced mood disorder (principal); R00.2 Palpitations; I10 Essential (primary) hypertension; F41.9 Anxiety disorder, unspecified
CPT/HCPCS: 36415; 80053; 82550; 83735; 84484; 85025; 93005; 93010; 99283-25; J7030

== ENCOUNTER 2019-10-07 11:18 | Emergency (ER) | payer OTHER ==
[2019-10-07 11:23] VITALS: BP 164/100; PULSE 113; TEMP 98.2; BMI 27.3
--- NOTE | 2019-10-07 11:24 | PDOC ---
Rapid Medical Evaluation Time Seen by Provider: 10/07/19 11:20 Medical Evaluation: Allergies Allergy/AdvReac Type Severity Reaction Status Date / Time No Known Allergies Allergy Verified 07/04/19 22:46 10/07/19 11:21 HPI: 44 year old male pmhx HTN (not on meds) with R hand laceration from glass occurred yesterday at 6pm Tetanus UTD Sent from [facility] due to depth of laceration US to r/o FB was negative PE: Laceration to 4th and 5th digit sensation intact FROM A/P: Pt to precede to ED for further eval and treatment
[2019-10-07] MEDS ORDERED: LISINOPRIL 10 MG TABLET (FP) PO SCH (11:53)
[2019-10-07] MEDS ORDERED: LISINOPRIL 5 MG TABLET (FP) ONE (11:56)
[2019-10-07] MEDS ORDERED: FOLIC ACID INJECTION - 1 MG, THIAMINE HCL 100 MG, MULTIVIT INJECTION ADULT 10 ML in SOD... IVPB ONE (12:12)
[2019-10-07] MEDS ORDERED: LORazepam 2 MG/ML SDV VIAL ONE (12:26)
--- NOTE | 2019-10-07 12:31 | PDOC ---
History of Present Illness - General Chief Complaint: Laceration Stated Complaint: RT. HAND LAC Time Seen by Provider: 10/07/19 11:20 - History of Present Illness Initial Comments: 10/07/19 12:28 44-year-old male presents for evaluation of lacerations on his right fourth third and fourth fingers after putting his hand through glass window last night. He states he was ultrasound and x-rayed at an urgent care and he was told he does not have a foreign body. He comes to the emergency room seeking alcohol detoxification as well as further evaluation for his hand lacerations. He has a past medical history of hypertension he is noncompliant with his lisinopril 10 mg daily. Past History - Medical History Allergies/Adverse Reactions: Allergies Allergy/AdvReac Type Severity Reaction Status Date / Time No Known Allergies Allergy Verified 10/07/19 11:48 Home Medications: Ambulatory Orders Lisinopril [Zestril] 5 mg PO DAILY #30 tablet 07/05/17 Prednisone [Prednisone 50 MG TABLETS] 50 mg PO DAILY 4 Days #4 tablet 07/05/19 Anemia: No Asthma: No Cancer: No Cardiac Disorders: No CVA: No COPD: No CHF: No Dementia: No Diabetes: No GI Disorders: No Disorders: No HTN: Yes (Recently prescribed Lisinopril non compliance) Hypercholesterolemia: Yes (OFF MEDS) Kidney Stones: No Liver Disease: No Psychiatric Problems: Yes (anxiety) Seizures: No Thyroid Disease: No - Surgical History Abdominal Surgery: No Appendectomy: No Cardiac Surgery: No Cholecystectomy: No Lung Surgery: No Neurologic Surgery: No Orthopedic Surgery: Yes (fx, right arm at age 8) - Reproductive History Testicular Surgery: No - Immunization History Immunization Up to Date: Yes - Psycho-Social/Smoking History Smoking History: Current some day smoker Have you smoked in the past 12 months: Yes Number of Cigarettes Smoked Daily: 1 Information on smoking cessation initiated: No 'Breaking Loose' booklet given: 06/03/18 - Substance Abuse Hx (Audit-C & DAST Scrn) How often the patient has a drink containing alcohol: 4 0r more times/wk Number of drinks the patient has on a typical day: 5 or 6 How often the patient has six or more drinks on one occasion: Weekly Score: In Men: 4 or > Positive; In Women: 3 or > Positive: 9 Screen Result (Pos requires Nsg. Audit-10AR): Positive Review of Systems - Review of Systems Constitutional: No: Fever ABD/GI: Yes: Nausea *Physical Exam - Vital Signs Last Vital Signs Temp Pulse Resp BP Pulse Ox 98.2 F 113 H 20 164/100 10/07/19 11:21 10/07/19 11:21 10/07/19 11:21 10/07/19 11:21 - Physical Exam General Appearance: Yes: Appropriately Dressed. No: Apparent Distress, Disheveled HEENT: positive: Symmetrical Neck: positive: Supple Respiratory/Chest: positive: Normal Breath Sounds. negative: Respiratory Distre ss Musculoskeletal: positive: Normal Inspection, Other (There are stellate lacerations over the DIPJ and skin overlying the middle phalanx on the third and fourth fingers of the right hand. There are no gross sensorimotor deficits FDS and FDP work independently in all fingers as well as extensor tendon function in all fingers. There is no visible tendons. 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 media buyer II-XII NML intact, Fully Oriented ED Treatment Course - LABORATORY CBC & Chemistry Diagram: 10/07/19 12:15 - RADIOLOGY Radiology Studies Ordered: Category Date Time Status HEAD CT WITHOUT CONTRAST [CT] Stat CT Scan 10/07/19 12:10 Ordered FINGER(S) RIGHT [RAD] Stat Radiology 10/07/19 11:54 Completed Medical Decision Making - Medical Decision Making 10/07/19 12:26 CIWA-Ar score Oriented and can do serial additions 0 Moderate to severe nausea with vomiting +2 Moderate tremor with patient's arm extended +4 Sweating palms +1 Moderate to severe anxiety +2 Agitation +2 Mild itching +2 Auditory disturbances not present Visual disturbances not present Moderate to severe headache +4 Patient is requesting detox from alcohol. Laboratory work sent. CAT scan because of headache and hypertension. Patient is noncompliant with his hypertensive medications. 10/07/19 12:30 10/07/19 15:36 [facility] called for admission 10/07/19 15:47 Patient to follow-up with orthopedic hand surgery for wound care for the lacerations on his hand. Wound care instructions provided. Dry sterile dr essing applied in the emergency room washing the area with soap and water twice a day and keep the area clean. Edges cannot be approximated. I have reviewed the pathophysiology with the patient. They are in agreement with the treatment plan all questions were answered to their satisfaction. Unde rstanding for follow-up without fail was also conveyed to the patient. Again they are in agreement. 10/07/19 15:48 Driven to 2 [facility] for ETOH detox 10/07/19 15:52 d/w Dr Martel accepted 2 [facility] Discharge - Discharge Information Problems reviewed: Yes Clinical Impression/Diagnosis: Anxiety, HTN (hypertension), Alcohol withdrawal, Alcohol abuse, Laceration of fingers without complication Condition: Stable Disposition: HOME - Admission No - Follow up/Referral Referrals: Kimberlyn House MD [Primary Care Provider] - Leonel Perry MD [Staff Physician] - - Patient Discharge Instructions Additional Instructions: Without fail follow-up with orthopedic hand surgery in 1 to 2 days for further evaluation and treatment options. Keep hands clean with soap and water dry sterile dressing such as a Band-Aid change twice a day do not apply any ointment such as bacitracin or Neosporin. In between washing her hands and applying dressings you may keep the area open to air throughout the day as well. Return to the emergency room for further issues you will be driven to two-part care for alcohol detox. - Post Discharge Activity
[2019-10-07 12:39] LABS: BASO % 0.5 % (0-2.0); EOS % 0.2 % (0-4.5); HEMATOCRIT 48.6 % (35.4-49); HEMOGLOBIN 16.7 GM/dL (11.7-16.9); LYMPH % 22.9 % (8-40); MCH 34.3 pg (25.7-33.7); MCHC 34.3 g/dl (32.0-35.9); MEAN CELL VOLUME 99.9 fl (80-96); MEAN PLT VOLUME 8.1 fl (7.5-11.1); MONO % 8.2 % (3.8-10.2); NEUT % 68.2 % (42.8-82.8); PLATELET COUNT 246 K/MM3 (134-434); RBC 4.87 M/mm3 (4.00-5.60); RDW 13.4 % (11.9-15.9); WHITE BLOOD COUNT 7.5 K/mm3 (4.0-10.0)
[2019-10-07 13:08] LABS: COCAINE, UR NEGATIVE ng/ml (CUTOFF=300); OPIATES, URI NEGATIVE ng/ml (CUTOFF=300); PHENCYCLIDINE,URINE NEGATIVE ng/ml (CUTOFF=25); URINE BARBITURATES NEGATIVE ng/ml (CUTOFF=200)
[2019-10-07 13:09] LABS: METHADONE, UR NEGATIVE ng/ml (CUTOFF=300); URINE AMPHETAMINES NEGATIVE ng/ml (CUTOFF=500); URINE BENZODIAZEPINES NEGATIVE ng/ml (CUTOFF=200)
--- NOTE | 2019-10-08 10:26 | EKG ---
Test Reason : Blood Pressure : / mmHG Vent. Rate : 086 BPM Atrial Rate : 086 BPM P-R Int : 160 ms QRS Dur : 078 ms QT Int : 372 ms P-R-T Axes : 033 -10 -08 degrees QTc Int : 445 ms NORMAL SINUS RHYTHM INFERIOR INFARCT , AGE UNDETERMINED ABNORMAL ECG WHEN COMPARED WITH ECG OF 30-JAN-2019 07:40, INFERIOR INFARCT IS NOW PRESENT Confirmed by MD Juan, Josh ([id number]) on 10/08/2019 10:26:05 AM Referred By: Confirmed By:Josh Martinez MD
== END 2019-10-07 16:01 | disposition home or self-care (01) ==
LOC: JERFT 11:18
PROC: 3E033NZ Introduction of Analgesics, Hypnotics, Sedatives into Peripheral Vein, Percutaneous Approach (ICD-10-PCS; principal; 2019-10-07)
PROC: 3E033GC Introduction of Other Therapeutic Substance into Peripheral Vein, Percutaneous Approach (ICD-10-PCS; 2019-10-07)
DX: S61.312A Laceration without foreign body of right middle finger with damage to nail, initial encounter (principal); S61.214A Laceration without foreign body of right ring finger without damage to nail, initial encounter; F10.239 Alcohol dependence with withdrawal, unspecified
CPT/HCPCS: 36415; 70450-TC; 73140-TC-RT-FY; 80307; 82550; 84484; 85025; 93005; 93010; 99285-25

== ENCOUNTER 2019-10-07 17:42 | Inpatient (IN) | payer OTHER ==
--- NOTE | 2019-10-07 19:07 | HP ---
CIWA Score Nausea/Vomitin-No Nausea/No Vomiting Muscle Tremors: None Anxiety: 4-Mod. Anxious/Guarded Agitation: 3 Paroxysmal Sweats: 1-Minimal Palms Moist Orientation: 0-Oriented Tacttile Disturbances: 0-None Auditory Disturbances: 0-None Visual Disturbances: 0-None Headache: 0-None Present CIWA-Ar Total Score: 8 - Admission Criteria OASAS Guidelines: Admission for Medically Managed Detox: Requires at least one of the followin. CIWA greater than 12 2. Seizures within the past 24 hours 3. Delirium tremens within the past 24 hours 4. Hallucinations within the past 24 hours 5. Acute intervention needed for co occurring medical disorder 6. Acute intervention needed for co occurring psychiatric disorder 7. Severe withdrawal that cannot be handled at a lower level of care (continued vomiting, continued diarrhea, abnormal vital signs) requiring intravenous medication and/or fluids 8. Admitting History and Physical - Smoking History Smoking history: Current some day smoker Have you smoked in the past 12 months: Yes Aproximately how many cigarettes per day: 1 - Alcohol/Substance Use Hx Alcohol Use: Yes Admission ROS [facility] Chief Complaint: " I need detox " Allergies/Adverse Reactions: Allergies Allergy/AdvReac Type Severity Reaction Status Date / Time No Known Allergies Allergy Verified 10/07/19 11:48 History of Present Illness: 42 year old male requesting detox from alcohol use , on average 50 oz beer and liquor , starts drinking after work , sometimes not drinking if he goes to work on Sundays . Latest use today , denies seizures , blackouts , had tremors today was given Ativan in ER . Current INEZ 0.072 tobacco - denies PMHX: HTN (non-compliant), gout non- compliant w/ meds Psych: anxiety, depression , denies SI / HI , PSHX : R UE 2/2 fall oOW age 9 , JANICE was in ER today @ [facility] 2/2 right hand laceration after hitting hand against ledge and cut by a bottle. " 10/07/19 15:47 Patient to follow-up with orthopedic hand surgery for wound care for the lacerations on his hand. Wound care instructions provided. Dry sterile dressi ng applied in the emergency room washing the area with soap and water twice a day and keep the area clean. Edges cannot be approximated." Exam Limitations: Clinical Condition, Intoxication - Review of Systems Constitutional: Loss of Appetite EENT: reports: No Symptoms Reported Respiratory: reports: Other (( feels he cannot take a deep breath at times, associates w/ anxiety )) Cardiac: reports: No Symptoms Reported GI: reports: Diarrhea (intermittent w/ etoh use .), Poor Appetite : reports: No Symptoms Reported Musculoskeletal: reports: Gout Integumentary: reports: Other (right hand laceration) Neuro: reports: No Symptoms reported Endocrine: reports: No Symptoms Reported Hematology: reports: No Symptoms Reported Psychiatric: reports: Orientated x3, Agitated, Anxious Patient History - Patient Medical History Hx Anemia: No Hx Asthma: No Hx Chronic Obstructive Pulmonary Disease (COPD): No Hx Cancer: No Hx Cardiac Disorders: No Hx Congestive Heart Failure: No Hx Hypertension: Yes (Recently prescribed Lisinopril non compliance) Hx Hypercholesterolemia: Yes (OFF MEDS) Hx Pacemaker: No HX Cerebrovascular Accident: No Hx Seizures: No Hx Dementia: No Hx Diabetes: No Hx Gastrointestinal Disorders: No Hx Liver Disease: No Hx Genitourinary Disorders: No Hx Sexually Transmitted Disorders: No Hx Renal Disease (ESRD): No Hx Thyroid Disease: No Hx Human Immunodeficiency Virus (HIV): No (Last test reported negative. Pt refused test today) Hx Hepatitis C: No Hx Depression: Yes Hx Suicide Attempt: No Hx Bipolar Disorder: No Hx Schizophrenia: No - Patient Surgical History Past Surgical History: Yes Hx Neurologic Surgery: No Hx Cataract Extraction: No Hx Cardiac Surgery: No Hx Lung Surgery: No Hx Breast Surgery: No Hx Breast Biopsy: No Hx Abdominal Surgery: No Hx Appendectomy: No Hx Cholecystectomy: No Hx Genitourinary Surgery: No Hx Section: No Hx Orthopedic Surgery: Yes (fx, right arm at age 8) Anesthesia Reaction: No - PPD History Date: 07/04/17 Results: 0 MM - Smoking Cessation Smoking history: Current some day smoker Have you smoked in the past 12 months: Yes Aproximately how many cigarettes per day: 1 Hx Chewing Tobacco Use: No Initiated information on smoking cessation: No Admission Physical Exam BHS - Vital Signs Vital Signs: Vital Signs - 24 hr 10/07/19 19:00 Temperature 98.5 F Pulse Rate 109 H Respiratory 18 Rate Blood Pressure 122/86 - Physical General Appearance: Yes: Mild Distress, Intoxicated, Irritable, Anxious HEENTM: Yes: EOMI, Hearing grossly Normal, Normocephalic, Normal Voice Respiratory: Yes: Chest Non-Tender, Lungs Clear, Normal Breath Sounds, No Respiratory Distress, No Accessory Muscle Use Neck: Yes: No masses,lesions,Nodules, Trachea in good position Cardiology: Yes: Regular Rhythm, Regular Rate, S1, S2, Tachycardia Abdominal: Yes: Non Tender, Soft Back: Yes: Normal Inspection Musculoskeletal: Yes: Gait Steady, Joint Stiffness Extremities: Yes: Normal Range of Motion, Non-Tender Neurological: Yes: Fully Oriented, Alert, Motor Strength 5/5, Normal Mood/Affect Integumentary: Yes: Warm - Addiitonal Findings: 01/30/2019 QTc 477 ms - Diagnostic (1) Alcohol dependence with uncomplicated withdrawal Current Visit: Yes Status: Chronic Breathalyzer - Breathalyzer Breathalyzer: 0 Urine Drug Screen - Test Device Lot number: [id number] Expiration date: 05/20/21 - Control Is test valid?: Yes - Results Drug screen NEGATIVE: No Urine drug screen results: BZO-Benzodiazepines Inpatient Rehab Admission - Rehab Decision to Admit Inpatient rehab admission?: No
[2019-10-07] MEDS ORDERED: BISMUTH SUBSALICYLATE 524 MG/30 ML UD PO PRN (19:23)
[2019-10-07] MEDS ORDERED: IBUPROFEN 400 MG TABLET (FP) PO PRN (19:23)
[2019-10-07] MEDS ORDERED: MAGNESIUM HYDROX 2400MG/30ML ORAL SUSPENSION 30 ML CUP PO PRN (19:23)
[2019-10-07] MEDS ORDERED: METHOCARBAMOL 500 MG TABLET PO PRN (19:23)
[2019-10-07] MEDS ORDERED: hydrOXYzine PAMOATE 25 MG CAPSULE (FP) PO PRN (19:23)
[2019-10-07] MEDS ORDERED: MENTHOL/PHENOL 1 EACH UD MM PRN (19:23)
[2019-10-07] MEDS ORDERED: MELATONIN 5 MG TABLETS PO PRN (19:23)
[2019-10-07] MEDS ORDERED: MAG HYDROX/AL HYDROX/SIMETH 30 ML UNIT-DOSE CUP PO PRN (19:23)
[2019-10-07] MEDS ORDERED: MAGNESIUM CITRATE 300 ML BOTTLE PO PRN (19:23)
[2019-10-07] MEDS ORDERED: ONDANSETRON *ODT* 4 MG TABLET SL ONE (19:23)
[2019-10-07] MEDS ORDERED: ACETAMINOPHEN 325 MG TABLET (FP) PO PRN ×2 (19:23)
[2019-10-07] MEDS ORDERED: chlordiazePOXIDE HCL 25 MG CAPSULE PO PRN (19:30)
[2019-10-07] MEDS ORDERED: chlordiazePOXIDE HCL 25 MG CAPSULE PO ONE (19:30)
[2019-10-07 20:53] VITALS: BMI 26.6
[2019-10-07] MEDS: THIAMINE HCL 100 MG TABLET (FP) PO SCH (21:51)
[2019-10-07] MEDS: chlordiazePOXIDE HCL 25 MG CAPSULE PO SCH (22:00)
[2019-10-08] MEDS: chlordiazePOXIDE HCL 25 MG CAPSULE PO SCH ×4 (05:16→22:11)
[2019-10-08] MEDS ORDERED: PRENATAL VITAMINS W/ FOLIC ACID TABLET (FP) PO SCH (10:00)
[2019-10-08] MEDS ORDERED: LISINOPRIL 5 MG TABLET (FP) PO SCH (10:00)
[2019-10-08] MEDS: BACITRACIN 0.9 GM PACKET TP SCH ×2 (10:13→22:09)
[2019-10-08 10:47] LABS: BILIRUBIN,TOTAL 1.9 mg/dL (0.2-1); BLOOD UREA NITROGEN 4.9 mg/dL (7-18); CALCIUM 8.4 mg/dL (8.5-10.1); CREATININE 1.1 mg/dL (0.55-1.3); POTASSIUM 3.8 mmol/L (3.5-5.1); TOT PROT 6.3 g/dl (6.4-8.2)
--- NOTE | 2019-10-08 10:48 | CONSULT ---
[facility] Psychiatric Consult - Data Date of interview: 10/08/19 Admission source: [facility] Identifying data: Readmission to [facility] for this 44 y/o male self- referred for detoxification treatment. JUNE issues : alcohol, nicotine. Patient is , no dependents, domiciled and currently employed. Substance Abuse History: Discussed with the patient. JUNE profile as follows : started using alcohol (beer + liquor) at age 17. Drinks daily. Mr Robledo informs that he " rarely " smokes cigarettes. Medical History: Medical profile is remarkable for hypertension, dyslipidemia, gout and a distant history of fracture of right arm (childhood). On this admission, the patient was initially seen at [facility], on 10/07/19, for lacerations on his right fourth third + fourth fingers (sustained after putting his hand through glass window). Refer to current H + P for details. No known allergies. Psychiatric History: Patient denies history of psychiatric hospitalizations or suicide attempts. He is known to the [facility] program in [place], [place]. Has been diagnosed with Anxiety Disorder. Mr Robledo reports that he has stopped taking lexapro (for more than seven months) and dropped out of follow-up (Dr Barnhart at [facility], located in [place], [place]). Physical/Sexual Abuse/Trauma History: No reported history of abuse. Stressors : marital difficulties, financial strains and ETOH addiction. Additional Comment: Urine drug screen results: BZO-Benzodiazepines. Noted. Mental Status Exam - Mental Status Exam Alert and Oriented to: Time, Place, Person Cognitive Function: Good Patient Appearance: Well Groomed Mood: Withdrawn, Hopeful Affect: Appropriate, Normal Range Patient Behavior: Fatigued, Appropriate, Cooperative Speech Pattern: Clear, Appropriate Voice Loudness: Normal Thought Process: Intact, Goal Oriented Thought Disorder: Not Present Hallucinations: Denies Suicidal Ideation: Denies Homicidal Ideation: Denies Insight/Judgement: Poor Sleep: Well Appetite: Good Gait/Station: Normal Psychiatric Findings - Problem List ([place] 1, 2,3) (1) Alcohol dependence with uncomplicated withdrawal Current Visit: Yes Status: Acute (2) Alcohol-induced mood disorder Current Visit: Yes Status: Chronic (3) History of anxiety disorder Current Visit: Yes Status: Chronic - Initial Treatment Plan Initial Treatment Plan: Psychoeducation. Sleep hygiene. Support. Detoxification in progress. Patient does not wish to resume SSRI medications. MAT interventions (vivitrol, acamprosate) discussed in this session. Observation.
[2019-10-08] MEDS ORDERED: PNEUMOCOCCAL 23 VACCINE 0.5 ML VIAL IM ONE (12:00)
[2019-10-08] MEDS ORDERED: PNEUMOC 13-VAL CONJ-DIP CRM/PF 0.5 ML DISP.SYRIN IM ONE (12:00)
--- NOTE | 2019-10-08 12:49 | PN ---
S CIWA - CIWA Score Nausea/Vomitin-Mild Nausea/No Vomiting Muscle Tremors: 2 Anxiety: 2 Agitation: 2 Paroxysmal Sweats: No Perspiration Orientation: 0-Oriented Tacttile Disturbances: 1-Very Mild Itch/Numbness Auditory Disturbances: 0-None Visual Disturbances: 0-None Headache: 2-Mild CIWA-Ar Total Score: 10 BHS Progress Note (SOAP) Subjective: alert,irritable,anxious,interrupted sleep,tremor,aching pain in the body and b ack,nausea Objective: 10/08/19 12:47 Vital Signs Temperature 97.3 F L 10/08/19 08:38 Pulse Rate 86 10/08/19 08:38 Respiratory Rate 18 10/08/19 08:38 Blood Pressure 118/85 10/08/19 08:38 O2 Sat by Pulse Oximetry (%) 100 10/08/19 05:10 Assessment: 10/08/19 13:13 withdrawal symptom Plan: continue detox librium regimen,patient is allergic to lisinopril,d/c lisinopril
[2019-10-08 14:52] LABS: HEMATOCRIT 44.5 % (35.4-49); HEMOGLOBIN 15.1 GM/dL (11.7-16.9); MCH 34.1 pg (25.7-33.7); MCHC 33.9 g/dl (32.0-35.9); MEAN CELL VOLUME 100.4 fl (80-96); MEAN PLT VOLUME 8.6 fl (7.5-11.1); PLATELET COUNT 187 K/MM3 (134-434); RBC 4.43 M/mm3 (4.00-5.60); RDW 12.9 % (11.9-15.9); WHITE BLOOD COUNT 6.1 K/mm3 (4.0-10.0)
[2019-10-08] MEDS: THIAMINE HCL 100 MG TABLET (FP) PO SCH (22:11)
[2019-10-09] MEDS ORDERED: chlordiazePOXIDE HCL 25 MG CAPSULE PO SCH (05:00)
[2019-10-09 09:06] VITALS: BP 111/76; PULSE 64; TEMP 97.8
--- NOTE | 2019-10-09 09:12 | DS ---
[facility] Detox Discharge Summary Admission Date: 10/07/19 Discharge Date: 10/09/19 - History Present History: Alcohol Dependence Additional Comments: 44 years old male was admitted on 10/07/19 for alcohol withdrawal sx management treated with librium detox regiment seen by psychiatrist no medical intervention mr rosales prefers to return to [facility] where his psychiatrist primary care provider and substance abuse treatment counselor are located General Appearance: Yes: no Distress, not Intoxicated, no Irritable, mild Anxious HEENTM: Yes: EOMI, Hearing grossly Normal, Normocephalic, Normal Voice Respiratory: Yes: Chest Non-Tender, Lungs Clear, Normal Breath Sounds, No Respiratory Distress, No Accessory Muscle Use Neck: Yes: No masses,lesions,Nodules, Trachea in good position Cardiology: Yes: Regular Rhythm, Regular Rate, S1, S2, Tachycardia Abdominal: Yes: Non Tender, Soft Back: Yes: Normal Inspection Musculoskeletal: Yes: Gait Steady, Joint Stiffness Extremities: Yes: Normal Range of Motion, Non-Tender Neurological: Yes: Fully Oriented, Alert, Motor Strength 5/5, Normal Mood/Affect Integumentary: Yes: Warm Pertinent Past History: time for discharge 49 minutes treatment team met with mr rosales to discuss benefits of librium regiment completion mr rosales states that his is supportive and helps him "stay in treatment" - Physical Exam Results Vital Signs: Vital Signs Temperature 97.8 F 10/09/19 08:33 Pulse Rate 64 10/09/19 08:33 Respiratory Rate 18 10/09/19 08:33 Blood Pressure 111/76 10/09/19 08:33 O2 Sat by Pulse Oximetry (%) 99 10/09/19 06:33 Pertinent Admission Physical Exam Findings: alcohol withdrawal Laboratory Tests 10/07/19 10/08/19 10/08/19 21:15 08:10 08:10 WBC RBC Hgb Hct MCV MCH MCHC RDW Plt Count MPV Sodium 138 Potassium 3.8 Chloride 103 Carbon Dioxide 29 Anion Gap 6 L BUN 4.9 L Creatinine 1.1 Est GFR (CKD-EPI)AfAm 94.79 Est GFR (CKD-EPI)NonAf 81.78 Random Glucose 87 Calcium 8.4 L Total Bilirubin 1.9 H AST 96 H ALT 52 Alkaline Phosphatase 66 Total Protein 6.3 L Albumin 3.0 L Syphilis Serology Non-reactive COVID-19 ([facility]) Not detected 10/08/19 10:00 WBC 6.1 RBC 4.43 Hgb 15.1 Hct 44.5 MCV 100.4 H MCH 34.1 H MCHC 33.9 RDW 12.9 Plt Count 187 D MPV 8.6 Sodium Potassium Chloride Carbon Dioxide Anion Gap BUN Creatinine Est GFR (CKD-EPI)AfAm Est GFR (CKD-EPI)NonAf Random Glucose Calcium Total Bilirubin AST ALT Alkaline Phosphatase Total Protein Albumin Syphilis Serology COVID-19 ([facility]) alcohol induced ast elevation mr colon will repeat ast at the [facility] - Treatment Hospital Course: Detox Protocol Followed, Detoxed Safely, Responded well, Discharged Condition Good, Rehab Referral Accepted Patient has Accepted a Rehab Referral to: [facility] - Diagnosis (1) Alcohol dependence with uncomplicated withdrawal Status: Acute (2) Elevated aspartate aminotransferase level Status: Chronic (3) Laceration of fingers without complication Status: Acute Qualifiers: Encounter type: subsequent encounter Qualified Code(s): S61.219D - Laceration without foreign body of unspecified finger without damage to nail, subsequent encounter (4) Nicotine dependence Status: Acute Qualifiers: Nicotine product type: cigarettes Substance use status: in withdrawal Qualified Code(s): F17.213 - Nicotine dependence, cigarettes, with withdrawal (5) HLD (hyperlipidemia) Status: Chronic Qualifiers: Hyperlipidemia type: unspecified Qualified Code(s): E78.5 - Hyperlipidemia, unspecified (6) Schizoaffective disorder Status: Suspected Qualifiers: Schizoaffective disorder type: unspecified Qualified Code(s): F25.9 - Schizoaffective disorder, unspecified - AMA Did Patient Leave Against Medical Advice: No CIWA Score - CIWA Score Nausea/Vomitin-No Nausea/No Vomiting Muscle Tremors: 2 Anxiety: 1-Mildly Anxious Agitation: 1-Slight > Activity Paroxysmal Sweats: No Perspiration Orientation: 0-Oriented Tacttile Disturbances: 0-None Auditory Disturbances: 0-None Visual Disturbances: 0-None Headache: 1-Very Mild CIWA-Ar Total Score: 5
[2019-10-10] MEDS ORDERED: chlordiazePOXIDE HCL 10 MG CAPSULE PO PRN
[2019-10-10] MEDS ORDERED: chlordiazePOXIDE HCL 10 MG CAPSULE PO SCH (05:00)
[2019-10-11] MEDS ORDERED: chlordiazePOXIDE HCL 10 MG CAPSULE PO SCH (05:00)
[2019-10-12] MEDS ORDERED: chlordiazePOXIDE HCL 10 MG CAPSULE PO ONE (05:00)
== END 2019-10-09 09:43 | disposition home or self-care (01) | DRG 897 ==
LOC: YASAS 17:42 → Y3N 19:52
PROVIDERS: ADMIT Allergy & Immunology; ATTEND Allergy & Immunology
PROC: HZ2ZZZZ Detoxification Services for Substance Abuse Treatment (ICD-10-PCS; principal; 2019-10-07)
DX: F10.230 Alcohol dependence with withdrawal, uncomplicated (principal); F17.210 Nicotine dependence, cigarettes, uncomplicated; F25.9 Schizoaffective disorder, unspecified; F10.24 Alcohol dependence with alcohol-induced mood disorder; F41.9 Anxiety disorder, unspecified; I10 Essential (primary) hypertension; E78.5 Hyperlipidemia, unspecified; M10.9 Gout, unspecified; R74.0 Nonspecific elevation of levels of transaminase and lactic acid dehydrogenase [LDH]; S61.212D Laceration without foreign body of right middle finger without damage to nail, subsequent encounter; S61.214D Laceration without foreign body of right ring finger without damage to nail, subsequent encounter; W25.XXXD Contact with sharp glass, subsequent encounter; Z87.81 Personal history of (healed) traumatic fracture; Z88.8 Allergy status to other drugs, medicaments and biological substances
CPT/HCPCS: 36415; 80053; 85027; 86780; U0003

== ENCOUNTER 2020-07-01 10:42 | Inpatient (IN) | payer OTHER ==
[2020-07-01 11:57] VITALS: BMI 29.4
[2020-07-01] MEDS ORDERED: MAGNESIUM HYDROX 2400MG/30ML ORAL SUSPENSION 30 ML CUP PO PRN (12:33)
[2020-07-01] MEDS ORDERED: ONDANSETRON *ODT* 4 MG TABLET SL PRN (12:33)
[2020-07-01] MEDS ORDERED: ACETAMINOPHEN 325 MG TABLET (FP) PO PRN ×2 (12:33)
[2020-07-01] MEDS ORDERED: MAG HYDROX/AL HYDROX/SIMETH 30 ML UNIT-DOSE CUP PO PRN (12:33)
[2020-07-01] MEDS ORDERED: BISMUTH SUBSALICYLATE 262 MG/15 ML BTL PO PRN (12:33)
[2020-07-01] MEDS ORDERED: METHOCARBAMOL 500 MG TABLET PO PRN (12:33)
[2020-07-01] MEDS ORDERED: MAGNESIUM CITRATE 300 ML BOTTLE PO PRN (12:33)
[2020-07-01] MEDS ORDERED: IBUPROFEN 400 MG TABLET (FP) PO PRN (12:33)
[2020-07-01] MEDS ORDERED: LORazepam 1 MG TABLET PO PRN (12:33)
[2020-07-01] MEDS ORDERED: MENTHOL/PHENOL 1 EACH UD MM PRN (12:33)
[2020-07-01] MEDS: LORazepam 2 MG TABLET PO SCH ×3 (13:49→22:08)
[2020-07-01] MEDS: PRENATAL VITAMINS W/ FOLIC ACID TABLET (FP) PO SCH (13:49)
[2020-07-01] MEDS: hydrOXYzine PAMOATE 25 MG CAPSULE (FP) PO SCH ×3 (13:50→22:09)
[2020-07-01 17:00] LABS: HEMATOCRIT 45.9 % (35.4-49); HEMOGLOBIN 15.8 GM/dL (11.7-16.9); MCH 34.1 pg (25.7-33.7); MCHC 34.6 g/dl (32.0-35.9); MEAN CELL VOLUME 98.8 fl (80-96); PLATELET COUNT 216 K/MM3 (134-434); RBC 4.64 M/mm3 (4.00-5.60); RDW 16.7 % (11.9-15.9); WHITE BLOOD COUNT 5.6 K/mm3 (4.0-10.0)
[2020-07-01 17:14] LABS: ALBUMIN 4.1 g/dl (3.4-5.0); BLOOD UREA NITROGEN 6.2 mg/dL (7-18)
[2020-07-01 17:20] LABS: BILIRUBIN,TOTAL 1.2 mg/dL (0.2-1); TOT PROT 8.2 g/dl (6.4-8.2)
[2020-07-01] MEDS: MELATONIN 5 MG TABLETS PO SCH (22:07)
[2020-07-01] MEDS: THIAMINE HCL 100 MG TABLET (FP) PO SCH (22:07)
[2020-07-02] MEDS: LORazepam 2 MG TABLET PO SCH ×4 (06:17→22:46)
[2020-07-02] MEDS: hydrOXYzine PAMOATE 25 MG CAPSULE (FP) PO SCH ×5 (06:17→22:45)
[2020-07-02] MEDS: PRENATAL VITAMINS W/ FOLIC ACID TABLET (FP) PO SCH (10:21)
[2020-07-02] MEDS: MELATONIN 5 MG TABLETS PO SCH (22:45)
[2020-07-02] MEDS: THIAMINE HCL 100 MG TABLET (FP) PO SCH (22:46)
[2020-07-03] MEDS: hydrOXYzine PAMOATE 25 MG CAPSULE (FP) PO SCH ×5 (05:12→22:59)
[2020-07-03] MEDS: LORazepam 1 MG TABLET PO SCH ×4 (05:12→22:59)
[2020-07-03] MEDS: PRENATAL VITAMINS W/ FOLIC ACID TABLET (FP) PO SCH (10:48)
[2020-07-03 13:03] LABS: BLOOD UREA NITROGEN 6.7 mg/dL (7-18); CALCIUM 8.9 mg/dL (8.5-10.1)
[2020-07-03 13:04] LABS: ALBUMIN 3.4 g/dl (3.4-5.0)
[2020-07-03 13:08] LABS: TOT PROT 6.8 g/dl (6.4-8.2)
[2020-07-03 13:09] LABS: BILIRUBIN,TOTAL 1.6 mg/dL (0.2-1)
[2020-07-03] MEDS: MELATONIN 5 MG TABLETS PO SCH (22:59)
[2020-07-03] MEDS: THIAMINE HCL 100 MG TABLET (FP) PO SCH (22:59)
[2020-07-04] MEDS ORDERED: LORazepam 0.5 MG TABLET PO PRN
[2020-07-04] MEDS: hydrOXYzine PAMOATE 25 MG CAPSULE (FP) PO SCH ×5 (05:18→21:53)
[2020-07-04] MEDS: LORazepam 0.5 MG TABLET PO SCH ×4 (05:18→22:16)
[2020-07-04] MEDS: PRENATAL VITAMINS W/ FOLIC ACID TABLET (FP) PO SCH (09:49)
[2020-07-04 14:06] LABS: SARS-CoV-2 NAA Not Detected (Not Detected)
[2020-07-04] MEDS: THIAMINE HCL 100 MG TABLET (FP) PO SCH (21:52)
[2020-07-04] MEDS: MELATONIN 5 MG TABLETS PO SCH (21:53)
[2020-07-05] MEDS ORDERED: LORazepam 0.5 MG TABLET PO ONE (05:00)
[2020-07-05] MEDS: hydrOXYzine PAMOATE 25 MG CAPSULE (FP) PO SCH (05:15)
[2020-07-05 06:21] VITALS: BP 121/75; PULSE 70; TEMP 97.7
== END 2020-07-05 09:00 | disposition home or self-care (01) | DRG 897 ==
LOC: YASAS 10:42 → Y3N 12:49
PROVIDERS: ADMIT Allergy & Immunology; ATTEND Allergy & Immunology
PROC: HZ2ZZZZ Detoxification Services for Substance Abuse Treatment (ICD-10-PCS; principal; 2020-07-01)
DX: F10.230 Alcohol dependence with withdrawal, uncomplicated (principal); F17.210 Nicotine dependence, cigarettes, uncomplicated; F10.24 Alcohol dependence with alcohol-induced mood disorder; F41.9 Anxiety disorder, unspecified; F32.9 Major depressive disorder, single episode, unspecified; E78.5 Hyperlipidemia, unspecified; I10 Essential (primary) hypertension; K70.10 Alcoholic hepatitis without ascites; M10.9 Gout, unspecified; R73.03 Prediabetes; R74.01 Elevation of levels of liver transaminase levels; R79.89 Other specified abnormal findings of blood chemistry; Z87.891 Personal history of nicotine dependence; Z88.8 Allergy status to other drugs, medicaments and biological substances
CPT/HCPCS: 36415; 80053; 85027; 86780; 93005; 93010; C9803; U0003; U0005

== ENCOUNTER 2020-07-06 08:54 | Emergency (ER) | payer OTHER ==
[2020-07-06 08:58] VITALS: BMI 29.0
[2020-07-06] MEDS ORDERED: chlordiazePOXIDE HCL 25 MG CAPSULE PO ONE (09:32)
[2020-07-06] MEDS ORDERED: chlordiazePOXIDE HCL 25 MG CAPSULE ONE (09:35)
[2020-07-06 10:11] LABS: BASO % 0.8 % (0-2.0); EOS % 2.5 % (0-4.5); HEMOGLOBIN 15.3 GM/dL (11.7-16.9); LYMPH % 25.5 % (8-40); MCH 34.2 pg (25.7-33.7); MCHC 34.7 g/dl (32.0-35.9); MEAN CELL VOLUME 98.5 fl (80-96); MEAN PLT VOLUME 8.7 fl (7.5-11.1); MONO % 10.1 % (3.8-10.2); NEUT % 61.1 % (42.8-82.8); PLATELET COUNT 209 K/MM3 (134-434); RBC 4.47 M/mm3 (4.00-5.60)
[2020-07-06 10:33] LABS: CHLORIDE 105 mmol/L (98-107); SODIUM 139 mmol/L (136-145)
[2020-07-06 10:35] LABS: CALCIUM 9.1 mg/dL (8.5-10.1)
[2020-07-06 10:36] LABS: ALBUMIN 3.9 g/dl (3.4-5.0); ANION GAP 7 MMOL/L (8-16); BLOOD UREA NITROGEN 6.7 mg/dL (7-18); CO2 27 mmol/L (21-32); GLUCOSE,RANDOM 113 mg/dL (74-106)
[2020-07-06 10:39] LABS: SGOT/AST 71 U/L (15-37); SGPT/ALT 57 U/L (13-61)
[2020-07-06 10:41] LABS: BILIRUBIN,TOTAL 0.5 mg/dL (0.2-1); TOT PROT 7.8 g/dl (6.4-8.2)
[2020-07-06 10:42] LABS: ALK PHOS 77 U/L (45-117)
[2020-07-06 13:14] VITALS: BP 131/91; PULSE 78; TEMP 98.7
== END 2020-07-06 13:14 | disposition home or self-care (01) ==
LOC: JER 08:54
DX: R51.9 Headache, unspecified (principal); F10.14 Alcohol abuse with alcohol-induced mood disorder; F41.9 Anxiety disorder, unspecified
CPT/HCPCS: 36415; 71046-TC-FY; 80053; 82550; 84443; 84484; 85025; 93005; 93010; 99285-25

== ENCOUNTER 2021-01-04 09:32 | Emergency (ER) | payer OTHER ==
[2021-01-04 09:46] VITALS: BMI 30.9
[2021-01-04] MEDS ORDERED: SODIUM CHLORIDE 0.9% 500 ML INFUS.BAG IV ONE (10:11)
[2021-01-04] MEDS ORDERED: METOCLOPRAMIDE HCL INJECTION 10 MG/2 ML VIAL IVPUSH ONE (10:12)
[2021-01-04] MEDS ORDERED: KETOROLAC TROMETHAMINE 30 MG/1 ML VIAL IVPB ONE (10:12)
[2021-01-04] MEDS ORDERED: METOCLOPRAMIDE HCL INJECTION 10 MG/2 ML VIAL ONE (10:25)
[2021-01-04] MEDS ORDERED: KETOROLAC TROMETHAMINE 30 MG/1 ML VIAL ONE (10:25)
[2021-01-04 11:45] LABS: BASO % 0.9 % (0-2.0); EOS % 7.1 % (0-4.5); HEMOGLOBIN 16.1 GM/dL (11.7-16.9); LYMPH % 25.2 % (8-40); MCH 30.8 pg (25.7-33.7); MCHC 34.2 g/dl (32.0-35.9); MEAN CELL VOLUME 90.1 fl (80-96); MEAN PLT VOLUME 8.3 fl (7.5-11.1); MONO % 6.6 % (3.8-10.2); NEUT % 60.2 % (42.8-82.8); PLATELET COUNT 270 10^3/uL (134-434); RBC 5.22 M/mm3 (4.00-5.60); RDW 14.4 % (11.9-15.9); WHITE BLOOD COUNT 7.7 K/mm3 (4.0-10.0)
[2021-01-04 12:41] LABS: ALBUMIN 4.1 g/dl (3.4-5.0); BILIRUBIN,TOTAL 0.8 mg/dL (0.2-1); BLOOD UREA NITROGEN 7.9 mg/dL (7-18); CALCIUM 9.3 mg/dL (8.5-10.1); TOT PROT 7.8 g/dl (6.4-8.2)
[2021-01-04 13:15] VITALS: BP 137/91; PULSE 73; TEMP 97.1
== END 2021-01-04 13:26 | disposition home or self-care (01) ==
LOC: JER 09:32
PROC: 3E0333Z Introduction of Anti-inflammatory into Peripheral Vein, Percutaneous Approach (ICD-10-PCS; principal; 2021-01-04)
PROC: 3E033GC Introduction of Other Therapeutic Substance into Peripheral Vein, Percutaneous Approach (ICD-10-PCS; 2021-01-04)
DX: R51.9 Headache, unspecified (principal)
CPT/HCPCS: 36415; 70450-TC; 80053; 85025; 99285-25

== ENCOUNTER 2021-06-14 09:12 | Inpatient (IN) | payer OTHER ==
[2021-06-14] MEDS ORDERED: ONDANSETRON *ODT* 4 MG TABLET SL PRN (09:53)
[2021-06-14] MEDS ORDERED: ACETAMINOPHEN 325 MG TABLET (FP) PO PRN ×2 (09:53)
[2021-06-14] MEDS ORDERED: MAGNESIUM CITRATE 300 ML BOTTLE PO PRN (09:53)
[2021-06-14] MEDS ORDERED: IBUPROFEN 400 MG TABLET (FP) PO PRN (09:53)
[2021-06-14] MEDS ORDERED: diazePAM 5 MG TABLET PO PRN (09:53)
[2021-06-14] MEDS ORDERED: BENZOCAINE/MENTHOL (CHLORASEPTIC ) LOZENGE MM PRN (09:53)
[2021-06-14] MEDS ORDERED: MAGNESIUM HYDROX 2400MG/30ML ORAL SUSPENSION 30 ML CUP PO PRN (09:53)
[2021-06-14] MEDS ORDERED: DICYCLOMINE HCL 10 MG CAPSULE PO PRN (09:53)
[2021-06-14] MEDS ORDERED: LOPERAMIDE HCL 2 MG CAPSULE PO PRN (09:53)
[2021-06-14] MEDS ORDERED: BISMUTH SUBSALICYLATE 262 MG/15 ML BTL PO PRN (09:53)
[2021-06-14] MEDS ORDERED: MAG HYDROX/AL HYDROX/SIMETH 30 ML UNIT-DOSE CUP PO PRN (09:53)
[2021-06-14 10:05] VITALS: BMI 29.0
[2021-06-14] MEDS ORDERED: diazePAM 5 MG TABLET ONE (11:05)
[2021-06-14] MEDS ORDERED: hydrOXYzine PAMOATE 25 MG CAPSULE (FP) PO ONE (11:05)
[2021-06-14] MEDS: diazePAM 5 MG TABLET PO SCH ×3 (11:10→22:34)
[2021-06-14] MEDS: hydrOXYzine PAMOATE 25 MG CAPSULE (FP) PO SCH ×4 (11:10→22:34)
[2021-06-14] MEDS: PRENATAL VITAMINS W/ FOLIC ACID TABLET (FP) PO SCH (12:41)
[2021-06-14] MEDS: METHOCARBAMOL 500 MG TABLET PO PRN (12:41)
[2021-06-14 14:08] LABS: CALCIUM 9.1 mg/dL (8.5-10.1)
[2021-06-14 14:09] LABS: ALBUMIN 4.1 g/dl (3.4-5.0); BLOOD UREA NITROGEN 3.7 mg/dL (7-18)
[2021-06-14 14:12] LABS: HEMATOCRIT 38.6 % (35.4-49); HEMOGLOBIN 13.5 GM/dL (11.7-16.9); MCH 36.3 pg (25.7-33.7); MCHC 35.1 g/dl (32.0-35.9); MEAN CELL VOLUME 103.5 fl (80-96); MEAN PLT VOLUME 9.5 fl (7.5-11.1); PLATELET COUNT 119 10^3/uL (134-434); RBC 3.73 M/mm3 (4.00-5.60); RDW 14.5 % (11.9-15.9); WHITE BLOOD COUNT 5.7 K/mm3 (4.0-10.0)
[2021-06-14 14:13] LABS: BILIRUBIN,TOTAL 2.4 mg/dL (0.2-1)
[2021-06-14 14:14] LABS: TOT PROT 7.8 g/dl (6.4-8.2)
[2021-06-14] MEDS: THIAMINE HCL 100 MG TABLET (FP) PO SCH (22:34)
[2021-06-14] MEDS: MELATONIN 5 MG TABLETS PO SCH (22:35)
[2021-06-15] MEDS: diazePAM 5 MG TABLET PO SCH ×2 (05:53→10:09)
[2021-06-15] MEDS: hydrOXYzine PAMOATE 25 MG CAPSULE (FP) PO SCH ×5 (05:53→22:27)
[2021-06-15] MEDS: METHOCARBAMOL 500 MG TABLET PO PRN (10:09)
[2021-06-15] MEDS: PRENATAL VITAMINS W/ FOLIC ACID TABLET (FP) PO SCH (10:09)
[2021-06-15] MEDS: THIAMINE HCL 100 MG TABLET (FP) PO SCH (22:27)
[2021-06-15] MEDS: MELATONIN 5 MG TABLETS PO SCH (22:28)
[2021-06-15] MEDS ORDERED: diazePAM 5 MG TABLET PO SCH (23:00)
[2021-06-16] MEDS ORDERED: diazePAM 5 MG TABLET PO SCH (06:00)
[2021-06-16] MEDS: hydrOXYzine PAMOATE 25 MG CAPSULE (FP) PO SCH ×5 (07:13→22:35)
[2021-06-16] MEDS: PRENATAL VITAMINS W/ FOLIC ACID TABLET (FP) PO SCH (10:17)
[2021-06-16] MEDS: diazePAM 5 MG TABLET PO SCH ×2 (10:17→22:35)
[2021-06-16 14:09] LABS: SARS-CoV-2 NAA Not Detected (Not Detected)
[2021-06-16] MEDS: MELATONIN 5 MG TABLETS PO SCH (22:35)
[2021-06-16] MEDS: THIAMINE HCL 100 MG TABLET (FP) PO SCH (22:35)
[2021-06-17] MEDS ORDERED: diazePAM 5 MG TABLET PO ONE (06:00)
[2021-06-17] MEDS ORDERED: diazePAM 5 MG TABLET PO SCH (06:00)
[2021-06-17] MEDS: hydrOXYzine PAMOATE 25 MG CAPSULE (FP) PO SCH ×2 (06:41→09:43)
[2021-06-17 09:27] VITALS: BP 122/90; PULSE 80; TEMP 97.3
[2021-06-17] MEDS: PRENATAL VITAMINS W/ FOLIC ACID TABLET (FP) PO SCH (09:43)
[2021-06-18] MEDS ORDERED: diazePAM 5 MG TABLET PO ONE (06:00)
== END 2021-06-17 09:38 | disposition home or self-care (01) | DRG 897 ==
LOC: YASAS 09:12 → Y6N 10:51
PROVIDERS: ADMIT Allergy & Immunology; ATTEND Allergy & Immunology
PROC: HZ2ZZZZ Detoxification Services for Substance Abuse Treatment (ICD-10-PCS; principal; 2021-06-14)
DX: F10.230 Alcohol dependence with withdrawal, uncomplicated (principal); F10.280 Alcohol dependence with alcohol-induced anxiety disorder; F10.282 Alcohol dependence with alcohol-induced sleep disorder; F10.24 Alcohol dependence with alcohol-induced mood disorder; F25.9 Schizoaffective disorder, unspecified; F51.05 Insomnia due to other mental disorder; I10 Essential (primary) hypertension; M10.9 Gout, unspecified; E78.5 Hyperlipidemia, unspecified; R73.03 Prediabetes; Z87.891 Personal history of nicotine dependence; Z88.8 Allergy status to other drugs, medicaments and biological substances
CPT/HCPCS: 36415; 80053; 82962; 85027; 86780; 87811; C9803-CS; U0003; U0005

== ENCOUNTER 2022-04-23 05:47 | Emergency (ER) | payer OTHER ==
[2022-04-23 05:53] VITALS: BMI 27.3
[2022-04-23] MEDS ORDERED: chlordiazePOXIDE HCL 25 MG CAPSULE PO ONE (06:41)
[2022-04-23] MEDS ORDERED: LACTATED RINGERS SOLUTION 1,000 ML/1,000 ML INFUS.BAG IV SCH (06:45)
[2022-04-23] MEDS ORDERED: chlordiazePOXIDE HCL 25 MG CAPSULE ONE (07:47)
[2022-04-23 08:07] LABS: BASO % 0.6 % (0-2.0); EOS % 0.7 % (0-4.5); HEMATOCRIT 53.2 % (35.4-49); HEMOGLOBIN 18.1 GM/dL (11.7-16.9); LYMPH % 18.9 % (8-40); MCH 34.2 pg (25.7-33.7); MCHC 33.9 g/dl (32.0-35.9); MEAN CELL VOLUME 100.7 fl (80-96); MEAN PLT VOLUME 7.7 fl (7.5-11.1); MONO % 8.4 % (3.8-10.2); NEUT % 71.4 % (42.8-82.8); PLATELET COUNT 349 10^3/uL (134-434); RBC 5.28 M/mm3 (4.00-5.60); RDW 16.5 % (11.9-15.9); WHITE BLOOD COUNT 7.8 K/mm3 (4.0-10.0)
[2022-04-23 08:38] LABS: CHLORIDE 100 mmol/L (98-107); SODIUM 133 mmol/L (136-145)
[2022-04-23 08:40] LABS: CALCIUM 8.9 mg/dL (8.5-10.1)
[2022-04-23 08:41] LABS: ALBUMIN 4.1 g/dl (3.4-5.0); ANION GAP 6 MMOL/L (8-16); BLOOD UREA NITROGEN 5.1 mg/dL (7-18); CO2 27 mmol/L (21-32); GLUCOSE,RANDOM 123 mg/dL (74-106); MAGNESIUM 1.8 mg/dL (1.8-2.4)
[2022-04-23 08:44] LABS: CREATININE 1.2 mg/dL (0.55-1.3); SGOT/AST 56 U/L (15-37); SGPT/ALT 50 U/L (13-61)
[2022-04-23 08:45] LABS: BILIRUBIN,TOTAL 0.9 mg/dL (0.2-1)
[2022-04-23 08:46] LABS: TOT PROT 8.5 g/dl (6.4-8.2)
[2022-04-23 08:47] LABS: ALK PHOS 103 U/L (45-117)
[2022-04-23 10:12] VITALS: BP 130/97; PULSE 87; RESP 19; TEMP 98
== END 2022-04-23 10:10 | disposition home or self-care (01) ==
LOC: JER 05:47
PROC: 3E0337Z Introduction of Electrolytic and Water Balance Substance into Peripheral Vein, Percutaneous Approach (ICD-10-PCS; principal; 2022-04-23)
PROC: 3E0337Z Introduction of Electrolytic and Water Balance Substance into Peripheral Vein, Percutaneous Approach (ICD-10-PCS; 2022-04-23)
PROC: 3E0337Z Introduction of Electrolytic and Water Balance Substance into Peripheral Vein, Percutaneous Approach (ICD-10-PCS; 2022-04-23)
DX: F10.930 Alcohol use, unspecified with withdrawal, uncomplicated (principal); Y90.0 Blood alcohol level of less than 20 mg/100 ml
CPT/HCPCS: 36415; 80053; 80307; 83735; 85025; 93005; 93010; 99284-25

== ENCOUNTER 2022-06-11 10:18 | Inpatient (IN) | payer OTHER ==
[2022-06-11 10:40] VITALS: BMI 28.0
[2022-06-11] MEDS ORDERED: LORazepam 2 MG/ML SDV VIAL IM ONE (10:49)
[2022-06-11] MEDS ORDERED: METHOCARBAMOL 500 MG TABLET PO PRN (11:05)
[2022-06-11] MEDS ORDERED: MAGNESIUM HYDROX 2400MG/30ML ORAL SUSPENSION 30 ML CUP PO PRN (11:05)
[2022-06-11] MEDS ORDERED: NALOXONE HCL (KLOXXADO) 8 MG SPRAY NS PRN (11:05)
[2022-06-11] MEDS ORDERED: BISMUTH SUBSALICYLATE 524 MG/30 ML PO PRN (11:05)
[2022-06-11] MEDS ORDERED: hydrOXYzine PAMOATE 25 MG CAPSULE (FP) PO PRN (11:05)
[2022-06-11] MEDS ORDERED: chlordiazePOXIDE HCL 25 MG CAPSULE PO PRN (11:05)
[2022-06-11] MEDS ORDERED: NALOXONE HCL 0.4 MG/ML VIAL IM PRN (11:05)
[2022-06-11] MEDS ORDERED: BENZOCAINE/MENTHOL (CHLORASEPTIC ) LOZENGE MM PRN (11:05)
[2022-06-11] MEDS ORDERED: MAG HYDROX/AL HYDROX/SIMETH 30 ML UNIT-DOSE CUP PO PRN (11:05)
[2022-06-11] MEDS ORDERED: IBUPROFEN 400 MG TABLET (FP) PO PRN (11:05)
[2022-06-11] MEDS ORDERED: LOPERAMIDE HCL 2 MG CAPSULE PO PRN (11:05)
[2022-06-11] MEDS ORDERED: DICYCLOMINE HCL 10 MG CAPSULE PO PRN (11:05)
[2022-06-11] MEDS ORDERED: guaiFENesin 600 MG TABLET.ER (FP) PO PRN (11:05)
[2022-06-11] MEDS ORDERED: NICOTINE POLACRILEX 2 MG GUM BUC PRN (11:05)
[2022-06-11] MEDS ORDERED: ACETAMINOPHEN 325 MG TABLET (FP) PO PRN (11:05)
[2022-06-11] MEDS ORDERED: POLYETHYLENE GLYCOL (HEALTHYLAX) 3350 17 GM PACKET PO PRN (11:05)
[2022-06-11] MEDS ORDERED: BENZONATATE 200 MG CAPSULE PO PRN (11:05)
[2022-06-11] MEDS ORDERED: ONDANSETRON *ODT* 4 MG TABLET SL PRN (11:05)
[2022-06-11] MEDS ORDERED: chlordiazePOXIDE HCL 25 MG CAPSULE ONE (12:02)
[2022-06-11] MEDS: chlordiazePOXIDE HCL 25 MG CAPSULE PO SCH ×2 (17:29→22:30)
[2022-06-11] MEDS: THIAMINE HCL 100 MG TABLET (FP) PO SCH (22:30)
[2022-06-11] MEDS: MELATONIN 5 MG TABLETS PO SCH (22:30)
[2022-06-12] MEDS: chlordiazePOXIDE HCL 25 MG CAPSULE PO SCH ×4 (05:10→22:10)
[2022-06-12 09:56] LABS: HEMATOCRIT 46.2 % (35.4-49); HEMOGLOBIN 16.1 GM/dL (11.7-16.9); MCH 36.3 pg (25.7-33.7); MCHC 34.8 g/dl (32.0-35.9); MEAN CELL VOLUME 104.2 fl (80-96); MEAN PLT VOLUME 8.8 fl (7.5-11.1); PLATELET COUNT 177 10^3/uL (134-434); POTASSIUM 3.7 mmol/L (3.5-5.1); RBC 4.43 M/mm3 (4.00-5.60); RDW 15.4 % (11.9-15.9); WHITE BLOOD COUNT 4.4 K/mm3 (4.0-10.0)
[2022-06-12 09:59] LABS: BLOOD UREA NITROGEN 6.6 mg/dL (7-18); CALCIUM 8.7 mg/dL (8.5-10.1)
[2022-06-12 10:04] LABS: BILIRUBIN,TOTAL 2.1 mg/dL (0.2-1); TOT PROT 6.3 g/dl (6.4-8.2)
[2022-06-12] MEDS: PRENATAL VITAMINS W/ FOLIC ACID TABLET (FP) PO SCH (10:07)
[2022-06-12] MEDS: IBUPROFEN 600 MG TABLET (FP) PO PRN ×2 (10:07→22:19)
[2022-06-12] MEDS: MELATONIN 5 MG TABLETS PO SCH (22:24)
[2022-06-12] MEDS: THIAMINE HCL 100 MG TABLET (FP) PO SCH (22:24)
[2022-06-13] MEDS: chlordiazePOXIDE HCL 25 MG CAPSULE PO SCH ×4 (05:10→22:23)
[2022-06-13] MEDS: PRENATAL VITAMINS W/ FOLIC ACID TABLET (FP) PO SCH (10:11)
[2022-06-13] MEDS ORDERED: MELATONIN 5 MG TABLETS PO PRN (14:25)
[2022-06-13] MEDS: THIAMINE HCL 100 MG TABLET (FP) PO SCH (22:21)
[2022-06-14] MEDS ORDERED: chlordiazePOXIDE HCL 10 MG CAPSULE PO PRN
[2022-06-14] MEDS ORDERED: chlordiazePOXIDE HCL 10 MG CAPSULE PO SCH ×2 (05:00)
[2022-06-14 09:42] VITALS: RESP 17
[2022-06-14] MEDS: PRENATAL VITAMINS W/ FOLIC ACID TABLET (FP) PO SCH (10:24)
[2022-06-14 13:35] VITALS: BP 129/96; PULSE 104; TEMP 69.9
[2022-06-15] MEDS ORDERED: chlordiazePOXIDE HCL 10 MG CAPSULE PO SCH (05:00)
[2022-06-15] MEDS ORDERED: chlordiazePOXIDE HCL 10 MG CAPSULE PO ONE (05:00)
[2022-06-16] MEDS ORDERED: chlordiazePOXIDE HCL 10 MG CAPSULE PO ONE (05:00)
== END 2022-06-14 13:35 | disposition home or self-care (01) | DRG 897 ==
LOC: YASAS 10:18 → Y6N 11:33
PROVIDERS: ADMIT Allergy & Immunology; ATTEND Surgery
PROC: HZ2ZZZZ Detoxification Services for Substance Abuse Treatment (ICD-10-PCS; principal; 2022-06-11)
DX: F10.230 Alcohol dependence with withdrawal, uncomplicated (principal); F17.210 Nicotine dependence, cigarettes, uncomplicated; F10.280 Alcohol dependence with alcohol-induced anxiety disorder; F10.282 Alcohol dependence with alcohol-induced sleep disorder; F41.9 Anxiety disorder, unspecified; F32.A Depression, unspecified; I10 Essential (primary) hypertension; M10.9 Gout, unspecified; R94.5 Abnormal results of liver function studies; R73.03 Prediabetes; Z62.810 Personal history of physical and sexual abuse in childhood; Z88.8 Allergy status to other drugs, medicaments and biological substances
CPT/HCPCS: 36415; 80053; 85027; 86780; 87811; 93005; 93010; C9803-CS; U0003; U0005

== ENCOUNTER 2022-07-10 11:42 | Emergency (ER) | payer OTHER ==
[2022-07-10 11:50] VITALS: TEMP 97.8; BMI 27.4
[2022-07-10] MEDS ORDERED: SODIUM CHLORIDE 1,000 ML IV STA (12:01)
[2022-07-10] MEDS ORDERED: diazePAM CARPU-JECT 10 MG/2 ML DISP.SYRIN IVPUSH ONE ×2 (12:12→12:44)
[2022-07-10] MEDS ORDERED: diazePAM CARPU-JECT 10 MG/2 ML DISP.SYRIN ONE ×2 (12:27→12:46)
[2022-07-10 12:40] VITALS: RESP 18
[2022-07-10 12:40] LABS: BASO % 0.7 % (0-2.0); EOS % 1.2 % (0-4.5); HEMATOCRIT 54.1 % (35.4-49); HEMOGLOBIN 18.6 GM/dL (11.7-16.9); LYMPH % 23.1 % (8-40); MCH 34.5 pg (25.7-33.7); MCHC 34.4 g/dl (32.0-35.9); MEAN CELL VOLUME 100.3 fl (80-96); MONO % 7.6 % (3.8-10.2); NEUT % 67.4 % (42.8-82.8); PLATELET COUNT 202 10^3/uL (134-434)
[2022-07-10 12:46] LABS: PROTHROMBIN TIME (PATIENT) 11.6 SEC (9.7-13.0)
[2022-07-10 12:49] LABS: ACTIVATED PTT 31.3 SECONDS (25.2-36.5)
[2022-07-10 12:57] LABS: POTASSIUM 4.3 mmol/L (3.5-5.1)
[2022-07-10 12:59] LABS: CALCIUM 9.5 mg/dL (8.5-10.1)
[2022-07-10 13:00] LABS: ALBUMIN 3.9 g/dl (3.4-5.0); BLOOD UREA NITROGEN 5.8 mg/dL (7-18); MAGNESIUM 1.9 mg/dL (1.8-2.4)
[2022-07-10 13:03] LABS: CREATININE 1.1 mg/dL (0.55-1.3)
[2022-07-10 13:05] LABS: TOT PROT 8.2 g/dl (6.4-8.2)
[2022-07-10 15:21] VITALS: BP 138/66; PULSE 86
== END 2022-07-10 15:21 | disposition home or self-care (01) ==
LOC: JER 11:42
PROC: 3E033GC Introduction of Other Therapeutic Substance into Peripheral Vein, Percutaneous Approach (ICD-10-PCS; principal; 2022-07-10)
PROC: 3E033GC Introduction of Other Therapeutic Substance into Peripheral Vein, Percutaneous Approach (ICD-10-PCS; 2022-07-10)
DX: R07.89 Other chest pain (principal); R25.1 Tremor, unspecified; R06.02 Shortness of breath; R19.7 Diarrhea, unspecified; F10.930 Alcohol use, unspecified with withdrawal, uncomplicated; Y90.0 Blood alcohol level of less than 20 mg/100 ml; Z20.822 Contact with and (suspected) exposure to COVID-19
CPT/HCPCS: 0241U-QW; 36415; 71045-TC-FY; 80053; 80307; 82550; 83735; 84484; 85025; 85610; 85730; 93005; 93010; 99285-25

== ENCOUNTER 2022-07-24 10:59 | Inpatient (IN) | payer OTHER ==
[2022-07-24 11:40] VITALS: BMI 28.0
[2022-07-24] MEDS ORDERED: ACETAMINOPHEN 325 MG TABLET (FP) PO PRN (12:14)
[2022-07-24] MEDS ORDERED: LORazepam 1 MG TABLET PO PRN (12:14)
[2022-07-24] MEDS ORDERED: hydrOXYzine PAMOATE 25 MG CAPSULE (FP) PO PRN (12:14)
[2022-07-24] MEDS ORDERED: POLYETHYLENE GLYCOL (HEALTHYLAX) 3350 17 GM PACKET PO PRN (12:14)
[2022-07-24] MEDS ORDERED: BISMUTH SUBSALICYLATE 262 MG/15 ML BTL PO PRN (12:14)
[2022-07-24] MEDS ORDERED: IBUPROFEN 600 MG TABLET (FP) PO PRN (12:14)
[2022-07-24] MEDS ORDERED: IBUPROFEN 400 MG TABLET (FP) PO PRN (12:14)
[2022-07-24] MEDS ORDERED: MAG HYDROX/AL HYDROX/SIMETH 30 ML UNIT-DOSE CUP PO PRN (12:14)
[2022-07-24] MEDS ORDERED: BENZOCAINE/MENTHOL (CHLORASEPTIC ) LOZENGE MM PRN (12:14)
[2022-07-24] MEDS ORDERED: NICOTINE 10 MG CARTRIDGE (INHALER) IH PRN (12:14)
[2022-07-24] MEDS ORDERED: ONDANSETRON *ODT* 4 MG TABLET SL PRN (12:14)
[2022-07-24] MEDS ORDERED: LOPERAMIDE HCL 2 MG CAPSULE PO PRN (12:14)
[2022-07-24] MEDS ORDERED: NALOXONE HCL 0.4 MG/ML VIAL IM PRN (12:14)
[2022-07-24] MEDS ORDERED: MAGNESIUM HYDROX 2400MG/30ML ORAL SUSPENSION 30 ML CUP PO PRN (12:14)
[2022-07-24] MEDS ORDERED: BENZONATATE 200 MG CAPSULE PO PRN (12:14)
[2022-07-24] MEDS ORDERED: NALOXONE HCL (KLOXXADO) 8 MG SPRAY NS PRN (12:14)
[2022-07-24] MEDS ORDERED: DICYCLOMINE HCL 10 MG CAPSULE PO PRN (12:14)
[2022-07-24] MEDS ORDERED: guaiFENesin 600 MG TABLET.ER (FP) PO PRN (12:14)
[2022-07-24] MEDS ORDERED: METHOCARBAMOL 500 MG TABLET PO PRN (12:14)
[2022-07-24] MEDS ORDERED: LORazepam 2 MG TABLET PO ONE (12:20)
[2022-07-24] MEDS ORDERED: LORazepam 2 MG TABLET ONE (12:37)
[2022-07-24] MEDS ORDERED: PRENATAL VITAMINS W/ FOLIC ACID TABLET (FP) PO ONE (12:38)
[2022-07-24] MEDS: PRENATAL VITAMINS W/ FOLIC ACID TABLET (FP) PO SCH (12:44)
[2022-07-24] MEDS: LORazepam 2 MG TABLET PO SCH ×3 (12:46→22:19)
[2022-07-24 16:30] LABS: HEMATOCRIT 53.1 % (35.4-49); MEAN PLT VOLUME 8.4 fl (7.5-11.1); PLATELET COUNT 180 10^3/uL (134-434); RBC 5.15 M/mm3 (4.00-5.60); RDW 19.7 % (11.9-15.9); WHITE BLOOD COUNT 6.7 K/mm3 (4.0-10.0)
[2022-07-24 16:38] LABS: POTASSIUM 4.3 mmol/L (3.5-5.1)
[2022-07-24 16:40] LABS: ALBUMIN 3.5 g/dl (3.4-5.0); BLOOD UREA NITROGEN 4.5 mg/dL (7-18)
[2022-07-24 16:43] LABS: CREATININE 0.9 mg/dL (0.55-1.3)
[2022-07-24 16:45] LABS: TOT PROT 7.4 g/dl (6.4-8.2)
[2022-07-24] MEDS: THIAMINE HCL 100 MG TABLET (FP) PO SCH (22:19)
[2022-07-24] MEDS: MELATONIN 5 MG TABLETS PO SCH (22:20)
[2022-07-25] MEDS: LORazepam 2 MG TABLET PO SCH ×4 (05:43→22:29)
[2022-07-25] MEDS: NICOTINE 14 MG/24 HOURS TOPICAL PATCH TD SCH (10:28)
[2022-07-25] MEDS: PRAZOSIN HCL 1 MG CAPSULE PO SCH (10:29)
[2022-07-25] MEDS: LACTULOSE 20 GM/30 ML UDC (FOR ORAL USE ONLY) PO SCH ×4 (10:29→22:38)
[2022-07-25] MEDS: PRENATAL VITAMINS W/ FOLIC ACID TABLET (FP) PO SCH (10:29)
[2022-07-25] MEDS: THIAMINE HCL 100 MG TABLET (FP) PO SCH (22:28)
[2022-07-25] MEDS: MELATONIN 5 MG TABLETS PO SCH (22:28)
[2022-07-26] MEDS: LORazepam 1 MG TABLET PO SCH ×4 (05:36→22:30)
[2022-07-26] MEDS: NICOTINE 14 MG/24 HOURS TOPICAL PATCH TD SCH (10:17)
[2022-07-26] MEDS: PRENATAL VITAMINS W/ FOLIC ACID TABLET (FP) PO SCH (10:17)
[2022-07-26] MEDS: PRAZOSIN HCL 1 MG CAPSULE PO SCH (10:18)
[2022-07-26] MEDS: LACTULOSE 20 GM/30 ML UDC (FOR ORAL USE ONLY) PO SCH ×4 (10:18→22:30)
[2022-07-26 11:26] LABS: BASO % 0.4 % (0-2.0); EOS % 4.8 % (0-4.5); HEMATOCRIT 47.7 % (35.4-49); MCH 35.3 pg (25.7-33.7); MCHC 33.5 g/dl (32.0-35.9); MEAN CELL VOLUME 105.3 fl (80-96); MEAN PLT VOLUME 9.2 fl (7.5-11.1); MONO % 9.5 % (3.8-10.2); NEUT % 63.3 % (42.8-82.8); PLATELET COUNT 174 10^3/uL (134-434); RBC 4.53 M/mm3 (4.00-5.60); RDW 20.7 % (11.9-15.9); WHITE BLOOD COUNT 6.4 K/mm3 (4.0-10.0)
[2022-07-26] MEDS ORDERED: diphenhydrAMINE HCL 50 MG CAPSULE PO PRN (12:04)
[2022-07-26] MEDS ORDERED: LORATADINE 10 MG TABLET PO SCH (12:15)
[2022-07-26 14:13] LABS: ANISOCYTOSIS 1+; MACROCYTOSIS 1+
[2022-07-26 17:57] VITALS: RESP 18
[2022-07-26] MEDS: MELATONIN 5 MG TABLETS PO SCH (22:30)
[2022-07-26] MEDS: THIAMINE HCL 100 MG TABLET (FP) PO SCH (22:30)
[2022-07-27] MEDS ORDERED: LORazepam 0.5 MG TABLET PO PRN
[2022-07-27] MEDS ORDERED: LORazepam 0.5 MG TABLET PO SCH (05:00)
[2022-07-27 07:13] VITALS: BP 132/87; PULSE 76; TEMP 97.6
[2022-07-28] MEDS ORDERED: LORazepam 0.5 MG TABLET PO ONE (05:00)
== END 2022-07-27 10:00 | disposition home or self-care (01) | DRG 897 ==
LOC: YASAS 10:59 → Y6N 13:02
PROVIDERS: ADMIT Allergy & Immunology; ATTEND Surgery
PROC: HZ2ZZZZ Detoxification Services for Substance Abuse Treatment (ICD-10-PCS; principal; 2022-07-24)
DX: F10.230 Alcohol dependence with withdrawal, uncomplicated (principal); F17.213 Nicotine dependence, cigarettes, with withdrawal; F10.280 Alcohol dependence with alcohol-induced anxiety disorder; F10.282 Alcohol dependence with alcohol-induced sleep disorder; F10.24 Alcohol dependence with alcohol-induced mood disorder; D75.1 Secondary polycythemia; D75.89 Other specified diseases of blood and blood-forming organs; J30.89 Other allergic rhinitis; M10.9 Gout, unspecified; R79.89 Other specified abnormal findings of blood chemistry; R73.03 Prediabetes; Z88.8 Allergy status to other drugs, medicaments and biological substances
CPT/HCPCS: 36415; 80053; 82140; 82247; 85025; 85027; 86780; 87635; 87811

== ENCOUNTER 2022-08-23 09:10 | Emergency (ER) | payer OTHER ==
[2022-08-23 09:22] VITALS: RESP 19; TEMP 98.1; BMI 27.4
[2022-08-23] MEDS ORDERED: chlordiazePOXIDE HCL 25 MG CAPSULE PO ONE (10:22)
[2022-08-23] MEDS ORDERED: FOLIC ACID INJECTION - 1 MG, THIAMINE HCL 100 MG, MULTIVIT INJECTION ADULT 10 ML in SOD... IVPB ONE (10:22)
[2022-08-23] MEDS ORDERED: SODIUM CHLORIDE 1,000 ML IV STA (10:22)
[2022-08-23] MEDS ORDERED: chlordiazePOXIDE HCL 25 MG CAPSULE ONE (10:42)
[2022-08-23 11:02] LABS: BASO % 0.6 % (0-2.0); EOS % 2.6 % (0-4.5); HEMATOCRIT 52.1 % (35.4-49); HEMOGLOBIN 17.9 GM/dL (11.7-16.9); LYMPH % 28.3 % (8-40); MCH 34.2 pg (25.7-33.7); MCHC 34.3 g/dl (32.0-35.9); MEAN CELL VOLUME 99.6 fl (80-96); MEAN PLT VOLUME 8.1 fl (7.5-11.1); MONO % 8.5 % (3.8-10.2); PLATELET COUNT 309 10^3/uL (134-434); RBC 5.23 M/mm3 (4.00-5.60); RDW 19.2 % (11.9-15.9); WHITE BLOOD COUNT 5.5 K/mm3 (4.0-10.0)
[2022-08-23 11:39] LABS: POTASSIUM 4.4 mmol/L (3.5-5.1)
[2022-08-23 11:42] LABS: ALBUMIN 3.9 g/dl (3.4-5.0); BLOOD UREA NITROGEN 4.2 mg/dL (7-18); CALCIUM 9.9 mg/dL (8.5-10.1); MAGNESIUM 2.2 mg/dL (1.8-2.4)
[2022-08-23 11:45] LABS: PHOSPHOROUS 2.4 mg/dL (2.5-4.9)
[2022-08-23 11:46] LABS: BILIRUBIN,TOTAL 1.4 mg/dL (0.2-1); TOT PROT 7.8 g/dl (6.4-8.2)
[2022-08-23 13:28] VITALS: BP 141/100; PULSE 85
== END 2022-08-23 14:08 | disposition home or self-care (01) ==
LOC: JER 09:10
PROC: 3E033GC Introduction of Other Therapeutic Substance into Peripheral Vein, Percutaneous Approach (ICD-10-PCS; principal; 2022-08-23)
PROC: 3E0337Z Introduction of Electrolytic and Water Balance Substance into Peripheral Vein, Percutaneous Approach (ICD-10-PCS; 2022-08-23)
DX: R07.9 Chest pain, unspecified (principal); R06.02 Shortness of breath; R51.9 Headache, unspecified; F10.230 Alcohol dependence with withdrawal, uncomplicated
CPT/HCPCS: 36415; 71045-TC-FY; 80053; 83690; 83735; 84100; 84484; 85025; 93005; 93010; 99285-25

== ENCOUNTER 2023-01-10 06:52 | Emergency (ER) | payer OTHER ==
[2023-01-10 06:56] VITALS: BP 127/93; RESP 18; TEMP 97.6; BMI 26.6
[2023-01-10] MEDS ORDERED: SODIUM CHLORIDE 1,000 ML IV STA (08:03)
[2023-01-10] MEDS ORDERED: FAMOTIDINE 20 MG/50 ML IVPB 20 MG/50 ML MG IVPB ONE ×2 (08:04→08:12)
[2023-01-10 08:15] LABS: EOS % 7.1 % (0-4.5); HEMATOCRIT 50.2 % (35.4-49); HEMOGLOBIN 16.9 GM/dL (11.7-16.9); LYMPH % 36.7 % (8-40); MCH 37.9 pg (25.7-33.7); MCHC 33.7 g/dl (32.0-35.9); MEAN CELL VOLUME 112.5 fl (80-96); MEAN PLT VOLUME 9.1 fl (7.5-11.1); MONO % 10.2 % (3.8-10.2); PLATELET COUNT 156 10^3/uL (134-434); RBC 4.46 M/mm3 (4.00-5.60); RDW 18.4 % (11.9-15.9); WHITE BLOOD COUNT 3.8 K/mm3 (4.0-10.0)
[2023-01-10 08:37] LABS: POTASSIUM 4.6 mmol/L (3.5-5.1)
[2023-01-10 08:39] LABS: BLOOD UREA NITROGEN 4.3 mg/dL (7-18); CALCIUM 8.5 mg/dL (8.5-10.1)
[2023-01-10 08:40] LABS: ALBUMIN 3.1 g/dl (3.4-5.0)
[2023-01-10 08:42] LABS: CREATININE 0.9 mg/dL (0.55-1.3)
[2023-01-10 08:44] LABS: TOT PROT 7.4 g/dl (6.4-8.2)
[2023-01-10 08:48] LABS: BILIRUBIN,TOTAL 1.9 mg/dL (0.2-1)
[2023-01-10] MEDS ORDERED: chlordiazePOXIDE HCL 25 MG CAPSULE PO ONE (09:16)
[2023-01-10] MEDS ORDERED: chlordiazePOXIDE HCL 25 MG CAPSULE ONE (09:38)
[2023-01-10 13:03] VITALS: PULSE 87
[2023-01-10 14:09] LABS: ANISOCYTOSIS 1+; MACROCYTOSIS 0; OVALOCYTE 2+
== END 2023-01-10 12:34 | disposition home or self-care (01) ==
LOC: JER 06:52
PROC: 3E033GC Introduction of Other Therapeutic Substance into Peripheral Vein, Percutaneous Approach (ICD-10-PCS; principal; 2023-01-10)
DX: R00.2 Palpitations (principal); R63.0 Anorexia; E86.0 Dehydration; R25.1 Tremor, unspecified; F10.230 Alcohol dependence with withdrawal, uncomplicated
CPT/HCPCS: 36415; 76705-TC; 80053; 80307; 83690; 84443; 85025; 93005; 93010; 99285-25

== ENCOUNTER 2023-07-30 10:20 | Inpatient (IN) | payer OTHER ==
[2023-07-30 10:49] VITALS: BMI 23.8
[2023-07-30] MEDS ORDERED: LOPERAMIDE HCL 2 MG CAPSULE PO PRN (13:09)
[2023-07-30] MEDS ORDERED: MAG HYDROX/AL HYDROX/SIMETH 30 ML UNIT-DOSE CUP PO PRN (13:09)
[2023-07-30] MEDS ORDERED: POLYETHYLENE GLYCOL (HEALTHYLAX) 3350 17 GM PACKET PO PRN (13:09)
[2023-07-30] MEDS ORDERED: MAGNESIUM HYDROX 2400MG/30ML ORAL SUSPENSION 30 ML CUP PO PRN (13:09)
[2023-07-30] MEDS ORDERED: guaiFENesin 600 MG TABLET.ER (FP) PO PRN (13:09)
[2023-07-30] MEDS ORDERED: NICOTINE POLACRILEX 2 MG LOZENGE BC PRN (13:09)
[2023-07-30] MEDS ORDERED: ACETAMINOPHEN 325 MG TABLET (FP) PO PRN (13:09)
[2023-07-30] MEDS ORDERED: hydrOXYzine PAMOATE 25 MG CAPSULE (FP) PO PRN (13:09)
[2023-07-30] MEDS ORDERED: ONDANSETRON *ODT* 4 MG TABLET SL PRN (13:09)
[2023-07-30] MEDS ORDERED: BENZOCAINE/MENTHOL (CHLORASEPTIC ) LOZENGE MM PRN (13:09)
[2023-07-30] MEDS ORDERED: BENZONATATE 200 MG CAPSULE PO PRN (13:09)
[2023-07-30] MEDS ORDERED: diazePAM 5 MG TABLET PO PRN (13:10)
[2023-07-30] MEDS ORDERED: chlordiazePOXIDE HCL 25 MG CAPSULE PO PRN (14:37)
[2023-07-30] MEDS ORDERED: chlordiazePOXIDE HCL 25 MG CAPSULE ONE (14:54)
[2023-07-30] MEDS: chlordiazePOXIDE HCL 25 MG CAPSULE PO ONE (15:00)
[2023-07-30] MEDS ORDERED: diazePAM 5 MG TABLET PO SCH (17:00)
[2023-07-30] MEDS: chlordiazePOXIDE HCL 25 MG CAPSULE PO SCH (17:32)
[2023-07-30] MEDS: IBUPROFEN 600 MG TABLET (FP) PO PRN (19:52)
[2023-07-30] MEDS: MELATONIN 5 MG TABLETS PO SCH (22:39)
[2023-07-30] MEDS: THIAMINE 100 MG TABLET PO SCH (22:40)
[2023-07-30] MEDS: COLCHICINE 0.6 MG CAPSULE PO SCH (23:00)
[2023-07-31] MEDS: METHOCARBAMOL 500 MG TABLET PO PRN (05:33)
[2023-07-31] MEDS: NICOTINE POLACRILEX 2 MG GUM BUC PRN (05:35)
[2023-07-31] MEDS: PRENATAL VITAMINS W/ FOLIC ACID TABLET (FP) PO SCH (10:38)
[2023-07-31 12:26] LABS: HEMOGLOBIN 14.6 GM/dL (11.7-16.9); MCH 38.2 pg (25.7-33.7); MCHC 34.7 g/dl (32.0-35.9); MEAN PLT VOLUME 8.4 fl (7.5-11.1); PLATELET COUNT 159 10^3/uL (134-434); RBC 3.82 M/mm3 (4.00-5.60); RDW 14.2 % (11.9-15.9); WHITE BLOOD COUNT 5.8 K/mm3 (4.0-10.0)
[2023-07-31 12:52] LABS: POTASSIUM 4.4 mmol/L (3.5-5.1)
[2023-07-31 13:12] LABS: ALBUMIN 2.6 g/dl (3.4-5.0); BLOOD UREA NITROGEN 7.2 mg/dL (7-18); CALCIUM 8.8 mg/dL (8.5-10.1)
[2023-07-31 13:15] LABS: CREATININE 0.8 mg/dL (0.55-1.3); TOT PROT 6.5 g/dl (6.4-8.2)
[2023-07-31 13:16] LABS: BILIRUBIN,TOTAL 1.8 mg/dL (0.2-1)
[2023-07-31] MEDS: chlordiazePOXIDE HCL 10 MG CAPSULE PO SCH (17:57)
[2023-07-31] MEDS: chlordiazePOXIDE HCL 25 MG CAPSULE PO SCH (22:52)
[2023-08-01] MEDS: chlordiazePOXIDE HCL 10 MG CAPSULE PO SCH (05:39)
[2023-08-01] MEDS ORDERED: diazePAM 5 MG TABLET PO SCH (06:00)
[2023-08-01] MEDS: BISMUTH SUBSALICYLATE 262 MG/15 ML BTL PO PRN (21:13)
[2023-08-01] MEDS: DICYCLOMINE HCL 10 MG CAPSULE PO PRN (22:22)
[2023-08-02] MEDS ORDERED: chlordiazePOXIDE HCL 10 MG CAPSULE PO PRN
[2023-08-02] MEDS: IBUPROFEN 400 MG TABLET (FP) PO PRN (01:20)
[2023-08-02] MEDS ORDERED: chlordiazePOXIDE HCL 10 MG CAPSULE PO SCH (05:00)
[2023-08-02] MEDS: chlordiazePOXIDE 5 MG CAPSULE PO SCH (05:45)
[2023-08-02] MEDS: chlordiazePOXIDE HCL 10 MG CAPSULE PO SCH (05:57)
[2023-08-02] MEDS ORDERED: diazePAM 5 MG TABLET PO SCH (06:00)
[2023-08-02 09:23] VITALS: BP 125/91; PULSE 87; RESP 18; TEMP 97.3
[2023-08-03] MEDS ORDERED: chlordiazePOXIDE HCL 10 MG CAPSULE PO ONE ×2 (05:00)
[2023-08-03] MEDS ORDERED: diazePAM 5 MG TABLET PO ONE (06:00)
== END 2023-08-02 09:28 | disposition home or self-care (01) | DRG 897 ==
LOC: YASAS 10:20 → Y6N 13:11
PROVIDERS: ADMIT Allergy & Immunology; ATTEND Surgery
PROC: HZ2ZZZZ Detoxification Services for Substance Abuse Treatment (ICD-10-PCS; principal; 2023-07-30)
DX: F10.230 Alcohol dependence with withdrawal, uncomplicated (principal); F17.210 Nicotine dependence, cigarettes, uncomplicated; F10.24 Alcohol dependence with alcohol-induced mood disorder; F43.10 Post-traumatic stress disorder, unspecified; F41.9 Anxiety disorder, unspecified; E80.6 Other disorders of bilirubin metabolism; E78.5 Hyperlipidemia, unspecified; I10 Essential (primary) hypertension; R73.03 Prediabetes; Z62.810 Personal history of physical and sexual abuse in childhood; Z88.8 Allergy status to other drugs, medicaments and biological substances
CPT/HCPCS: 36415; 80053; 80305; 82247; 84550; 85027; 86780

== ENCOUNTER 2023-09-26 09:35 | Emergency (ER) | payer OTHER ==
[2023-09-26 09:42] VITALS: BP 123/88; RESP 18; TEMP 98.3; BMI 25.0
[2023-09-26] MEDS ORDERED: chlordiazePOXIDE HCL 25 MG CAPSULE ONE (11:06)
[2023-09-26 11:09] LABS: BASO % 0.9 % (0-2.0); EOS % 2.6 % (0-4.5); HEMATOCRIT 51.2 % (35.4-49); HEMOGLOBIN 17.5 GM/dL (11.7-16.9); LYMPH % 30.6 % (8-40); MCH 36.5 pg (25.7-33.7); MCHC 34.2 g/dl (32.0-35.9); MEAN CELL VOLUME 106.8 fl (80-96); MEAN PLT VOLUME 8.1 fl (7.5-11.1); MONO % 8.8 % (3.8-10.2); NEUT % 57.1 % (42.8-82.8); PLATELET COUNT 158 10^3/uL (134-434); RDW 20.1 % (11.9-15.9)
[2023-09-26] MEDS: chlordiazePOXIDE HCL 25 MG CAPSULE PO ONE (11:12)
[2023-09-26] MEDS: SODIUM CHLORIDE 0.9% 500 ML INFUS.BAG IV ONE ×2 (11:12→12:23)
[2023-09-26 11:33] LABS: POTASSIUM 5.2 mmol/L (3.5-5.1)
[2023-09-26 11:35] LABS: BLOOD UREA NITROGEN 3.9 mg/dL (7-18); CALCIUM 9.1 mg/dL (8.5-10.1)
[2023-09-26 11:36] LABS: ALBUMIN 3.2 g/dl (3.4-5.0)
[2023-09-26 11:38] LABS: CREATININE 1.1 mg/dL (0.55-1.3)
[2023-09-26 11:40] LABS: BILIRUBIN,TOTAL 1.4 mg/dL (0.2-1); TOT PROT 7.8 g/dl (6.4-8.2)
[2023-09-26 12:11] LABS: ANISOCYTOSIS 2+; MACROCYTOSIS 2+
[2023-09-26 12:31] VITALS: PULSE 83
== END 2023-09-26 13:02 | disposition home or self-care (01) ==
LOC: JER 09:35
DX: R00.2 Palpitations (principal); R07.89 Other chest pain; R61 Generalized hyperhidrosis; F10.230 Alcohol dependence with withdrawal, uncomplicated; Y90.9 Presence of alcohol in blood, level not specified
CPT/HCPCS: 36415; 71046-TC-FY; 80053; 83690; 84484; 85025; 93005; 93010; 99285-25

== ENCOUNTER 2023-12-19 18:41 | Inpatient (IN) | payer OTHER ==
[2023-12-19 21:10] VITALS: BMI 27.8
[2023-12-20] MEDS ORDERED: BENZOCAINE/MENTHOL (CHLORASEPTIC ) LOZENGE MM PRN (00:03)
[2023-12-20] MEDS ORDERED: IBUPROFEN 400 MG TABLET (FP) PO PRN (00:03)
[2023-12-20] MEDS ORDERED: POLYETHYLENE GLYCOL (HEALTHYLAX) 3350 17 GM PACKET PO PRN (00:03)
[2023-12-20] MEDS ORDERED: NALOXONE (NARCAN) HCL 4 MG/0.1 ML SPRAY NS PRN (00:03)
[2023-12-20] MEDS ORDERED: DICYCLOMINE HCL 10 MG CAPSULE PO PRN (00:03)
[2023-12-20] MEDS ORDERED: MAGNESIUM HYDROX 2400MG/30ML ORAL SUSPENSION 30 ML CUP PO PRN (00:03)
[2023-12-20] MEDS ORDERED: METHOCARBAMOL 500 MG TABLET PO PRN (00:03)
[2023-12-20] MEDS ORDERED: guaiFENesin 600 MG TABLET.ER (FP) PO PRN (00:03)
[2023-12-20] MEDS ORDERED: NALOXONE (NYS OPIOID OVERDOSE PROGRAM) 4 MG/0.1 ML SPRAY NS PRN (00:03)
[2023-12-20] MEDS ORDERED: ACETAMINOPHEN 325 MG TABLET (FP) PO PRN (00:03)
[2023-12-20] MEDS ORDERED: BENZONATATE 200 MG CAPSULE PO PRN (00:03)
[2023-12-20] MEDS ORDERED: LOPERAMIDE HCL 2 MG CAPSULE PO PRN (00:03)
[2023-12-20] MEDS ORDERED: hydrOXYzine PAMOATE 25 MG CAPSULE (FP) PO PRN (00:03)
[2023-12-20] MEDS ORDERED: NICOTINE POLACRILEX 2 MG GUM BUC PRN (00:03)
[2023-12-20] MEDS ORDERED: ONDANSETRON *ODT* 4 MG TABLET SL PRN (00:03)
[2023-12-20] MEDS ORDERED: MAG HYDROX/AL HYDROX/SIMETH 30 ML UNIT-DOSE CUP PO PRN (00:03)
[2023-12-20] MEDS ORDERED: IBUPROFEN 600 MG TABLET (FP) PO PRN (00:03)
[2023-12-20] MEDS ORDERED: BISMUTH SUBSALICYLATE 524 MG/30 ML PO PRN (00:03)
[2023-12-20] MEDS ORDERED: LORazepam 1 MG TABLET PO PRN (08:46)
[2023-12-20] MEDS: NICOTINE 14 MG/24 HOURS TOPICAL PATCH TD SCH (10:12)
[2023-12-20] MEDS: LORazepam 2 MG TABLET PO SCH (10:15)
[2023-12-20] MEDS: amLODIPine BESYLATE 2.5 MG TABLET (FP) PO SCH (10:15)
[2023-12-20] MEDS: PRENATAL VITAMINS W/ FOLIC ACID TABLET (FP) PO SCH (10:15)
[2023-12-20] MEDS: NALTREXONE HCL 50 MG TABLET PO SCH (15:50)
[2023-12-20] MEDS: MELATONIN 5 MG TABLETS PO SCH (23:04)
[2023-12-20] MEDS: THIAMINE 100 MG TABLET PO SCH (23:05)
[2023-12-21 11:49] LABS: HEMATOCRIT 49.1 % (35.4-49); HEMOGLOBIN 16.6 GM/dL (11.7-16.9); MCH 34.9 pg (25.7-33.7); MCHC 33.8 g/dl (32.0-35.9); MEAN CELL VOLUME 103.2 fl (80-96); MEAN PLT VOLUME 9.4 fl (7.5-11.1); PLATELET COUNT 243 10^3/uL (134-434); RBC 4.75 M/mm3 (4.00-5.60); RDW 18.1 % (11.9-15.9); WHITE BLOOD COUNT 9.6 K/mm3 (4.0-10.0)
[2023-12-21 11:56] LABS: POTASSIUM 4.7 mmol/L (3.5-5.1)
[2023-12-21 12:06] LABS: ALBUMIN 4.1 g/dl (3.4-5.0); BLOOD UREA NITROGEN 7.9 mg/dL (7-18); CALCIUM 9.8 mg/dL (8.5-10.1)
[2023-12-21 12:11] LABS: BILIRUBIN,TOTAL 2.9 mg/dL (0.2-1); TOT PROT 8.1 g/dl (6.4-8.2)
[2023-12-21 18:06] VITALS: BP 147/96; PULSE 94; RESP 17; TEMP 97.6
[2023-12-22] MEDS ORDERED: LORazepam 1 MG TABLET PO SCH (05:00)
[2023-12-23] MEDS ORDERED: LORazepam 0.5 MG TABLET PO PRN
[2023-12-23] MEDS ORDERED: LORazepam 0.5 MG TABLET PO SCH (05:00)
[2023-12-24] MEDS ORDERED: LORazepam 0.5 MG TABLET PO ONE (05:00)
== END 2023-12-21 17:58 | disposition left against medical advice (07) | DRG 894 ==
LOC: YASAS 18:41 → Y6N 23:40
PROVIDERS: ADMIT Allergy & Immunology; ATTEND Surgery
PROC: HZ2ZZZZ Detoxification Services for Substance Abuse Treatment (ICD-10-PCS; principal; 2023-12-19)
DX: F10.230 Alcohol dependence with withdrawal, uncomplicated (principal); F43.10 Post-traumatic stress disorder, unspecified; F32.A Depression, unspecified; I10 Essential (primary) hypertension; Z88.8 Allergy status to other drugs, medicaments and biological substances
CPT/HCPCS: 36415; 80053; 80305; 80307; 85027; 86780; 93005; 93010

== ENCOUNTER 2024-05-13 16:50 | Inpatient (IN) | payer OTHER ==
[2024-05-13 17:38] VITALS: BMI 27.1
[2024-05-13] MEDS ORDERED: chlordiazePOXIDE HCL 25 MG CAPSULE PO PRN (18:00)
[2024-05-13] MEDS ORDERED: ACETAMINOPHEN 325 MG TABLET (FP) PO PRN (18:24)
[2024-05-13] MEDS ORDERED: ONDANSETRON *ODT* 4 MG TABLET SL PRN (18:24)
[2024-05-13] MEDS ORDERED: IBUPROFEN 600 MG TABLET (FP) PO PRN (18:24)
[2024-05-13] MEDS ORDERED: MAGNESIUM HYDROX 2400MG/30ML ORAL SUSPENSION 30 ML CUP PO PRN (18:24)
[2024-05-13] MEDS ORDERED: BISMUTH SUBSALICYLATE 524 MG/30 ML PO PRN (18:24)
[2024-05-13] MEDS ORDERED: DICYCLOMINE HCL 10 MG CAPSULE PO PRN (18:24)
[2024-05-13] MEDS ORDERED: BENZONATATE 200 MG CAPSULE PO PRN (18:24)
[2024-05-13] MEDS ORDERED: NICOTINE POLACRILEX 2 MG GUM BUC PRN (18:24)
[2024-05-13] MEDS ORDERED: LOPERAMIDE HCL 2 MG CAPSULE PO PRN (18:24)
[2024-05-13] MEDS ORDERED: BENZOCAINE/MENTHOL (CHLORASEPTIC ) LOZENGE MM PRN (18:24)
[2024-05-13] MEDS ORDERED: NICOTINE POLACRILEX 2 MG LOZENGE BC PRN (18:24)
[2024-05-13] MEDS ORDERED: NALOXONE (NARCAN) HCL 4 MG/0.1 ML SPRAY NS PRN (18:24)
[2024-05-13] MEDS ORDERED: IBUPROFEN 400 MG TABLET (FP) PO PRN (18:24)
[2024-05-13] MEDS ORDERED: MAG HYDROX/AL HYDROX/SIMETH 30 ML UNIT-DOSE CUP PO PRN (18:24)
[2024-05-13] MEDS ORDERED: POLYETHYLENE GLYCOL (HEALTHYLAX) 3350 17 GM PACKET PO PRN (18:24)
[2024-05-13] MEDS ORDERED: guaiFENesin 600 MG TABLET.ER (FP) PO PRN (18:24)
[2024-05-13] MEDS ORDERED: METOPROLOL TARTRATE 25 MG TABLET (FP) ONE (20:04)
[2024-05-13] MEDS ORDERED: chlordiazePOXIDE HCL 25 MG CAPSULE ONE (20:04)
[2024-05-13] MEDS: METOPROLOL TARTRATE 25 MG TABLET (FP) PO ONE (20:09)
[2024-05-13] MEDS: chlordiazePOXIDE HCL 25 MG CAPSULE PO ONE (20:09)
[2024-05-13] MEDS: THIAMINE 100 MG TABLET PO SCH (22:18)
[2024-05-13] MEDS: MELATONIN 5 MG TABLETS PO SCH (22:18)
[2024-05-13] MEDS: chlordiazePOXIDE HCL 25 MG CAPSULE PO SCH (22:19)
[2024-05-14] MEDS ORDERED: INDOMETHACIN 25 MG CAPSULE PO PRN (09:17)
[2024-05-14] MEDS: PRENATAL VITAMINS W/ FOLIC ACID TABLET (FP) PO SCH (10:25)
[2024-05-14] MEDS: NALTREXONE HCL 50 MG TABLET PO SCH (10:27)
[2024-05-14] MEDS: LORATADINE 10 MG TABLET PO SCH (10:27)
[2024-05-14] MEDS: COLCHICINE 0.6 MG TAB PO SCH (10:55)
[2024-05-14] MEDS: FLUoxetine HCL 10 MG CAPSULE PO SCH (12:19)
[2024-05-14 12:37] LABS: HEMATOCRIT 39.7 % (40.1-51.0); HEMOGLOBIN 13.6 g/dL (13.7-17.5); MCHC 34.3 g/dl (32.3-36.5); MEAN CELL VOLUME 102.1 fl (79.0-92.2); MEAN PLT VOLUME 10.4 fl (9.4-12.4); PLATELET COUNT 122 x10^3/uL (163-337); RDW 17.2 % (12.1-15.9)
[2024-05-14 12:53] LABS: ALBUMIN 3.1 g/dl (3.4-5.0); BLOOD UREA NITROGEN 7.2 mg/dL (7-18); CALCIUM 8.5 mg/dL (8.5-10.1)
[2024-05-14 12:58] LABS: BILIRUBIN,TOTAL 1.2 mg/dL (0.2-1); TOT PROT 6.1 g/dl (6.4-8.2)
[2024-05-14] MEDS: LORazepam 2 MG TABLET PO SCH (17:22)
[2024-05-14] MEDS: LORazepam 1 MG TABLET PO PRN (19:31)
[2024-05-14] MEDS: PRAZOSIN HCL 1 MG CAPSULE PO SCH (22:24)
[2024-05-15] MEDS ORDERED: chlordiazePOXIDE HCL 25 MG CAPSULE PO SCH (05:00)
[2024-05-15] MEDS: METHOCARBAMOL 500 MG TABLET PO PRN (10:14)
[2024-05-16] MEDS ORDERED: chlordiazePOXIDE HCL 10 MG CAPSULE PO PRN
[2024-05-16] MEDS ORDERED: chlordiazePOXIDE HCL 10 MG CAPSULE PO SCH (05:00)
[2024-05-16] MEDS: LORazepam 1 MG TABLET PO SCH (05:35)
[2024-05-16] MEDS: NALTREXONE HCL 50 MG TABLET PO SCH (10:53)
[2024-05-17] MEDS ORDERED: LORazepam 0.5 MG TABLET PO PRN
[2024-05-17] MEDS ORDERED: chlordiazePOXIDE HCL 10 MG CAPSULE PO SCH (05:00)
[2024-05-17] MEDS: LORazepam 0.5 MG TABLET PO SCH (05:37)
[2024-05-17 09:40] VITALS: BP 118/89; PULSE 97; RESP 18; TEMP 97.6
[2024-05-18] MEDS ORDERED: LORazepam 0.5 MG TABLET PO ONE (05:00)
[2024-05-18] MEDS ORDERED: chlordiazePOXIDE HCL 10 MG CAPSULE PO ONE (05:00)
== END 2024-05-17 09:59 | disposition home or self-care (01) | DRG 897 ==
LOC: YASAS 16:50 → Y6N 18:40
PROVIDERS: ADMIT Allergy & Immunology; ATTEND Allergy & Immunology
PROC: HZ2ZZZZ Detoxification Services for Substance Abuse Treatment (ICD-10-PCS; principal; 2024-05-13)
DX: F10.230 Alcohol dependence with withdrawal, uncomplicated (principal); F17.210 Nicotine dependence, cigarettes, uncomplicated; F10.280 Alcohol dependence with alcohol-induced anxiety disorder; F10.282 Alcohol dependence with alcohol-induced sleep disorder; F41.9 Anxiety disorder, unspecified; F43.10 Post-traumatic stress disorder, unspecified; I10 Essential (primary) hypertension; E78.5 Hyperlipidemia, unspecified; M10.9 Gout, unspecified; R73.9 Hyperglycemia, unspecified; Z88.8 Allergy status to other drugs, medicaments and biological substances
CPT/HCPCS: 36415; 80053; 80305; 80307; 83036; 84450; 85027; 86780; 93005; 93010

== ENCOUNTER 2024-06-25 12:55 | Inpatient (IN) | payer OTHER ==
[2024-06-25 13:18] VITALS: BMI 28.4
[2024-06-25] MEDS ORDERED: ONDANSETRON *ODT* 4 MG TABLET SL PRN (13:46)
[2024-06-25] MEDS ORDERED: POLYETHYLENE GLYCOL (HEALTHYLAX) 3350 17 GM PACKET PO PRN (13:46)
[2024-06-25] MEDS ORDERED: guaiFENesin 600 MG TABLET.ER (FP) PO PRN (13:46)
[2024-06-25] MEDS ORDERED: BISMUTH SUBSALICYLATE 524 MG/30 ML PO PRN (13:46)
[2024-06-25] MEDS ORDERED: MAG HYDROX/AL HYDROX/SIMETH 30 ML UNIT-DOSE CUP PO PRN (13:46)
[2024-06-25] MEDS ORDERED: chlordiazePOXIDE HCL 25 MG CAPSULE PO PRN (13:46)
[2024-06-25] MEDS ORDERED: IBUPROFEN 400 MG TABLET (FP) PO PRN (13:46)
[2024-06-25] MEDS ORDERED: hydrOXYzine PAMOATE 25 MG CAPSULE (FP) PO PRN (13:46)
[2024-06-25] MEDS ORDERED: IBUPROFEN 600 MG TABLET (FP) PO PRN (13:46)
[2024-06-25] MEDS ORDERED: LOPERAMIDE HCL 2 MG CAPSULE PO PRN (13:46)
[2024-06-25] MEDS ORDERED: NALOXONE (NARCAN) HCL 4 MG/0.1 ML SPRAY NS PRN (13:46)
[2024-06-25] MEDS ORDERED: METHOCARBAMOL 500 MG TABLET PO PRN (13:46)
[2024-06-25] MEDS ORDERED: ACETAMINOPHEN 325 MG TABLET (FP) PO PRN (13:46)
[2024-06-25] MEDS ORDERED: MAGNESIUM HYDROX 2400MG/30ML ORAL SUSPENSION 30 ML CUP PO PRN (13:46)
[2024-06-25] MEDS ORDERED: DICYCLOMINE HCL 10 MG CAPSULE PO PRN (13:46)
[2024-06-25] MEDS ORDERED: NICOTINE POLACRILEX 2 MG LOZENGE BC PRN (13:46)
[2024-06-25] MEDS ORDERED: BENZOCAINE/MENTHOL (CHLORASEPTIC ) LOZENGE MM PRN (13:46)
[2024-06-25] MEDS ORDERED: BENZONATATE 200 MG CAPSULE PO PRN (13:46)
[2024-06-25] MEDS ORDERED: COLCHICINE 0.6 MG TAB PO PRN (13:48)
[2024-06-25] MEDS ORDERED: chlordiazePOXIDE HCL 25 MG CAPSULE ONE (16:18)
[2024-06-25] MEDS: chlordiazePOXIDE HCL 25 MG CAPSULE PO SCH (16:23)
[2024-06-25] MEDS: NALTREXONE HCL 50 MG TABLET PO ONE (20:13)
[2024-06-25] MEDS: THIAMINE 100 MG TABLET PO SCH (22:04)
[2024-06-25] MEDS: PRAZOSIN HCL 1 MG CAPSULE PO SCH (22:04)
[2024-06-25] MEDS: MELATONIN 5 MG TABLETS PO SCH (22:06)
[2024-06-26] MEDS: amLODIPine BESYLATE 5 MG TABLET (FP) PO SCH (10:30)
[2024-06-26] MEDS: NALTREXONE HCL 50 MG TABLET PO SCH (10:30)
[2024-06-26] MEDS: PRENATAL VITAMINS W/ FOLIC ACID TABLET (FP) PO SCH (10:30)
[2024-06-26] MEDS ORDERED: FLUoxetine HCL 10 MG TABLET PO SCH (11:15)
[2024-06-26 11:17] LABS: HEMATOCRIT 46.2 % (40.1-51.0); HEMOGLOBIN 15.6 g/dL (13.7-17.5); MCHC 33.8 g/dl (32.3-36.5); MEAN CELL VOLUME 100.9 fl (79.0-92.2); MEAN PLT VOLUME 11.2 fl (9.4-12.4); PLATELET COUNT 164 x10^3/uL (163-337); RDW 16.9 % (12.1-15.9)
[2024-06-26] MEDS: FLUoxetine HCL 10 MG CAPSULE PO SCH (11:18)
[2024-06-26] MEDS: PNEUMOC 20-VAL CONJ-DIP CRM/PF 0.5 ML SYRINGE IM ONE (11:20)
[2024-06-26 14:41] LABS: ALBUMIN 4.1 g/dl (3.4-5.0); CALCIUM 9.6 mg/dL (8.5-10.1)
[2024-06-26 14:43] LABS: BILIRUBIN,TOTAL 0.7 mg/dL (0.2-1)
[2024-06-26 14:44] LABS: TOT PROT 7.9 g/dl (6.4-8.2)
[2024-06-26 14:45] LABS: CREATININE 1.1 mg/dL (0.55-1.3)
[2024-06-27] MEDS: chlordiazePOXIDE HCL 25 MG CAPSULE PO SCH (06:00)
[2024-06-27 13:40] VITALS: BP 106/78; PULSE 99; RESP 17; TEMP 98.7
[2024-06-28] MEDS ORDERED: chlordiazePOXIDE HCL 10 MG CAPSULE PO PRN
[2024-06-28] MEDS ORDERED: chlordiazePOXIDE HCL 10 MG CAPSULE PO SCH (05:00)
[2024-06-29] MEDS ORDERED: chlordiazePOXIDE HCL 10 MG CAPSULE PO SCH (05:00)
[2024-06-30] MEDS ORDERED: chlordiazePOXIDE HCL 10 MG CAPSULE PO ONE (05:00)
== END 2024-06-27 16:54 | disposition left against medical advice (07) | DRG 894 ==
LOC: YASAS 12:55 → Y6N 16:23
PROVIDERS: ADMIT Allergy & Immunology; ATTEND Allergy & Immunology
PROC: HZ2ZZZZ Detoxification Services for Substance Abuse Treatment (ICD-10-PCS; principal; 2024-06-25)
DX: F10.230 Alcohol dependence with withdrawal, uncomplicated (principal); F17.210 Nicotine dependence, cigarettes, uncomplicated; F10.280 Alcohol dependence with alcohol-induced anxiety disorder; F10.282 Alcohol dependence with alcohol-induced sleep disorder; F10.24 Alcohol dependence with alcohol-induced mood disorder; F43.10 Post-traumatic stress disorder, unspecified; F41.9 Anxiety disorder, unspecified; E78.5 Hyperlipidemia, unspecified; I10 Essential (primary) hypertension; M10.9 Gout, unspecified; Z88.8 Allergy status to other drugs, medicaments and biological substances
CPT/HCPCS: 36415; 80053; 80305; 80307; 85027; 86780; 86803; 93005; 93010

== ENCOUNTER 2024-06-29 21:39 | Emergency (ER) | payer OTHER ==
[2024-06-29 21:47] VITALS: TEMP 97.7; BMI 26.9
[2024-06-29] MEDS ORDERED: ACETAMINOPHEN INJECTION 100 ML ONE (22:23)
[2024-06-29] MEDS ORDERED: MAG HYDROX/AL HYDROX/SIMETH 30 ML UNIT-DOSE CUP ONE (22:23)
[2024-06-29] MEDS ORDERED: FAMOTIDINE 20 MG/50 ML IVPB 20 MG/50 ML MG IVPB ONE (22:24)
[2024-06-29] MEDS: MAG HYDROX/AL HYDROX/SIMETH 30 ML UNIT-DOSE CUP PO ONE (22:44)
[2024-06-29] MEDS: SODIUM CHLORIDE 0.9% 500 ML INFUS.BAG IV ONE (22:44)
[2024-06-29] MEDS: ACETAMINOPHEN 1000 MG/100 ML BAG IVPB ONE (22:45)
[2024-06-29 22:49] LABS: ABSOLUTE IMMATURE GRANULOCYTES 0.01 x10^3/uL (0.0-0.031); BASOPHILS # 0.05 x10^3/uL (0.01-0.08); EOSINOPHIL % 2.9 % (0.8-7.0); EOSINOPHILS # 0.12 x10^3/uL (0.04-0.54); HEMATOCRIT 44.9 % (40.1-51.0); HEMOGLOBIN 15.5 g/dL (13.7-17.5); MCHC 34.5 g/dl (32.3-36.5); MEAN CELL VOLUME 101.6 fl (79.0-92.2); MEAN PLT VOLUME 10.7 fl (9.4-12.4); MONOCYTE # 0.69 x10^3/uL (0.30-0.82); MONOCYTE % 16.5 % (5.3-12.2); PLATELET COUNT 136 x10^3/uL (163-337)
[2024-06-29] MEDS: FAMOTIDINE 20 MG/50 ML IVPB 20 MG/50 ML MG IVPB ONE (22:50)
[2024-06-29 22:55] LABS: INR 1.03 (0.83-1.09); PROTHROMBIN TIME (PATIENT) 11.3 SEC (9.7-13.0)
[2024-06-29 22:58] LABS: ACTIVATED PTT 29.7 SECONDS (25.2-36.5)
[2024-06-29 23:16] LABS: POTASSIUM 4.8 mmol/L (3.5-5.1)
[2024-06-29 23:18] LABS: ALBUMIN 3.4 g/dl (3.4-5.0); BLOOD UREA NITROGEN 5.7 mg/dL (7-18); MAGNESIUM 1.9 mg/dL (1.8-2.4)
[2024-06-29 23:22] LABS: CREATININE 1.1 mg/dL (0.55-1.3)
[2024-06-29 23:23] LABS: BILIRUBIN,TOTAL 0.8 mg/dL (0.2-1); TOT PROT 7.2 g/dl (6.4-8.2)
[2024-06-30] MEDS ORDERED: ONDANSETRON 4 MG/2 ML VIAL ONE (00:24)
[2024-06-30] MEDS: ONDANSETRON 4 MG/2 ML VIAL IVPUSH ONE (00:28)
[2024-06-30 01:09] VITALS: BP 122/87; PULSE 76; RESP 14
== END 2024-06-30 01:12 | disposition home or self-care (01) ==
LOC: JER 21:39
PROC: 3E033GC Introduction of Other Therapeutic Substance into Peripheral Vein, Percutaneous Approach (ICD-10-PCS; principal; 2024-06-29)
PROC: 3E033NZ Introduction of Analgesics, Hypnotics, Sedatives into Peripheral Vein, Percutaneous Approach (ICD-10-PCS; 2024-06-29)
DX: R10.13 Epigastric pain (principal)
CPT/HCPCS: 0241U-QW; 36415; 71045-TC-FY; 76705-TC; 80053; 83605; 83690; 83735; 84484; 85025; 85610; 85730; 93005; 93010; 99285-25; J0131

== ENCOUNTER 2024-10-12 17:29 | Emergency (ER) | payer OTHER ==
[2024-10-12 17:39] VITALS: BP 127/88; RESP 18; TEMP 98.6; BMI 24.2
[2024-10-12 18:13] VITALS: PULSE 90
== END 2024-10-12 18:17 | disposition home or self-care (01) ==
LOC: JER 17:29
DX: F10.129 Alcohol abuse with intoxication, unspecified (principal); R00.0 Tachycardia, unspecified
CPT/HCPCS: 93005; 93010; 99283-25